=== PATIENT | male | born 1975 | race Caucasian/White ===

== ENCOUNTER → 2017-06-24 | Outpatient (REF) | payer OTHER ==
[2017-06-24 13:49] LABS: ALBUMIN 3.7 GM/DL (3.2-5.2); ALBUMIN/GLOBULIN RATIO 1.09 (1.00-1.93); ALKALINE PHOSPHATASE 103 U/L (45-117); ALT/SGPT 15 U/L (12-78); AST/SGOT 23 U/L (7-37); BILIRUBIN,DIRECT 0.1 MG/DL (0.0-0.2); BILIRUBIN,TOTAL 0.4 MG/DL (0.2-1.0); TOTAL PROTEIN 7.1 GM/DL (6.4-8.2)
[2017-06-26 08:09] LABS: HEPATITIS C QUANTITATION 60 IU/mL (.)
== END ==
LOC: M SFHCPLAZ 09:59
DX: B18.2 Chronic viral hepatitis C (principal)

== ENCOUNTER → 2017-08-13 | Outpatient (CLI) | payer MEDICAID, OTHER | LOC: M EKG 06:27 | DX: F11.20 Opioid dependence, uncomplicated (principal) | CPT/HCPCS: 93005 ==

== ENCOUNTER 2017-11-05 12:16 | Emergency (ER) | payer OTHER, MEDICAID | END 2017-11-05 14:20 | disposition home or self-care (01) | LOC: M ED 12:16 | DX: T78.40XA Allergy, unspecified, initial encounter (principal); X58.XXXA Exposure to other specified factors, initial encounter; Y92.89 Other specified places as the place of occurrence of the external cause; F33.9 Major depressive disorder, recurrent, unspecified; Z79.899 Other long term (current) drug therapy; F17.210 Nicotine dependence, cigarettes, uncomplicated | CPT/HCPCS: 99283 ==

== ENCOUNTER 2017-11-20 13:19 | Emergency (ER) | payer OTHER | END 2017-11-20 15:42 | disposition home or self-care (01) | LOC: M ED 13:19 | DX: J06.9 Acute upper respiratory infection, unspecified (principal); S40.869A Insect bite (nonvenomous) of unspecified upper arm, initial encounter; W57.XXXA Bitten or stung by nonvenomous insect and other nonvenomous arthropods, initial encounter; Y92.199 Unspecified place in other specified residential institution as the place of occurrence of the external cause; Y93.9 Activity, unspecified; Y99.9 Unspecified external cause status; F41.9 Anxiety disorder, unspecified; F32.9 Major depressive disorder, single episode, unspecified; Z72.0 Tobacco use; Z79.899 Other long term (current) drug therapy | CPT/HCPCS: 71046 ==

== ENCOUNTER → 2017-11-21 | Outpatient (CLI) | payer OTHER ==
[2017-11-21 15:50] LABS: ALBUMIN 3.9 GM/DL (3.2-5.2); ALBUMIN/GLOBULIN RATIO 1.18 (1.00-1.93); ALKALINE PHOSPHATASE 108 U/L (45-117); ALT/SGPT 22 U/L (12-78); AST/SGOT 21 U/L (7-37); BILIRUBIN,DIRECT < 0.1 MG/DL (0.0-0.2); BILIRUBIN,TOTAL 0.4 MG/DL (0.2-1.0); TOTAL PROTEIN 7.2 GM/DL (6.4-8.2)
[2017-11-26 14:16] LABS: HEPATITIS C QUANTITATION HCV Not Detected IU/mL (.)
== END ==
LOC: M LAB 14:47
DX: B18.2 Chronic viral hepatitis C (principal)
CPT/HCPCS: 80076

== ENCOUNTER 2018-02-24 12:49 | Emergency (ER) | payer OTHER | END 2018-02-24 14:39 | disposition home or self-care (01) | LOC: M ED 12:49 | DX: L25.0 Unspecified contact dermatitis due to cosmetics (principal); F33.9 Major depressive disorder, recurrent, unspecified; F41.9 Anxiety disorder, unspecified; Z79.899 Other long term (current) drug therapy; F17.210 Nicotine dependence, cigarettes, uncomplicated | CPT/HCPCS: 99282 ==

== ENCOUNTER 2018-04-15 11:36 | Emergency (ER) | payer OTHER ==
[~2018-04-15] VITALS: Ht 182.9 cm; Wt 109.1 kg
[~2018-04-15 11:36] MED LIST changes: -NAPR-50 PO; -VENL75CA47
[2018-04-15] MEDS ORDERED: VENL75CA47 (11:43)
--- NOTE | 2018-04-15 12:57 | REP ---
LEFT FOOT, FOUR VIEWS: HISTORY: Pain. There is no acute fracture or dislocation. The joint spaces are normal in appearance. IMPRESSION:There is no acute fracture or dislocation. Electronically Signed by Ladarius Kelly MD 04/15/2018 01:25 P
[2018-04-15] MEDS ORDERED: NAPR-50 PO (13:56)
[2018-04-15 13:59] VITALS: BP 148/88
== END 2018-04-15 14:04 | disposition home or self-care (01) ==
LOC: M ED 11:36
DX: M79.672 Pain in left foot (principal); F17.210 Nicotine dependence, cigarettes, uncomplicated

== ENCOUNTER → 2018-04-15 | Outpatient (CLI) | payer OTHER ==
[~2018-04-15] MED LIST: ALL10TAB28 PO; BUPR10TASR PO; BUPR15TA PO; HYDR-3363 PO; METH-872 PO; MIRA3350 PO; NAPR-50 PO; PRED10TA2 PO; PROZ10CA7 PO; REME15TA PO; SENN8.6C PO; SENN8.6T7 PO; SILV1CRE60 TOP; TESS100C PO; VENL75CA47
[2018-04-15 11:36] LABS: BASO # 0.1 10^3/uL (0.0-0.2); BASO % 0.6 % (0.0-1.0); EOS # 0.3 10^3/uL (0.0-0.50); EOS % 3.4 % (0.0-3.0); HEMATOCRIT 42.2 % (42.0-52.0); HEMOGLOBIN 13.9 g/dl (13.5-17.5); LYMPH # 3.8 10^3/uL (1.5-4.5); LYMPH % 39.9 % (24.0-44.0); MEAN CORPUSCULAR HEMOGLOBIN 29.3 pg (27.0-33.0); MEAN CORPUSCULAR HGB CONC 32.9 g/dl (32.0-36.5); MEAN CORPUSCULAR VOLUME 88.8 fl (80.0-96.0); MONO # 0.6 10^3/uL (0.0-0.8); NEUTROPHILS # 4.7 10^3/uL (1.8-7.7); NEUTROPHILS % 49.7 % (36.0-66.0); PLATELET COUNT, AUTOMATED 301 10^3/uL (150-450); RED BLOOD COUNT 4.75 10^6/uL (4.30-6.10); WHITE BLOOD COUNT 9.4 10^3/uL (4.0-10.0)
[2018-04-15 12:13] LABS: ALBUMIN 4.2 GM/DL (3.2-5.2); ALT/SGPT 17 U/L (12-78); BILIRUBIN,TOTAL 0.4 MG/DL (0.2-1.0); BLOOD UREA NITROGEN 21 MG/DL (7-18); CALCIUM LEVEL 9.4 MG/DL (8.5-10.1); CARBON DIOXIDE LEVEL 25 MEQ/L (21-32); CHLORIDE LEVEL 105 MEQ/L (98-107); CHOLESTEROL LEVEL 200 MG/DL (<200); CHOLESTEROL RISK RATIO 5.128 (<5); CREATININE FOR GFR 1.04 MG/DL (0.70-1.30); FREE T4 0.99 NG/DL (0.76-1.46); GLOMERULAR FILTRATION RATE > 60.0 (>60); GLUCOSE, FASTING 102 MG/DL (70-100); HDL CHOLESTEROL 39 MG/DL (>40); LDL CHOLESTEROL 135 MG/DL (<100); NON-HDL-C 161 MG/DL; POTASSIUM SERUM 4.9 MEQ/L (3.5-5.1); SODIUM LEVEL 138 MEQ/L (136-145); TESTOSTERONE 157 NG/DL (241-827); TOTAL 25(OH) VITAMIN D 31.1 NG/ML (30.0-100.0); TOTAL PROTEIN 7.7 GM/DL (6.4-8.2); TRIGLYCERIDES LEVEL 130 MG/DL (<150)
--- NOTE | 2018-04-16 01:31 | REP ---
Clinical: Obstructive sleep apnea Comparison: 11/20/2017 . Technique: PA and lateral. Findings: The mediastinum and cardiac silhouette are normal. The lung nieto are clear and without acute consolidation, effusion, or pneumothorax. The skeletal structures are intact and normal. Impression: 1. No acute cardiopulmonary process. Electronically Signed by Matthew Rhoades MD 04/16/2018 01:23 A
== END ==
LOC: M LAB 10:46
PROVIDERS: ATTEND Physician Assistant Medical
DX: E78.2 Mixed hyperlipidemia (principal)

== ENCOUNTER 2018-07-31 09:49 | Emergency (ER) | payer OTHER ==
[~2018-07-31] VITALS: Ht 182.9 cm; Wt 106.4 kg
[~2018-07-31 09:49] MED LIST changes: +NAPR-837 PO; +SENN1TAB41 PO; -SENN8.6T7 PO; +VENL75CA47
[2018-07-31] MEDS ORDERED: CLON-412 (09:59)
--- NOTE | 2018-07-31 11:45 | REP ---
CHEST: Two views. There is no evidence of acute infiltrate. No pleural effusion is seen. The heart is normal in size. The mediastinal silhouette is unremarkable. The visualized osseous structures are intact. IMPRESSION: No acute pulmonary disease. Electronically Signed by Omar English MD 07/31/2018 12:43 P
[2018-07-31 12:31] VITALS: BP 132/87
== END 2018-07-31 12:41 | disposition home or self-care (01) ==
LOC: M ED 09:49
DX: J06.9 Acute upper respiratory infection, unspecified (principal); F41.9 Anxiety disorder, unspecified; Z79.899 Other long term (current) drug therapy

== ENCOUNTER → 2018-09-01 | Outpatient (CLI) | payer OTHER ==
[~2018-09-01] MED LIST changes: +CLON-412
[2018-09-01 13:23] LABS: HEMATOCRIT 41.4 % (42.0-52.0); HEMOGLOBIN 13.2 g/dl (13.5-17.5); MEAN CORPUSCULAR HEMOGLOBIN 28.8 pg (27.0-33.0); MEAN CORPUSCULAR HGB CONC 31.9 g/dl (32.0-36.5); MEAN CORPUSCULAR VOLUME 90.4 fl (80.0-96.0); PLATELET COUNT, AUTOMATED 358 10^3/uL (150-450); RED BLOOD COUNT 4.58 10^6/uL (4.30-6.10)
[2018-09-01 13:43] LABS: ALT/SGPT 26 U/L (12-78); BILIRUBIN,TOTAL 0.2 MG/DL (0.2-1.0); BLOOD UREA NITROGEN 16 MG/DL (7-18); CALCIUM LEVEL 9.7 MG/DL (8.5-10.1); CARBON DIOXIDE LEVEL 30 MEQ/L (21-32); CHLORIDE LEVEL 104 MEQ/L (98-107); CREATININE FOR GFR 0.97 MG/DL (0.70-1.30); GLOMERULAR FILTRATION RATE > 60.0 (>60); GLUCOSE, FASTING 95 MG/DL (70-100); POTASSIUM SERUM 4.8 MEQ/L (3.5-5.1); SODIUM LEVEL 140 MEQ/L (136-145); TOTAL PROTEIN 7.9 GM/DL (6.4-8.2)
[2018-09-01 14:02] LABS: HEPATITIS B SURFACE ANTIGEN NEGATIVE (NEGATIVE)
[2018-09-01 14:30] LABS: HIV 1&2 SCREEN CENTAUR NEGATIVE (NEGATIVE)
[2018-09-01 14:46] LABS: CHLAMYDIA DNA AMPLIFICATION NEGATIVE (NEGATIVE); GC DNA AMPLIFICATION NEGATIVE (NEGATIVE)
[2018-09-01 15:26] LABS: HEPATITIS C VIRUS ABY INDEX > 11.0 INDEX (<0.8)
--- NOTE | 2018-09-04 22:54 | ECGEPIP ---
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
== END ==
LOC: M LAB 11:32
PROVIDERS: ATTEND Family Medicine
DX: F11.20 Opioid dependence, uncomplicated (principal)

== ENCOUNTER → 2019-05-19 | Outpatient (CLI) | payer OTHER ==
[~2019-05-19] MED LIST changes: -ALL10TAB28 PO; +ALL10TAB29 PO
[2019-05-19 10:33] LABS: BASO # 0.1 10^3/uL (0.0-0.2); BASO % 0.8 % (0.0-1.0); EOS # 0.3 10^3/uL (0.0-0.5); EOS % 4.2 % (0.0-3.0); HEMATOCRIT 38.6 % (42.0-52.0); HEMOGLOBIN 12.3 g/dl (13.5-17.5); LYMPH # 3.1 10^3/uL (1.5-5.0); MEAN CORPUSCULAR HEMOGLOBIN 29.8 pg (27.0-33.0); MEAN CORPUSCULAR HGB CONC 31.9 g/dl (32.0-36.5); MEAN CORPUSCULAR VOLUME 93.5 fl (80.0-96.0); MONO # 0.5 10^3/uL (0.0-0.8); MONO % 7.3 % (0.0-5.0); NEUTROPHILS # 3.2 10^3/uL (1.5-8.5); NEUTROPHILS % 44.3 % (36.0-66.0); PLATELET COUNT, AUTOMATED 314 10^3/uL (150-450); RED BLOOD COUNT 4.13 10^6/uL (4.30-6.10); WHITE BLOOD COUNT 7.1 10^3/uL (4.0-10.0)
[2019-05-19 11:09] LABS: ALBUMIN 3.3 GM/DL (3.2-5.2); ALT/SGPT 77 U/L (12-78); BILIRUBIN,TOTAL 0.3 MG/DL (0.2-1.0); BLOOD UREA NITROGEN 14 MG/DL (7-18); CALCIUM LEVEL 8.7 MG/DL (8.5-10.1); CARBON DIOXIDE LEVEL 30 MEQ/L (21-32); CHLORIDE LEVEL 105 MEQ/L (98-107); CHOLESTEROL LEVEL 174 MG/DL (<200); CHOLESTEROL RISK RATIO 4.578 (<5); CREATININE FOR GFR 0.77 MG/DL (0.70-1.30); GLOMERULAR FILTRATION RATE > 60.0 (>60); GLUCOSE, FASTING 107 MG/DL (70-100); HDL CHOLESTEROL 38 MG/DL (>40); LDL CHOLESTEROL 103 MG/DL (<100); NON-HDL-C 136 MG/DL; POTASSIUM SERUM 4.4 MEQ/L (3.5-5.1); SODIUM LEVEL 140 MEQ/L (136-145); TOTAL PROTEIN 6.7 GM/DL (6.4-8.2); TRIGLYCERIDES LEVEL 166 MG/DL (<150)
[2019-05-19 11:11] LABS: TOTAL 25(OH) VITAMIN D 19.3 NG/ML (30.0-100.0)
[2019-05-19 19:27] LABS: HEMOGLOBIN A1c 5.8 %
--- NOTE | 2019-05-20 05:12 | REP ---
Clinical: Bilateral knee pain and swelling. Technique: AP, lateral, bilateral oblique and sunrise views right and left knee. Findings: The osseous structures and joint spaces are intact and normal. There is no evidence for acute fracture or dislocation. No joint effusion is appreciated. No overt arthritic changes are appreciated. Surrounding soft tissues are unremarkable. No subcutaneous emphysema or radiodense foreign body. Impression: Normal age-appropriate bilateral knee examination. Electronically Signed by Matthew Rhoades MD 05/20/2019 05:03 A
--- NOTE | 2019-05-20 05:14 | REP ---
Clinical: Bilateral foot pain. Technique: AP, lateral, bilateral oblique views of the left foot. Findings: Osseous structures, joint spaces, and surrounding soft tissues are essentially age-appropriate. No overt arthritic changes are appreciated. No acute fracture dislocation identified. No subcutaneous emphysema or significant soft tissue calcifications noted. Lateral view demonstrates small calcaneal heal spur. Impression: Small calcaneal heal spur. Otherwise, age-appropriate examination. Electronically Signed by Matthew Rhoades MD 05/20/2019 05:05 A
== END ==
LOC: M LAB 09:19
PROVIDERS: ATTEND Nurse Practitioner Family
DX: Z13.9 Encounter for screening, unspecified (principal); M77.32 Calcaneal spur, left foot; Z72.0 Tobacco use; M54.9 Dorsalgia, unspecified; M79.89 Other specified soft tissue disorders; M25.462 Effusion, left knee; M25.561 Pain in right knee

== ENCOUNTER 2022-07-18 13:34 | Inpatient (IN) | payer OTHER ==
[~2022-07-18] VITALS: Ht 182.9 cm; Wt 81.1 kg
[~2022-07-18 13:34] MED LIST changes: -ALL10TAB29 PO; +CETI-24 PO; +METH-1178 PO; -METH-872 PO; +MIRT-62 PO; -REME15TA PO
[2022-07-18] MEDS ORDERED: ACETAMINOPHEN 325 MG TAB PO ONE (16:15)
[2022-07-18 18:23] LABS: RSV AMPLIFICATION NEGATIVE (NEGATIVE)
[2022-07-18 18:53] LABS: BASO % 0.2 % (0.0-1.0); EOS % 0.2 % (0.0-3.0); HEMATOCRIT 34.7 % (42.0-52.0); LYMPH # 1.6 10^3/uL (1.5-5.0); LYMPH % 11.9 % (24.0-44.0); MEAN CORPUSCULAR HEMOGLOBIN 26.3 pg (27.0-33.0); MEAN CORPUSCULAR HGB CONC 31.7 g/dl (32.0-36.5); MONO % 7.7 % (2.0-8.0); NEUTROPHILS # 10.6 10^3/uL (1.5-8.5); NEUTROPHILS % 79.4 % (36.0-66.0); PLATELET COUNT, AUTOMATED 468 10^3/uL (150-450); RED BLOOD COUNT 4.18 10^6/uL (4.30-6.10); WHITE BLOOD COUNT 13.3 10^3/uL (4.0-10.0)
[2022-07-18 19:03] LABS: INR 1.11; PARTIAL THROMBOPLASTIN TIME 28.5 SECONDS (24.8-34.2); PROTHROMBIN TIME 14.5 SECONDS (12.5-14.5)
[2022-07-18 19:04] LABS: ERYTHROCYTE SEDIMENTATION RATE 91 mm/hr (0-15)
[2022-07-18 19:20] LABS: ALBUMIN 2.2 G/DL (3.2-5.2); ALKALINE PHOSPHATASE 127 U/L (46-116); ALT/SGPT 47 U/L (7.0-40); AST/SGOT 58 U/L (<34); BILIRUBIN,DIRECT 0.5 MG/DL (<0.4); BILIRUBIN,TOTAL 0.9 MG/DL (0.3-1.2); BLOOD UREA NITROGEN 9 MG/DL (9-23); CALCIUM LEVEL 8.4 MG/DL (8.5-10.1); CARBON DIOXIDE LEVEL 29 MMOL/L (20-31); CHLORIDE LEVEL 97 MMOL/L (98-107); CREATININE FOR GFR 0.68 MG/DL (0.70-1.30); GLOMERULAR FILTRATION RATE > 60.0 (>60); GLUCOSE, FASTING 106 MG/DL (60-100); POTASSIUM SERUM 3.9 MMOL/L (3.5-5.1); SODIUM LEVEL 132 MMOL/L (136-145); TOTAL PROTEIN 6.8 G/DL (5.7-8.2)
[2022-07-18] MEDS ORDERED: KETOROLAC 30 MG/ML 1ML VIAL IV ONE (20:25)
[2022-07-18] MEDS ORDERED: VANCOMYCIN HCL 1,750 MG in NS 250 ML IV ONE (20:45)
[2022-07-18] MEDS ORDERED: VANCOMYCIN HCL 1,000 MG, VIAL MATE ADAPTER 1 EACH in D5W 250 ML IV ONE (21:00)
[2022-07-18] MEDS ORDERED: VANCOMYCIN HCL 750 MG, VIAL MATE ADAPTER 1 EACH in D5W 250 ML IV ONE (22:00)
[2022-07-18] MEDS ORDERED: ACETAMINOPHEN TAB 650MG DOSE (2X325MG) PO PRN (22:05)
[2022-07-18] MEDS ORDERED: HEPARIN SOD (PORCINE) 5000UNITS/ML 1ML VIAL/SYRINGE IV PRN (23:45)
[2022-07-19 00:27] LABS: HEMATOCRIT 37.9 % (42.0-52.0); HEMOGLOBIN 11.8 g/dl (13.5-17.5); MEAN CORPUSCULAR HEMOGLOBIN 26.2 pg (27.0-33.0); MEAN CORPUSCULAR HGB CONC 31.1 g/dl (32.0-36.5); PLATELET COUNT, AUTOMATED 469 10^3/uL (150-450); RED BLOOD COUNT 4.51 10^6/uL (4.30-6.10); WHITE BLOOD COUNT 11.7 10^3/uL (4.0-10.0)
[2022-07-19] MEDS: NS 1,000 ML IV SCH ×3 (00:27→17:48)
[2022-07-19] MEDS: HEPARIN DRIP 25,000 UNITS in IV 1 EA IV SCH ×3 (00:34→12:09)
[2022-07-19 01:22] LABS: PHENCYCLIDINE URINE NEGATIVE (NEGATIVE)
[2022-07-19 01:23] LABS: BARBITURATES URINE NEGATIVE (NEGATIVE); BENZODIAZEPINES URINE NEGATIVE (NEGATIVE); CANNABINOIDS URINE NEGATIVE (NEGATIVE); COCAINE METABOLITE URINE NEGATIVE (NEGATIVE); METHADONE URINE NEGATIVE (NEGATIVE); OPIATES URINE NEGATIVE (NEGATIVE)
[2022-07-19 01:25] LABS: AMPHETAMINES LEVEL URINE POSITIVE (NEGATIVE)
[2022-07-19] MEDS ORDERED: HOME MED LIST COMPLETE! XX SCH (05:45)
[2022-07-19 07:05] LABS: HEMATOCRIT 36.9 % (42.0-52.0); HEMOGLOBIN 11.4 g/dl (13.5-17.5); MEAN CORPUSCULAR HGB CONC 30.9 g/dl (32.0-36.5); MEAN CORPUSCULAR VOLUME 84.2 fl (80.0-96.0); PLATELET COUNT, AUTOMATED 440 10^3/uL (150-450); RED BLOOD COUNT 4.38 10^6/uL (4.30-6.10); WHITE BLOOD COUNT 9.7 10^3/uL (4.0-10.0)
[2022-07-19 07:17] LABS: INR 1.05; PROTHROMBIN TIME 13.9 SECONDS (12.5-14.5)
[2022-07-19 07:18] LABS: PARTIAL THROMBOPLASTIN TIME 41.1 SECONDS (24.8-34.2)
[2022-07-19 07:29] LABS: PERCENT SATURATION 6.7 % (19.7-50.0)
[2022-07-19 07:30] LABS: ALBUMIN 2.4 G/DL (3.2-5.2); ALKALINE PHOSPHATASE 112 U/L (46-116); ALT/SGPT 42 U/L (7.0-40); AST/SGOT 54 U/L (<34); BILIRUBIN,TOTAL 0.8 MG/DL (0.3-1.2); BLOOD UREA NITROGEN 7 MG/DL (9-23); CALCIUM LEVEL 8.8 MG/DL (8.5-10.1); CARBON DIOXIDE LEVEL 30 MMOL/L (20-31); CHLORIDE LEVEL 100 MMOL/L (98-107); CREATININE FOR GFR 0.72 MG/DL (0.70-1.30); FERRITIN 290.6 NG/ML (10.5-307.3); GLOMERULAR FILTRATION RATE > 60.0 (>60); GLUCOSE, FASTING 99 MG/DL (60-100); MAGNESIUM LEVEL 1.7 MG/DL (1.8-2.4); POTASSIUM SERUM 3.4 MMOL/L (3.5-5.1); SODIUM LEVEL 136 MMOL/L (136-145); TOTAL PROTEIN 7.2 G/DL (5.7-8.2)
[2022-07-19 07:32] LABS: FOLATE 11.16 NG/ML (>5.4)
[2022-07-19] MEDS: VANCOMYCIN HCL 1,000 MG, VIAL MATE ADAPTER 1 EACH in D5W 250 ML IV SCH ×3 (07:44→23:28)
[2022-07-19] MEDS ORDERED: cefTRIAXone SOD 1 GM in D5W MINI-BAG PLUS 50 ML IV SCH (08:00)
[2022-07-19] MEDS ORDERED: LIDOCAINE 1% MDV 20ML VIAL As Ordered ONE (14:12)
[2022-07-19 14:56] LABS: SOURCE, BODY FLUID RT HIP; SYNOVIAL FLUID COLOR RED (COLORLESS)
[2022-07-19 14:59] VITALS: BP 116/74; TEMP 98; O2SAT 98
[2022-07-19 14:59] LABS: SOURCE, BODY FLUID URIC ACID OTHER
[2022-07-19 15:00] LABS: SOURCE, BODY FLUID GLUCOSE HIP RIGHT
[2022-07-19 15:02] LABS: INR 1.09; PROTHROMBIN TIME 14.3 SECONDS (12.5-14.5)
[2022-07-19 15:03] LABS: PARTIAL THROMBOPLASTIN TIME 44.9 SECONDS (24.8-34.2)
[2022-07-19 15:13] LABS: CRYSTALS, BODY FLUID NONE SEEN (NONE SEEN); SOURCE, BODY FLUID CRYSTALS RIGHT HIP
[2022-07-19] MEDS ORDERED: MAG SULF 1GM/100ML (MAG RUN) 1 GM in IV 1 EA IV SCH (19:05)
[2022-07-19] MEDS ORDERED: MAG SULF 1GM/100ML (MAG RUN) 1 GM in IV 1 EA IV ONE (19:08)
[2022-07-19] MEDS ORDERED: PROHANCE 279.3MG/ML 15ML VIAL As Ordered ONE (20:00)
[2022-07-19] MEDS ORDERED: PROHANCE 279.3MG/ML 5ML VIAL As Ordered ONE (20:00)
[2022-07-19] MEDS: PERCOCET 5MG/325MG TAB PO PRN (21:14)
[2022-07-19] MEDS ORDERED: cefTRIAXone SOD 2GM VIAL IM SCH (22:00)
[2022-07-19] MEDS ORDERED: cefTRIAXone SOD 2 GM in D5W MINI-BAG PLUS 50 ML IV SCH (22:00)
[2022-07-19 23:56] VITALS: BP 109/55; TEMP 96.8; O2SAT 96
[2022-07-20] MEDS: NS 1,000 ML IV SCH ×2 (04:05→14:55)
[2022-07-20] MEDS: VANCOMYCIN HCL 1,000 MG, VIAL MATE ADAPTER 1 EACH in D5W 250 ML IV SCH ×3 (04:50→20:15)
[2022-07-20] MEDS: HEPARIN DRIP 25,000 UNITS in IV 1 EA IV SCH ×2 (05:12→15:04)
[2022-07-20 05:19] VITALS: BP 112/58; TEMP 97.9; O2SAT 95
[2022-07-20] MEDS: PERCOCET 5MG/325MG TAB PO PRN (05:29)
[2022-07-20 08:07] LABS: BASO # 0.1 10^3/uL (0.0-0.2); BASO % 0.5 % (0.0-1.0); EOS # 0.1 10^3/uL (0.0-0.5); EOS % 1.1 % (0.0-3.0); HEMATOCRIT 32.5 % (42.0-52.0); HEMOGLOBIN 10.1 g/dl (13.5-17.5); LYMPH # 2.3 10^3/uL (1.5-5.0); LYMPH % 24.8 % (24.0-44.0); MEAN CORPUSCULAR HEMOGLOBIN 26.2 pg (27.0-33.0); MEAN CORPUSCULAR HGB CONC 31.1 g/dl (32.0-36.5); MEAN CORPUSCULAR VOLUME 84.4 fl (80.0-96.0); MONO # 0.7 10^3/uL (0.0-0.8); MONO % 7.7 % (2.0-8.0); NEUTROPHILS # 6.2 10^3/uL (1.5-8.5); NEUTROPHILS % 65.3 % (36.0-66.0); PLATELET COUNT, AUTOMATED 424 10^3/uL (150-450); RED BLOOD COUNT 3.85 10^6/uL (4.30-6.10); WHITE BLOOD COUNT 9.4 10^3/uL (4.0-10.0)
[2022-07-20 08:40] VITALS: BP 111/65; TEMP 98.2; O2SAT 95
[2022-07-20 08:44] LABS: BLOOD UREA NITROGEN 8 MG/DL (9-23); CALCIUM LEVEL 7.5 MG/DL (8.5-10.1); CARBON DIOXIDE LEVEL 29 MMOL/L (20-31); CHLORIDE LEVEL 103 MMOL/L (98-107); CREATININE FOR GFR 0.66 MG/DL (0.70-1.30); GLOMERULAR FILTRATION RATE > 60.0 (>60); GLUCOSE, FASTING 127 MG/DL (60-100); POTASSIUM SERUM 3.9 MMOL/L (3.5-5.1); SODIUM LEVEL 137 MMOL/L (136-145)
[2022-07-20 12:50] VITALS: BP 102/62; TEMP 97.7; O2SAT 99
[2022-07-20] MEDS: MUPIROCIN 2% OINT 22 GM TUBE TOP SCH ×2 (14:55→20:15)
[2022-07-20 15:52] VITALS: BP 118/72; TEMP 97.7; O2SAT 100
[2022-07-20 20:46] VITALS: BP 133/63; TEMP 97.9; O2SAT 98
[2022-07-21] VITALS (9 sets, daily range): BP systolic 119–136; BP diastolic 67–81; TEMP 96.8–97.8; O2SAT 95–100
[2022-07-21] MEDS: PERCOCET 5MG/325MG TAB PO PRN ×2 (02:18→20:19)
[2022-07-21] MEDS: NS 1,000 ML IV SCH ×2 (02:19→10:05)
[2022-07-21] MEDS: VANCOMYCIN HCL 1,000 MG, VIAL MATE ADAPTER 1 EACH in D5W 250 ML IV SCH ×3 (04:00→20:19)
[2022-07-21] MEDS ORDERED: MIDAZOLAM INJ 2MG/2ML VIAL As Ordered ONE (07:25)
[2022-07-21] MEDS ORDERED: LIDOCAINE 2% 100MG/5ML SDV (FOR ANES.) As Ordered ONE (07:25)
[2022-07-21] MEDS ORDERED: propofoL 200 MG/20 ML VIAL As Ordered ONE (07:25)
[2022-07-21] MEDS ORDERED: fentaNYL 100 MCG/2 ML INJECTION As Ordered ONE ×3 (07:25→10:45)
[2022-07-21] MEDS ORDERED: VANCOMYCIN 1000MG/20ML VIAL As Ordered ONE (08:29)
[2022-07-21] MEDS ORDERED: GENTAMICIN SULF 80MG/2ML VIAL As Ordered ONE (08:29)
[2022-07-21] MEDS ORDERED: ROCURONIUM BROMIDE 50MG/5ML VIAL As Ordered ONE (09:06)
[2022-07-21] MEDS ORDERED: PHENYLephrine 500MCG 5ML (100MCG/ML) SYRINGE As Ordered ONE ×2 (09:35→09:51)
[2022-07-21] MEDS ORDERED: ONDANSETRON 4MG 2ML VIAL As Ordered ONE (09:42)
[2022-07-21] MEDS ORDERED: METOCLOPRAMIDE INJ 10MG/2ML VIAL As Ordered ONE (09:42)
[2022-07-21] MEDS ORDERED: ACETAMINOPHEN 1000MG 100ML IV BAG As Ordered ONE (09:44)
[2022-07-21] MEDS ORDERED: SUGAMMADEX SODIUM 500 MG/5 ML VIAL (BRIDION) As Ordered ONE (09:45)
[2022-07-21] MEDS ORDERED: oxyCODONE 5MG TAB PO PRN (10:45)
[2022-07-21] MEDS ORDERED: ONDANSETRON 4MG 2ML VIAL IV PRN (10:45)
[2022-07-21] MEDS ORDERED: MORPHINE 2 MG/ML 1ML VIAL IV PRN (10:45)
[2022-07-21] MEDS: fentaNYL 100 MCG/2 ML INJECTION IV PRN ×4 (10:47→11:07)
[2022-07-21] MEDS: MUPIROCIN 2% OINT 22 GM TUBE TOP SCH ×2 (11:53→20:19)
[2022-07-21] MEDS ORDERED: HEPARIN SOD (PORCINE) 5000UNITS/ML 1ML VIAL/SYRINGE IV ONE (16:50)
[2022-07-21] MEDS: HEPARIN DRIP 25,000 UNITS in IV 1 EA IV SCH (18:51)
[2022-07-22] MEDS: NS 1,000 ML IV SCH ×3 (01:11→13:05)
[2022-07-22 01:17] LABS: HEMATOCRIT 34.3 % (42.0-52.0); HEMOGLOBIN 10.6 g/dl (13.5-17.5); MEAN CORPUSCULAR HEMOGLOBIN 25.8 pg (27.0-33.0); MEAN CORPUSCULAR HGB CONC 30.9 g/dl (32.0-36.5); MEAN CORPUSCULAR VOLUME 83.5 fl (80.0-96.0); PLATELET COUNT, AUTOMATED 506 10^3/uL (150-450); RED BLOOD COUNT 4.11 10^6/uL (4.30-6.10); WHITE BLOOD COUNT 10.6 10^3/uL (4.0-10.0)
[2022-07-22 01:34] LABS: INR 1.01; PROTHROMBIN TIME 13.5 SECONDS (12.5-14.5)
[2022-07-22 01:35] LABS: PARTIAL THROMBOPLASTIN TIME 37.5 SECONDS (24.8-34.2)
[2022-07-22] MEDS: HEPARIN SOD (PORCINE) 5000UNITS/ML 1ML VIAL/SYRINGE IV PRN ×2 (01:51→15:40)
[2022-07-22] MEDS: VANCOMYCIN HCL 1,000 MG, VIAL MATE ADAPTER 1 EACH in D5W 250 ML IV SCH ×3 (04:33→20:10)
[2022-07-22 04:49] VITALS: BP 116/61; TEMP 97.9; O2SAT 95
[2022-07-22] MEDS: HEPARIN DRIP 25,000 UNITS in IV 1 EA IV SCH ×2 (06:26→20:28)
[2022-07-22 07:49] VITALS: BP 109/61; TEMP 98.4; O2SAT 97
[2022-07-22 08:29] LABS: HEMATOCRIT 34.5 % (42.0-52.0); HEMOGLOBIN 10.8 g/dl (13.5-17.5); MEAN CORPUSCULAR HEMOGLOBIN 26.2 pg (27.0-33.0); MEAN CORPUSCULAR HGB CONC 31.3 g/dl (32.0-36.5); MEAN CORPUSCULAR VOLUME 83.7 fl (80.0-96.0); PLATELET COUNT, AUTOMATED 475 10^3/uL (150-450); RED BLOOD COUNT 4.12 10^6/uL (4.30-6.10); WHITE BLOOD COUNT 11.1 10^3/uL (4.0-10.0)
[2022-07-22] MEDS: MUPIROCIN 2% OINT 22 GM TUBE TOP SCH ×2 (08:40→20:29)
[2022-07-22 08:46] LABS: INR 1.06
[2022-07-22 08:49] LABS: PARTIAL THROMBOPLASTIN TIME 107.5 SECONDS (24.8-34.2)
[2022-07-22 09:00] LABS: BLOOD UREA NITROGEN < 5 MG/DL (9-23); CARBON DIOXIDE LEVEL 29 MMOL/L (20-31); CHLORIDE LEVEL 104 MMOL/L (98-107); CREATININE FOR GFR 0.63 MG/DL (0.70-1.30); GLOMERULAR FILTRATION RATE > 60.0 (>60); GLUCOSE, FASTING 146 MG/DL (60-100); POTASSIUM SERUM 4.2 MMOL/L (3.5-5.1); SODIUM LEVEL 138 MMOL/L (136-145)
[2022-07-22] MEDS: PERCOCET 5MG/325MG TAB PO PRN (15:53)
[2022-07-22 20:13] VITALS: BP 108/66; TEMP 97.9; O2SAT 98
[2022-07-23] MEDS: NS 1,000 ML IV SCH ×2 (02:34→12:57)
[2022-07-23 03:56] LABS: HEMOGLOBIN 10.4 g/dl (13.5-17.5); MEAN CORPUSCULAR HEMOGLOBIN 26.3 pg (27.0-33.0); MEAN CORPUSCULAR HGB CONC 31.5 g/dl (32.0-36.5); MEAN CORPUSCULAR VOLUME 83.3 fl (80.0-96.0); PLATELET COUNT, AUTOMATED 468 10^3/uL (150-450); RED BLOOD COUNT 3.96 10^6/uL (4.30-6.10); WHITE BLOOD COUNT 12.1 10^3/uL (4.0-10.0)
[2022-07-23 04:08] LABS: INR 1.09; PROTHROMBIN TIME 14.3 SECONDS (12.5-14.5)
[2022-07-23 04:21] VITALS: BP 126/68; TEMP 97.7; O2SAT 96
[2022-07-23] MEDS: VANCOMYCIN HCL 1,000 MG, VIAL MATE ADAPTER 1 EACH in D5W 250 ML IV SCH ×3 (04:29→19:58)
[2022-07-23] MEDS: PERCOCET 5MG/325MG TAB PO PRN ×3 (04:33→15:00)
[2022-07-23 04:57] LABS: BLOOD UREA NITROGEN 6 MG/DL (9-23); CALCIUM LEVEL 7.9 MG/DL (8.5-10.1); CARBON DIOXIDE LEVEL 27 MMOL/L (20-31); CHLORIDE LEVEL 102 MMOL/L (98-107); CREATININE FOR GFR 0.63 MG/DL (0.70-1.30); GLOMERULAR FILTRATION RATE > 60.0 (>60); GLUCOSE, FASTING 108 MG/DL (60-100); POTASSIUM SERUM 3.9 MMOL/L (3.5-5.1); SODIUM LEVEL 134 MMOL/L (136-145)
[2022-07-23 05:15] LABS: PARTIAL THROMBOPLASTIN TIME 138.2 SECONDS (24.8-34.2)
[2022-07-23 07:57] VITALS: BP 109/63; TEMP 97.1; O2SAT 94
[2022-07-23] MEDS: MUPIROCIN 2% OINT 22 GM TUBE TOP SCH ×2 (09:29→19:59)
[2022-07-23] MEDS: ENOXAPARIN 80MG/0.8ML SYRINGE (J1650 PER 10MG) SC SCH ×2 (09:29→19:58)
[2022-07-23 09:54] LABS: GLOMERULAR FILTRATION RATE > 60.0 (>60)
[2022-07-23 15:40] VITALS: BP 106/74; TEMP 97.9; O2SAT 95
[2022-07-23 19:54] VITALS: BP 116/62; TEMP 98.1; O2SAT 98
[2022-07-23 21:38] VITALS: BP 111/63; TEMP 97.7; O2SAT 98
[2022-07-24] MEDS: NS 1,000 ML IV SCH ×2 (02:28→08:27)
[2022-07-24] MEDS: VANCOMYCIN HCL 1,000 MG, VIAL MATE ADAPTER 1 EACH in D5W 250 ML IV SCH ×3 (03:51→19:47)
[2022-07-24 04:47] VITALS: BP 110/68
[2022-07-24] MEDS: PERCOCET 5MG/325MG TAB PO PRN ×3 (04:50→23:50)
[2022-07-24 05:54] VITALS: BP 110/66; TEMP 97.9; O2SAT 94
[2022-07-24 06:00] VITALS: BP 110/66; TEMP 97.9; O2SAT 94
[2022-07-24 06:28] LABS: HEMATOCRIT 33.8 % (42.0-52.0); HEMOGLOBIN 10.4 g/dl (13.5-17.5); MEAN CORPUSCULAR HEMOGLOBIN 26.1 pg (27.0-33.0); MEAN CORPUSCULAR HGB CONC 30.8 g/dl (32.0-36.5); MEAN CORPUSCULAR VOLUME 84.7 fl (80.0-96.0); PLATELET COUNT, AUTOMATED 451 10^3/uL (150-450); RED BLOOD COUNT 3.99 10^6/uL (4.30-6.10); WHITE BLOOD COUNT 9.8 10^3/uL (4.0-10.0)
[2022-07-24 06:50] LABS: BLOOD UREA NITROGEN 7 MG/DL (9-23); CARBON DIOXIDE LEVEL 27 MMOL/L (20-31); CHLORIDE LEVEL 104 MMOL/L (98-107); CREATININE FOR GFR 0.62 MG/DL (0.70-1.30); GLOMERULAR FILTRATION RATE > 60.0 (>60); GLUCOSE, FASTING 105 MG/DL (60-100); POTASSIUM SERUM 4.1 MMOL/L (3.5-5.1); SODIUM LEVEL 137 MMOL/L (136-145)
[2022-07-24] MEDS: ENOXAPARIN 80MG/0.8ML SYRINGE (J1650 PER 10MG) SC SCH ×2 (08:26→19:48)
[2022-07-24] MEDS: MUPIROCIN 2% OINT 22 GM TUBE TOP SCH ×2 (08:27→19:47)
[2022-07-24 08:33] LABS: MAGNESIUM LEVEL 1.6 MG/DL (1.8-2.4)
[2022-07-24] MEDS: MAG SULF 1GM/100ML (MAG RUN) 1 GM in IV 1 EA IV SCH ×2 (10:29→11:42)
[2022-07-24 14:00] VITALS: BP 110/67; TEMP 97.7; O2SAT 100
[2022-07-24 23:42] VITALS: BP 111/65
[2022-07-25] MEDS: VANCOMYCIN HCL 1,000 MG, VIAL MATE ADAPTER 1 EACH in D5W 250 ML IV SCH ×3 (03:29→20:04)
[2022-07-25 05:32] VITALS: BP 111/71; TEMP 98.1; O2SAT 95
[2022-07-25 06:25] LABS: BASO # 0.1 10^3/uL (0.0-0.2); BASO % 0.5 % (0.0-1.0); EOS # 0.3 10^3/uL (0.0-0.5); EOS % 3.2 % (0.0-3.0); HEMATOCRIT 36.6 % (42.0-52.0); HEMOGLOBIN 11.3 g/dl (13.5-17.5); LYMPH # 2.3 10^3/uL (1.5-5.0); LYMPH % 22.8 % (24.0-44.0); MEAN CORPUSCULAR HEMOGLOBIN 26.3 pg (27.0-33.0); MEAN CORPUSCULAR HGB CONC 30.9 g/dl (32.0-36.5); MEAN CORPUSCULAR VOLUME 85.3 fl (80.0-96.0); MONO # 0.7 10^3/uL (0.0-0.8); MONO % 6.6 % (2.0-8.0); NEUTROPHILS # 6.8 10^3/uL (1.5-8.5); NEUTROPHILS % 65.9 % (36.0-66.0); PLATELET COUNT, AUTOMATED 506 10^3/uL (150-450); RED BLOOD COUNT 4.29 10^6/uL (4.30-6.10); WHITE BLOOD COUNT 10.2 10^3/uL (4.0-10.0)
[2022-07-25 06:52] LABS: BLOOD UREA NITROGEN 8 MG/DL (9-23); CALCIUM LEVEL 8.2 MG/DL (8.5-10.1); CARBON DIOXIDE LEVEL 28 MMOL/L (20-31); CHLORIDE LEVEL 103 MMOL/L (98-107); CREATININE FOR GFR 0.59 MG/DL (0.70-1.30); GLOMERULAR FILTRATION RATE > 60.0 (>60); GLUCOSE, FASTING 97 MG/DL (60-100); MAGNESIUM LEVEL 1.7 MG/DL (1.8-2.4); POTASSIUM SERUM 4.5 MMOL/L (3.5-5.1); SODIUM LEVEL 137 MMOL/L (136-145)
[2022-07-25] MEDS: ENOXAPARIN 80MG/0.8ML SYRINGE (J1650 PER 10MG) SC SCH ×2 (09:13→20:05)
[2022-07-25] MEDS: MUPIROCIN 2% OINT 22 GM TUBE TOP SCH ×2 (09:14→20:05)
[2022-07-25] MEDS: PERCOCET 5MG/325MG TAB PO PRN ×3 (09:18→21:05)
[2022-07-25] MEDS ORDERED: LIDOCAINE 1% MDV 20ML VIAL As Ordered ONE (13:53)
[2022-07-25] MEDS ORDERED: SODIUM CHLORIDE 0.9% INJ 10 ML SYR IV PRN (15:35)
[2022-07-25] MEDS: SODIUM CHLORIDE 0.9% INJ 10 ML SYR IV SCH (18:17)
[2022-07-26] MEDS: VANCOMYCIN HCL 1,000 MG, VIAL MATE ADAPTER 1 EACH in D5W 250 ML IV SCH ×3 (03:57→19:55)
[2022-07-26] MEDS: SODIUM CHLORIDE 0.9% INJ 10 ML SYR IV SCH ×2 (05:14→17:35)
[2022-07-26 06:00] VITALS: BP 124/75; TEMP 98.1; O2SAT 97
[2022-07-26 06:20] LABS: BASO % 0.4 % (0.0-1.0); EOS # 0.3 10^3/uL (0.0-0.5); EOS % 2.6 % (0.0-3.0); HEMATOCRIT 36.3 % (42.0-52.0); HEMOGLOBIN 11.2 g/dl (13.5-17.5); LYMPH # 2.3 10^3/uL (1.5-5.0); LYMPH % 21.6 % (24.0-44.0); MEAN CORPUSCULAR HEMOGLOBIN 26.2 pg (27.0-33.0); MEAN CORPUSCULAR HGB CONC 30.9 g/dl (32.0-36.5); MONO # 0.8 10^3/uL (0.0-0.8); MONO % 7.2 % (2.0-8.0); NEUTROPHILS # 7.1 10^3/uL (1.5-8.5); NEUTROPHILS % 67.2 % (36.0-66.0); PLATELET COUNT, AUTOMATED 480 10^3/uL (150-450); RED BLOOD COUNT 4.27 10^6/uL (4.30-6.10); WHITE BLOOD COUNT 10.5 10^3/uL (4.0-10.0)
[2022-07-26 06:49] LABS: BLOOD UREA NITROGEN 10 MG/DL (9-23); CALCIUM LEVEL 8.2 MG/DL (8.5-10.1); CARBON DIOXIDE LEVEL 29 MMOL/L (20-31); CHLORIDE LEVEL 102 MMOL/L (98-107); CREATININE FOR GFR 0.61 MG/DL (0.70-1.30); GLOMERULAR FILTRATION RATE > 60.0 (>60); GLUCOSE, FASTING 101 MG/DL (60-100); MAGNESIUM LEVEL 1.6 MG/DL (1.8-2.4); POTASSIUM SERUM 4.4 MMOL/L (3.5-5.1); SODIUM LEVEL 135 MMOL/L (136-145)
[2022-07-26] MEDS: MUPIROCIN 2% OINT 22 GM TUBE TOP SCH ×2 (09:52→19:57)
[2022-07-26] MEDS: ENOXAPARIN 80MG/0.8ML SYRINGE (J1650 PER 10MG) SC SCH ×2 (09:52→19:56)
[2022-07-26] MEDS: PERCOCET 5MG/325MG TAB PO PRN (09:53)
[2022-07-26] MEDS ORDERED: MIRALAX *UNIT DOSE* 17GM PACKET PO PRN (13:40)
[2022-07-26] MEDS ORDERED: MOM 30ML SUSPENSION UDC PO PRN (13:40)
[2022-07-26] MEDS: SENOKOT S TAB PO PRN (14:32)
[2022-07-26] MEDS: MAGNESIUM OXIDE 400MG TAB (MAG-OX) PO SCH (14:32)
[2022-07-26] MEDS: oxyCODONE 5MG TAB PO PRN (15:58)
[2022-07-27] MEDS: oxyCODONE 5MG TAB PO PRN ×2 (03:11→09:52)
[2022-07-27] MEDS: VANCOMYCIN HCL 1,000 MG, VIAL MATE ADAPTER 1 EACH in D5W 250 ML IV SCH ×3 (04:22→19:49)
[2022-07-27] MEDS: SODIUM CHLORIDE 0.9% INJ 10 ML SYR IV SCH ×2 (05:59→14:22)
[2022-07-27 06:00] VITALS: BP 105/70; TEMP 97.5; O2SAT 94
[2022-07-27 06:48] LABS: BASO # 0.1 10^3/uL (0.0-0.2); BASO % 0.5 % (0.0-1.0); EOS # 0.2 10^3/uL (0.0-0.5); HEMATOCRIT 34.7 % (42.0-52.0); HEMOGLOBIN 10.8 g/dl (13.5-17.5); LYMPH # 2.4 10^3/uL (1.5-5.0); LYMPH % 24.1 % (24.0-44.0); MEAN CORPUSCULAR HEMOGLOBIN 26.2 pg (27.0-33.0); MEAN CORPUSCULAR HGB CONC 31.1 g/dl (32.0-36.5); MEAN CORPUSCULAR VOLUME 84.2 fl (80.0-96.0); MONO # 0.8 10^3/uL (0.0-0.8); MONO % 7.4 % (2.0-8.0); NEUTROPHILS # 6.6 10^3/uL (1.5-8.5); NEUTROPHILS % 65.2 % (36.0-66.0); PLATELET COUNT, AUTOMATED 491 10^3/uL (150-450); RED BLOOD COUNT 4.12 10^6/uL (4.30-6.10); WHITE BLOOD COUNT 10.1 10^3/uL (4.0-10.0)
[2022-07-27 07:18] LABS: BLOOD UREA NITROGEN 11 MG/DL (9-23); CALCIUM LEVEL 8.6 MG/DL (8.5-10.1); CARBON DIOXIDE LEVEL 29 MMOL/L (20-31); CHLORIDE LEVEL 100 MMOL/L (98-107); CREATININE FOR GFR 0.63 MG/DL (0.70-1.30); GLOMERULAR FILTRATION RATE > 60.0 (>60); GLUCOSE, FASTING 123 MG/DL (60-100); MAGNESIUM LEVEL 1.8 MG/DL (1.8-2.4); POTASSIUM SERUM 4.4 MMOL/L (3.5-5.1); SODIUM LEVEL 134 MMOL/L (136-145)
[2022-07-27] MEDS: ENOXAPARIN 80MG/0.8ML SYRINGE (J1650 PER 10MG) SC SCH ×2 (09:50→19:49)
[2022-07-27] MEDS: SENOKOT S TAB PO PRN (09:51)
[2022-07-27] MEDS: MUPIROCIN 2% OINT 22 GM TUBE TOP SCH ×2 (09:51→19:57)
[2022-07-27] MEDS: MAGNESIUM OXIDE 400MG TAB (MAG-OX) PO SCH (09:51)
[2022-07-27] MEDS ORDERED: ISOVUE-370 76% 100ML VIAL As Ordered ONE (11:43)
[2022-07-27] MEDS: MORPHINE 15 MG SA TAB PO SCH ×2 (11:44→19:53)
[2022-07-27 19:53] VITALS: BP 107/70
[2022-07-28 00:34] VITALS: BP 106/61
[2022-07-28] MEDS: oxyCODONE 5MG TAB PO PRN (00:35)
[2022-07-28] MEDS: VANCOMYCIN HCL 1,000 MG, VIAL MATE ADAPTER 1 EACH in D5W 250 ML IV SCH ×3 (03:30→20:09)
[2022-07-28 05:49] LABS: BASO # 0.1 10^3/uL (0.0-0.2); BASO % 0.5 % (0.0-1.0); EOS # 0.3 10^3/uL (0.0-0.5); EOS % 2.8 % (0.0-3.0); HEMATOCRIT 34.3 % (42.0-52.0); HEMOGLOBIN 10.5 g/dl (13.5-17.5); LYMPH # 2.8 10^3/uL (1.5-5.0); LYMPH % 30.2 % (24.0-44.0); MEAN CORPUSCULAR HEMOGLOBIN 26.1 pg (27.0-33.0); MEAN CORPUSCULAR HGB CONC 30.6 g/dl (32.0-36.5); MEAN CORPUSCULAR VOLUME 85.1 fl (80.0-96.0); MONO # 0.8 10^3/uL (0.0-0.8); MONO % 8.4 % (2.0-8.0); NEUTROPHILS # 5.3 10^3/uL (1.5-8.5); NEUTROPHILS % 57.2 % (36.0-66.0); PLATELET COUNT, AUTOMATED 443 10^3/uL (150-450); RED BLOOD COUNT 4.03 10^6/uL (4.30-6.10); WHITE BLOOD COUNT 9.3 10^3/uL (4.0-10.0)
[2022-07-28 05:51] VITALS: BP 103/59; TEMP 98.1; O2SAT 95
[2022-07-28] MEDS: SODIUM CHLORIDE 0.9% INJ 10 ML SYR IV SCH ×2 (05:57→18:04)
[2022-07-28 06:14] LABS: BLOOD UREA NITROGEN 11 MG/DL (9-23); CALCIUM LEVEL 8.4 MG/DL (8.5-10.1); CARBON DIOXIDE LEVEL 28 MMOL/L (20-31); CHLORIDE LEVEL 100 MMOL/L (98-107); CREATININE FOR GFR 0.61 MG/DL (0.70-1.30); GLOMERULAR FILTRATION RATE > 60.0 (>60); GLUCOSE, FASTING 103 MG/DL (60-100); MAGNESIUM LEVEL 1.8 MG/DL (1.8-2.4); POTASSIUM SERUM 4.5 MMOL/L (3.5-5.1); SODIUM LEVEL 135 MMOL/L (136-145)
[2022-07-28] MEDS: ENOXAPARIN 80MG/0.8ML SYRINGE (J1650 PER 10MG) SC SCH ×2 (10:01→20:09)
[2022-07-28] MEDS: MUPIROCIN 2% OINT 22 GM TUBE TOP SCH ×2 (10:02→20:13)
[2022-07-28] MEDS: MAGNESIUM OXIDE 400MG TAB (MAG-OX) PO SCH (10:02)
[2022-07-28] MEDS: MORPHINE 15 MG SA TAB PO SCH ×2 (10:02→20:12)
[2022-07-29] MEDS: oxyCODONE 5MG TAB PO PRN ×3 (01:21→17:38)
[2022-07-29] MEDS: VANCOMYCIN HCL 1,000 MG, VIAL MATE ADAPTER 1 EACH in D5W 250 ML IV SCH ×3 (04:06→20:18)
[2022-07-29 04:26] LABS: BASO # 0.1 10^3/uL (0.0-0.2); BASO % 0.5 % (0.0-1.0); EOS # 0.3 10^3/uL (0.0-0.5); EOS % 2.2 % (0.0-3.0); HEMATOCRIT 38.7 % (42.0-52.0); HEMOGLOBIN 11.8 g/dl (13.5-17.5); LYMPH % 20.8 % (24.0-44.0); MEAN CORPUSCULAR HEMOGLOBIN 26.1 pg (27.0-33.0); MEAN CORPUSCULAR HGB CONC 30.5 g/dl (32.0-36.5); MEAN CORPUSCULAR VOLUME 85.6 fl (80.0-96.0); MONO # 0.8 10^3/uL (0.0-0.8); MONO % 5.6 % (2.0-8.0); NEUTROPHILS % 70.1 % (36.0-66.0); PLATELET COUNT, AUTOMATED 492 10^3/uL (150-450); RED BLOOD COUNT 4.52 10^6/uL (4.30-6.10); WHITE BLOOD COUNT 14.2 10^3/uL (4.0-10.0)
[2022-07-29 04:46] LABS: BLOOD UREA NITROGEN 12 MG/DL (9-23); CALCIUM LEVEL 8.2 MG/DL (8.5-10.1); CARBON DIOXIDE LEVEL 26 MMOL/L (20-31); CHLORIDE LEVEL 98 MMOL/L (98-107); CREATININE FOR GFR 0.76 MG/DL (0.70-1.30); GLOMERULAR FILTRATION RATE > 60.0 (>60); GLUCOSE, FASTING 110 MG/DL (60-100); MAGNESIUM LEVEL 1.8 MG/DL (1.8-2.4); POTASSIUM SERUM 4.3 MMOL/L (3.5-5.1); SODIUM LEVEL 133 MMOL/L (136-145)
[2022-07-29 04:51] VITALS: BP 122/70; TEMP 102.8; O2SAT 96
[2022-07-29] MEDS ORDERED: MORPHINE 2 MG/ML 1ML VIAL IV ONE (05:00)
[2022-07-29] MEDS: SODIUM CHLORIDE 0.9% INJ 10 ML SYR IV SCH ×2 (05:45→17:39)
[2022-07-29] MEDS ORDERED: ACETAMINOPHEN 1000MG 100ML IV BAG IV ONE (06:00)
[2022-07-29 06:31] VITALS: TEMP 101.1
[2022-07-29] MEDS: NS 1,000 ML IV SCH ×2 (07:39→17:36)
[2022-07-29 08:01] LABS: AMORPHOUS SEDIMENT SMALL (NEGATIVE); APPEARANCE, URINE HAZY (CLEAR); BACTERIA, URINE AUTO NEGATIVE (NEGATIVE); BILIRUBIN, URINE AUTO NEGATIVE (NEGATIVE); BLOOD, URINE BLOOD NEGATIVE (NEGATIVE); COLOR, URINE YELLOW (YELLOW); GLUCOSE, URINE (UA) AUTO NEGATIVE (NEGATIVE); KETONE, URINE AUTO NEGATIVE (NEGATIVE); LEUKOCYTE ESTERASE, URINE AUTO NEGATIVE (NEGATIVE); MUCUS, URINE SMALL (NEGATIVE); NITRITE, URINE AUTO NEGATIVE (NEGATIVE); PROTEIN, URINE AUTO NEGATIVE (NEGATIVE); RBC, URINE AUTO 1 /HPF (0-3); SPECIFIC GRAVITY URINE AUTO 1.019 (1.002-1.035); SQUAMOUS EPITHELIAL CELL UR AU 0 /HPF (0-6); WBC, URINE AUTO 1 /HPF (0-3)
[2022-07-29] MEDS: MAGNESIUM OXIDE 400MG TAB (MAG-OX) PO SCH (08:47)
[2022-07-29] MEDS: MORPHINE 15 MG SA TAB PO SCH ×2 (08:48→20:22)
[2022-07-29] MEDS: MUPIROCIN 2% OINT 22 GM TUBE TOP SCH ×2 (09:00→20:22)
[2022-07-29] MEDS: ENOXAPARIN 80MG/0.8ML SYRINGE (J1650 PER 10MG) SC SCH ×2 (09:00→20:19)
[2022-07-29 16:15] LABS: ERYTHROCYTE SEDIMENTATION RATE > 130 mm/hr (0-15)
[2022-07-29] MEDS ORDERED: PROHANCE 279.3MG/ML 15ML VIAL As Ordered ONE (19:11)
[2022-07-29] MEDS ORDERED: PROHANCE 279.3MG/ML 5ML VIAL As Ordered ONE (19:11)
[2022-07-29 20:29] VITALS: BP 122/71
[2022-07-30] MEDS: oxyCODONE 5MG TAB PO PRN ×2 (00:12→02:33)
[2022-07-30 01:07] VITALS: TEMP 102.7; O2SAT 21
[2022-07-30] MEDS ORDERED: ACETAMINOPHEN 1000MG 100ML IV BAG IV ONE (02:00)
[2022-07-30 02:47] VITALS: BP 108/61; TEMP 99.8; O2SAT 95
[2022-07-30] MEDS: NS 1,000 ML IV SCH (03:11)
== END 2022-07-30 04:23 | disposition short-term general hospital (02) | DRG 317 ==
LOC: M ED 13:34 → EEVIPCON 22:02 → M ED INP 22:02 → M PCU 07-19 14:59 → M MSPAV 07-23 21:36
PROVIDERS: ADMIT Internal Medicine; ATTEND Internal Medicine
PROC: 0S993ZX Drainage of Right Hip Joint, Percutaneous Approach, Diagnostic (ICD-10-PCS; principal; 2022-07-19 14:00)
PROC: B246ZZZ Ultrasonography of Right and Left Heart (ICD-10-PCS; 2022-07-20)
PROC: 0MDL0ZZ Extraction of Right Hip Bursa and Ligament, Open Approach (ICD-10-PCS; 2022-07-21)
PROC: 02HV33Z Insertion of Infusion Device into Superior Vena Cava, Percutaneous Approach (ICD-10-PCS; 2022-07-25)
DX: M00.851 Arthritis due to other bacteria, right hip (principal); I74.3 Embolism and thrombosis of arteries of the lower extremities; I82.401 Acute embolism and thrombosis of unspecified deep veins of right lower extremity; M86.151 Other acute osteomyelitis, right femur; A49.02 Methicillin resistant Staphylococcus aureus infection, unspecified site; E83.42 Hypomagnesemia; D64.9 Anemia, unspecified; B19.20 Unspecified viral hepatitis C without hepatic coma; M19.90 Unspecified osteoarthritis, unspecified site; L02.511 Cutaneous abscess of right hand; M16.11 Unilateral primary osteoarthritis, right hip; F15.90 Other stimulant use, unspecified, uncomplicated; Z20.822 Contact with and (suspected) exposure to COVID-19; Z79.899 Other long term (current) drug therapy

== ENCOUNTER 2022-08-03 12:08 | Inpatient (IN) | payer OTHER ==
[~2022-08-03] VITALS: Ht 182.9 cm; Wt 82.0 kg
[2022-08-03 16:00] VITALS: BP 123/69; TEMP 98.1; O2SAT 99
[2022-08-03] MEDS ORDERED: PERCOCET 5MG/325MG TAB PO PRN ×2 (16:15)
[2022-08-03] MEDS ORDERED: NS 1,000 ML IV ONE (16:15)
[2022-08-03] MEDS: MORPHINE 10 MG/ML 1ML VIAL IV PRN ×3 (16:30→23:40)
[2022-08-03] MEDS ORDERED: HYDR-3363 PO (17:30)
[2022-08-03] MEDS ORDERED: ACET1TAB55 PO (17:30)
[2022-08-03] MEDS ORDERED: NARC1SPR NARES (17:30)
[2022-08-03] MEDS ORDERED: DOCU100C16 PO (17:30)
[2022-08-03] MEDS ORDERED: VANC1PLA6 IV (17:30)
[2022-08-03] MEDS ORDERED: SENN-186 PO (17:30)
[2022-08-03] MEDS ORDERED: ENOX80IN3 SC (17:30)
[2022-08-03] MEDS ORDERED: MELA3TAB30 PO (17:30)
[2022-08-03] MEDS ORDERED: MILKSUS3 PO (17:30)
[2022-08-03] MEDS ORDERED: METH-1164 PO (17:30)
[2022-08-03] MEDS ORDERED: VITMTA PO (17:30)
[2022-08-03] MEDS ORDERED: OXYC-517 PO (17:30)
[2022-08-03] MEDS ORDERED: HOME MED LIST COMPLETE! XX SCH (17:30)
[2022-08-03] MEDS ORDERED: MIRA3350 PO (17:30)
[2022-08-03 17:50] LABS: BASO % 0.1 % (0.0-1.0); EOS # 0.4 10^3/uL (0.0-0.5); EOS % 6.2 % (0.0-3.0); HEMATOCRIT 23.5 % (42.0-52.0); HEMOGLOBIN 7.2 g/dl (13.5-17.5); LYMPH % 44.5 % (24.0-44.0); MEAN CORPUSCULAR HEMOGLOBIN 26.4 pg (27.0-33.0); MEAN CORPUSCULAR HGB CONC 30.6 g/dl (32.0-36.5); MEAN CORPUSCULAR VOLUME 86.1 fl (80.0-96.0); MONO # 0.7 10^3/uL (0.0-0.8); MONO % 10.8 % (2.0-8.0); NEUTROPHILS # 2.6 10^3/uL (1.5-8.5); NEUTROPHILS % 37.5 % (36.0-66.0); PLATELET COUNT, AUTOMATED 416 10^3/uL (150-450); RED BLOOD COUNT 2.73 10^6/uL (4.30-6.10); WHITE BLOOD COUNT 6.8 10^3/uL (4.0-10.0)
[2022-08-03 17:58] LABS: ERYTHROCYTE SEDIMENTATION RATE 80 mm/hr (0-15)
[2022-08-03] MEDS ORDERED: oxyCODONE 5MG TAB PO PRN (18:10)
[2022-08-03 18:22] LABS: ALBUMIN 1.9 G/DL (3.2-5.2); ALKALINE PHOSPHATASE 144 U/L (46-116); ALT/SGPT 75 U/L (7.0-40); AST/SGOT 64 U/L (<34); BILIRUBIN,TOTAL 0.4 MG/DL (0.3-1.2); BLOOD UREA NITROGEN 10 MG/DL (9-23); CALCIUM LEVEL 7.5 MG/DL (8.5-10.1); CARBON DIOXIDE LEVEL 29 MMOL/L (20-31); CHLORIDE LEVEL 101 MMOL/L (98-107); CREATININE FOR GFR 0.66 MG/DL (0.70-1.30); GLOMERULAR FILTRATION RATE > 60.0 (>60); GLUCOSE, FASTING 92 MG/DL (60-100); POTASSIUM SERUM 4.4 MMOL/L (3.5-5.1); SODIUM LEVEL 135 MMOL/L (136-145); TOTAL PROTEIN 5.8 G/DL (5.7-8.2)
[2022-08-03] MEDS: SCOPOLAMINE 1MG TRANSDERMAL PATCH TOP SCH ×2 (20:00→20:08)
[2022-08-03] MEDS: VANCOMYCIN HCL 1,000 MG, VIAL MATE ADAPTER 1 EACH in D5W 250 ML IV SCH (20:08)
[2022-08-03] MEDS: ENOXAPARIN 80MG/0.8ML SYRINGE (J1650 PER 10MG) SC SCH (20:08)
[2022-08-03 21:04] VITALS: BP 119/63; TEMP 97.3; O2SAT 96
[2022-08-04] MEDS: VANCOMYCIN HCL 1,000 MG, VIAL MATE ADAPTER 1 EACH in D5W 250 ML IV SCH ×3 (05:05→19:58)
[2022-08-04] MEDS: SODIUM CHLORIDE 0.9% INJ 10 ML SYR IV SCH ×2 (05:06→17:47)
[2022-08-04] MEDS: MORPHINE 10 MG/ML 1ML VIAL IV PRN ×4 (05:11→19:57)
[2022-08-04 07:06] LABS: BASO % 0.1 % (0.0-1.0); EOS # 0.3 10^3/uL (0.0-0.5); EOS % 4.8 % (0.0-3.0); HEMATOCRIT 21.9 % (42.0-52.0); HEMOGLOBIN 6.8 g/dl (13.5-17.5); LYMPH % 29.2 % (24.0-44.0); MEAN CORPUSCULAR HEMOGLOBIN 26.2 pg (27.0-33.0); MEAN CORPUSCULAR HGB CONC 31.1 g/dl (32.0-36.5); MEAN CORPUSCULAR VOLUME 84.2 fl (80.0-96.0); MONO # 0.6 10^3/uL (0.0-0.8); MONO % 9.2 % (2.0-8.0); NEUTROPHILS # 3.9 10^3/uL (1.5-8.5); PLATELET COUNT, AUTOMATED 398 10^3/uL (150-450); WHITE BLOOD COUNT 6.9 10^3/uL (4.0-10.0)
[2022-08-04 07:09] LABS: BLOOD UREA NITROGEN 10 MG/DL (9-23); CALCIUM LEVEL 7.5 MG/DL (8.5-10.1); CARBON DIOXIDE LEVEL 27 MMOL/L (20-31); CHLORIDE LEVEL 99 MMOL/L (98-107); CREATININE FOR GFR 0.62 MG/DL (0.70-1.30); GLOMERULAR FILTRATION RATE > 60.0 (>60); GLUCOSE, FASTING 109 MG/DL (60-100); POTASSIUM SERUM 4.6 MMOL/L (3.5-5.1); SODIUM LEVEL 131 MMOL/L (136-145)
[2022-08-04] MEDS ORDERED: KETOROLAC 30 MG/ML 1ML VIAL IV ONE ×2 (07:45→21:00)
[2022-08-04] MEDS ORDERED: MORPHINE 10 MG/ML 1ML VIAL IV ONE (07:45)
[2022-08-04] MEDS ORDERED: NS 1,000 ML IV SCH (08:00)
[2022-08-04] MEDS ORDERED: oxyCODONE 5MG TAB PO ONE (08:15)
[2022-08-04 08:24] LABS: HEMATOCRIT 21.7 % (42.0-52.0)
[2022-08-04 08:32] LABS: HEMOGLOBIN 6.8 g/dl (13.5-17.5)
[2022-08-04 08:54] LABS: PERCENT SATURATION 4.9 % (19.7-50.0)
[2022-08-04 08:57] LABS: FERRITIN 216.9 NG/ML (10.5-307.3)
[2022-08-04] MEDS: ASCORBIC ACID 500 MG TAB PO SCH ×2 (09:14→17:46)
[2022-08-04] MEDS: FERROUS SULFATE 325MG TAB PO SCH ×2 (09:14→19:57)
[2022-08-04] MEDS: ENOXAPARIN 80MG/0.8ML SYRINGE (J1650 PER 10MG) SC SCH ×4 (10:35→21:00)
[2022-08-04 13:11] LABS: HEMATOCRIT 22.5 % (42.0-52.0)
[2022-08-04 14:00] VITALS: BP 108/61; TEMP 97.7; O2SAT 99
[2022-08-04] MEDS: oxyCODONE 5MG TAB PO PRN ×2 (16:25→21:56)
[2022-08-04 19:39] LABS: HEMATOCRIT 21.6 % (42.0-52.0)
[2022-08-04 19:45] LABS: HEMOGLOBIN 6.7 g/dl (13.5-17.5)
[2022-08-04] MEDS: ACETAMINOPHEN TAB 650MG DOSE (2X325MG) PO PRN (19:56)
[2022-08-04] MEDS ORDERED: NS 500 ML IV ONE (20:35)
[2022-08-04 21:01] VITALS: BP 115/66; TEMP 102.2; O2SAT 99
[2022-08-05] VITALS (20 sets, daily range): BP systolic 90–114; BP diastolic 50–67; TEMP 97–102.8; O2SAT 95–100
[2022-08-05] MEDS: MORPHINE 10 MG/ML 1ML VIAL IV PRN ×5 (00:01→21:14)
[2022-08-05] MEDS: SODIUM CHLORIDE 0.9% INJ 10 ML SYR IV PRN (01:54)
[2022-08-05 02:11] LABS: HEMATOCRIT 20.5 % (42.0-52.0); HEMOGLOBIN 6.3 g/dl (13.5-17.5)
[2022-08-05] MEDS: VANCOMYCIN HCL 1,000 MG, VIAL MATE ADAPTER 1 EACH in D5W 250 ML IV SCH ×3 (05:59→19:37)
[2022-08-05] MEDS: SODIUM CHLORIDE 0.9% INJ 10 ML SYR IV SCH ×2 (05:59→17:02)
[2022-08-05] MEDS: oxyCODONE 5MG TAB PO PRN ×4 (06:02→23:28)
[2022-08-05 06:33] LABS: BASO % 0.4 % (0.0-1.0); EOS # 0.5 10^3/uL (0.0-0.5); EOS % 10.2 % (0.0-3.0); HEMATOCRIT 24.5 % (42.0-52.0); HEMOGLOBIN 7.6 g/dl (13.5-17.5); LYMPH # 1.8 10^3/uL (1.5-5.0); LYMPH % 34.4 % (24.0-44.0); MEAN CORPUSCULAR HEMOGLOBIN 26.5 pg (27.0-33.0); MEAN CORPUSCULAR VOLUME 85.4 fl (80.0-96.0); MONO # 0.7 10^3/uL (0.0-0.8); MONO % 13.1 % (2.0-8.0); NEUTROPHILS # 2.1 10^3/uL (1.5-8.5); NEUTROPHILS % 40.1 % (36.0-66.0); PLATELET COUNT, AUTOMATED 379 10^3/uL (150-450); RED BLOOD COUNT 2.87 10^6/uL (4.30-6.10); WHITE BLOOD COUNT 5.1 10^3/uL (4.0-10.0)
[2022-08-05 06:46] LABS: BLOOD UREA NITROGEN 10 MG/DL (9-23); CALCIUM LEVEL 7.8 MG/DL (8.5-10.1); CARBON DIOXIDE LEVEL 27 MMOL/L (20-31); CHLORIDE LEVEL 105 MMOL/L (98-107); CREATININE FOR GFR 0.54 MG/DL (0.70-1.30); GLOMERULAR FILTRATION RATE > 60.0 (>60); GLUCOSE, FASTING 132 MG/DL (60-100); POTASSIUM SERUM 4.1 MMOL/L (3.5-5.1); SODIUM LEVEL 136 MMOL/L (136-145)
[2022-08-05] MEDS ORDERED: NS 1,000 ML IV SCH (08:00)
[2022-08-05] MEDS: MIDODRINE 5 MG TAB PO SCH ×3 (08:10→17:01)
[2022-08-05] MEDS: ASCORBIC ACID 500 MG TAB PO SCH ×2 (08:10→17:01)
[2022-08-05] MEDS: FERROUS SULFATE 325MG TAB PO SCH ×2 (08:10→19:37)
[2022-08-05 08:29] LABS: HEMATOCRIT 25.3 % (42.0-52.0); HEMOGLOBIN 7.9 g/dl (13.5-17.5)
[2022-08-05] MEDS ORDERED: HYDROMORPHONE HCL 0.5 MG/ 0.5 ML SYRINGE IV ONE ×2 (09:50→12:35)
[2022-08-05] MEDS: NS 1,000 ML IV SCH ×4 (10:00→21:08)
[2022-08-05] MEDS: ACETAMINOPHEN TAB 650MG DOSE (2X325MG) PO PRN (11:40)
[2022-08-05] MEDS ORDERED: KETOROLAC 30 MG/ML 1ML VIAL IV ONE (13:25)
[2022-08-05 14:40] LABS: HEMATOCRIT 26.2 % (42.0-52.0); HEMOGLOBIN 8.4 g/dl (13.5-17.5)
[2022-08-05] MEDS: PIPERACILLIN/TAZOBACTAM SOD 4.5 GM in D5W MINI-BAG PLUS 50 ML IV SCH ×2 (15:07→21:08)
[2022-08-06] MEDS: ACETAMINOPHEN TAB 650MG DOSE (2X325MG) PO PRN ×2 (01:17→20:14)
[2022-08-06] MEDS: SODIUM CHLORIDE 0.9% INJ 10 ML SYR IV PRN (01:18)
[2022-08-06] MEDS: MORPHINE 10 MG/ML 1ML VIAL IV PRN ×4 (01:18→22:18)
[2022-08-06] MEDS ORDERED: HYDROMORPHONE HCL 0.5 MG/ 0.5 ML SYRINGE IV ONE ×2 (03:25→10:15)
[2022-08-06] MEDS: VANCOMYCIN HCL 1,000 MG, VIAL MATE ADAPTER 1 EACH in D5W 250 ML IV SCH ×3 (03:41→20:13)
[2022-08-06] MEDS ORDERED: KETOROLAC 30 MG/ML 1ML VIAL IV ONE (03:50)
[2022-08-06] MEDS: SODIUM CHLORIDE 0.9% INJ 10 ML SYR IV SCH ×2 (03:53→18:13)
[2022-08-06 04:08] VITALS: TEMP 101.9
[2022-08-06] MEDS: PIPERACILLIN/TAZOBACTAM SOD 4.5 GM in D5W MINI-BAG PLUS 50 ML IV SCH ×3 (05:36→22:18)
[2022-08-06 06:24] VITALS: BP 90/54; TEMP 97.7; O2SAT 94
[2022-08-06 06:28] LABS: BASO % 0.6 % (0.0-1.0); EOS # 0.5 10^3/uL (0.0-0.5); EOS % 10.7 % (0.0-3.0); HEMATOCRIT 29.7 % (42.0-52.0); HEMOGLOBIN 9.2 g/dl (13.5-17.5); LYMPH # 1.5 10^3/uL (1.5-5.0); LYMPH % 31.7 % (24.0-44.0); MEAN CORPUSCULAR HEMOGLOBIN 25.9 pg (27.0-33.0); MEAN CORPUSCULAR VOLUME 83.7 fl (80.0-96.0); MONO # 0.5 10^3/uL (0.0-0.8); MONO % 9.9 % (2.0-8.0); NEUTROPHILS # 2.3 10^3/uL (1.5-8.5); NEUTROPHILS % 46.3 % (36.0-66.0); PLATELET COUNT, AUTOMATED 403 10^3/uL (150-450); RED BLOOD COUNT 3.55 10^6/uL (4.30-6.10); WHITE BLOOD COUNT 4.9 10^3/uL (4.0-10.0)
[2022-08-06 06:49] LABS: BLOOD UREA NITROGEN 7 MG/DL (9-23); CALCIUM LEVEL 7.6 MG/DL (8.5-10.1); CARBON DIOXIDE LEVEL 26 MMOL/L (20-31); CHLORIDE LEVEL 102 MMOL/L (98-107); CREATININE FOR GFR 0.66 MG/DL (0.70-1.30); GLOMERULAR FILTRATION RATE > 60.0 (>60); GLUCOSE, FASTING 108 MG/DL (60-100); POTASSIUM SERUM 4.3 MMOL/L (3.5-5.1); SODIUM LEVEL 133 MMOL/L (136-145)
[2022-08-06] MEDS: FERROUS SULFATE 325MG TAB PO SCH ×2 (09:14→20:15)
[2022-08-06] MEDS: MIDODRINE 5 MG TAB PO SCH ×3 (09:14→16:00)
[2022-08-06] MEDS: ASCORBIC ACID 500 MG TAB PO SCH ×2 (09:14→18:00)
[2022-08-06] MEDS: NS 1,000 ML IV SCH ×2 (10:15→11:19)
[2022-08-06] MEDS: oxyCODONE 5MG TAB PO PRN ×2 (12:59→20:14)
[2022-08-06 14:00] VITALS: BP 139/74; TEMP 98.8; O2SAT 94
[2022-08-06] MEDS: ONDANSETRON 4MG 2ML VIAL IV PRN (18:04)
[2022-08-06] MEDS: SCOPOLAMINE 1MG TRANSDERMAL PATCH TOP SCH (20:00)
[2022-08-06 20:08] VITALS: BP 104/62; TEMP 102.6; O2SAT 96
[2022-08-06 21:57] VITALS: TEMP 101.8
[2022-08-06] MEDS ORDERED: IBUPROFEN 600MG TAB PO ONE (23:00)
[2022-08-07 01:30] VITALS: TEMP 97.5
[2022-08-07] MEDS: oxyCODONE 5MG TAB PO PRN ×4 (03:07→20:24)
[2022-08-07] MEDS: VANCOMYCIN HCL 1,000 MG, VIAL MATE ADAPTER 1 EACH in D5W 250 ML IV SCH ×3 (04:39→20:02)
[2022-08-07 05:16] VITALS: BP 100/66; TEMP 97.2; O2SAT 97
[2022-08-07] MEDS: SODIUM CHLORIDE 0.9% INJ 10 ML SYR IV SCH ×2 (06:20→16:06)
[2022-08-07] MEDS: PIPERACILLIN/TAZOBACTAM SOD 4.5 GM in D5W MINI-BAG PLUS 50 ML IV SCH ×2 (06:20→14:33)
[2022-08-07] MEDS: MORPHINE 10 MG/ML 1ML VIAL IV PRN ×4 (06:21→22:08)
[2022-08-07 06:39] LABS: BASO % 0.9 % (0.0-1.0); EOS # 0.5 10^3/uL (0.0-0.5); EOS % 10.2 % (0.0-3.0); HEMOGLOBIN 9.4 g/dl (13.5-17.5); LYMPH # 2.3 10^3/uL (1.5-5.0); LYMPH % 49.5 % (24.0-44.0); MEAN CORPUSCULAR HEMOGLOBIN 26.3 pg (27.0-33.0); MEAN CORPUSCULAR HGB CONC 31.3 g/dl (32.0-36.5); MEAN CORPUSCULAR VOLUME 83.8 fl (80.0-96.0); MONO # 0.6 10^3/uL (0.0-0.8); MONO % 12.1 % (2.0-8.0); NEUTROPHILS # 1.2 10^3/uL (1.5-8.5); PLATELET COUNT, AUTOMATED 406 10^3/uL (150-450); RED BLOOD COUNT 3.58 10^6/uL (4.30-6.10); WHITE BLOOD COUNT 4.6 10^3/uL (4.0-10.0)
[2022-08-07 07:05] LABS: BLOOD UREA NITROGEN 6 MG/DL (9-23); CARBON DIOXIDE LEVEL 26 MMOL/L (20-31); CHLORIDE LEVEL 106 MMOL/L (98-107); CREATININE FOR GFR 0.68 MG/DL (0.70-1.30); GLOMERULAR FILTRATION RATE > 60.0 (>60); GLUCOSE, FASTING 104 MG/DL (60-100); POTASSIUM SERUM 4.1 MMOL/L (3.5-5.1); SODIUM LEVEL 138 MMOL/L (136-145)
[2022-08-07] MEDS ORDERED: MIRALAX *UNIT DOSE* 17GM PACKET PO PRN (07:45)
[2022-08-07] MEDS: ASCORBIC ACID 500 MG TAB PO SCH ×2 (08:26→17:33)
[2022-08-07] MEDS: FERROUS SULFATE 325MG TAB PO SCH ×2 (08:26→20:23)
[2022-08-07] MEDS: DOCUSATE SODIUM 100MG CAPSULE PO SCH ×2 (08:27→20:23)
[2022-08-07] MEDS: MIDODRINE 5 MG TAB PO SCH ×3 (08:27→16:06)
[2022-08-07 14:00] VITALS: BP 117/78; TEMP 99; O2SAT 98
[2022-08-07] MEDS: SENNA 8.6 MG TAB (SENOKOT) PO SCH (20:22)
[2022-08-07] MEDS: ACETAMINOPHEN TAB 650MG DOSE (2X325MG) PO PRN (20:23)
[2022-08-07 21:36] VITALS: BP 92/54; TEMP 97.5; O2SAT 94
[2022-08-07] MEDS ORDERED: KETOROLAC 30 MG/ML 1ML VIAL IV ONE (22:10)
[2022-08-07] MEDS ORDERED: NS 1,000 ML IV ONE (22:10)
[2022-08-08 01:04] VITALS: BP 98/52
[2022-08-08] MEDS: VANCOMYCIN HCL 1,000 MG, VIAL MATE ADAPTER 1 EACH in D5W 250 ML IV SCH ×3 (04:42→20:29)
[2022-08-08 05:28] VITALS: BP 100/56; TEMP 97.3; O2SAT 95
[2022-08-08] MEDS: SODIUM CHLORIDE 0.9% INJ 10 ML SYR IV SCH ×2 (05:54→17:19)
[2022-08-08 06:11] LABS: BASO % 0.6 % (0.0-1.0); EOS # 0.5 10^3/uL (0.0-0.5); EOS % 9.8 % (0.0-3.0); HEMOGLOBIN 9.5 g/dl (13.5-17.5); LYMPH # 2.3 10^3/uL (1.5-5.0); MEAN CORPUSCULAR HGB CONC 30.6 g/dl (32.0-36.5); MEAN CORPUSCULAR VOLUME 84.9 fl (80.0-96.0); MONO # 0.6 10^3/uL (0.0-0.8); NEUTROPHILS # 1.7 10^3/uL (1.5-8.5); NEUTROPHILS % 32.7 % (36.0-66.0); PLATELET COUNT, AUTOMATED 395 10^3/uL (150-450); RED BLOOD COUNT 3.65 10^6/uL (4.30-6.10); WHITE BLOOD COUNT 5.3 10^3/uL (4.0-10.0)
[2022-08-08] MEDS: MORPHINE 10 MG/ML 1ML VIAL IV PRN (06:30)
[2022-08-08 06:51] LABS: BLOOD UREA NITROGEN 6 MG/DL (9-23); CALCIUM LEVEL 7.6 MG/DL (8.5-10.1); CARBON DIOXIDE LEVEL 28 MMOL/L (20-31); CHLORIDE LEVEL 104 MMOL/L (98-107); CREATININE FOR GFR 0.63 MG/DL (0.70-1.30); GLOMERULAR FILTRATION RATE > 60.0 (>60); GLUCOSE, FASTING 115 MG/DL (60-100); POTASSIUM SERUM 4.2 MMOL/L (3.5-5.1); SODIUM LEVEL 138 MMOL/L (136-145)
[2022-08-08] MEDS: MIDODRINE 5 MG TAB PO SCH ×3 (09:03→17:18)
[2022-08-08] MEDS: LACTOBACILLUS ACIDOPHILUS CAP (BACID) PO SCH ×2 (09:03→17:18)
[2022-08-08] MEDS: DOCUSATE SODIUM 100MG CAPSULE PO SCH ×2 (09:03→20:29)
[2022-08-08] MEDS: ASCORBIC ACID 500 MG TAB PO SCH ×2 (09:03→17:18)
[2022-08-08] MEDS: NS 1,000 ML IV SCH ×2 (09:04→20:33)
[2022-08-08] MEDS: FERROUS SULFATE 325MG TAB PO SCH ×2 (09:04→20:29)
[2022-08-08] MEDS: MORPHINE 4 MG/ML 1ML VIAL IV PRN (10:57)
[2022-08-08] MEDS ORDERED: PROHANCE 279.3MG/ML 15ML VIAL As Ordered ONE (11:26)
[2022-08-08] MEDS ORDERED: PROHANCE 279.3MG/ML 5ML VIAL As Ordered ONE (11:26)
[2022-08-08] MEDS: oxyCODONE 5MG TAB PO PRN ×2 (13:16→20:32)
[2022-08-08 14:00] VITALS: BP 139/84; TEMP 99; O2SAT 100
[2022-08-08] MEDS ORDERED: LIDOCAINE VISCOUS 2% SOLN 15ML UDC As Ordered ONE (17:32)
[2022-08-08] MEDS ORDERED: CETACAINE SPRAY 5GM As Ordered ONE (17:32)
[2022-08-08] MEDS ORDERED: propofoL 200 MG/20 ML VIAL As Ordered ONE (17:53)
[2022-08-08] MEDS ORDERED: MIDAZOLAM INJ 2MG/2ML VIAL As Ordered ONE (17:53)
[2022-08-08] MEDS ORDERED: LIDOCAINE 2% 100MG/5ML SDV (FOR ANES.) As Ordered ONE (17:53)
[2022-08-08] MEDS ORDERED: fentaNYL 100 MCG/2 ML INJECTION As Ordered ONE (17:53)
[2022-08-08 19:00] VITALS: BP 123/71; TEMP 98.8; O2SAT 96
[2022-08-08 19:26] VITALS: BP 133/77; TEMP 98.8; O2SAT 98
[2022-08-08] MEDS: SENNA 8.6 MG TAB (SENOKOT) PO SCH (20:29)
[2022-08-08] MEDS: ENOXAPARIN 40MG/0.4ML SYRINGE (J1650 PER 10MG) SC SCH (20:30)
[2022-08-09] MEDS: VANCOMYCIN HCL 1,000 MG, VIAL MATE ADAPTER 1 EACH in D5W 250 ML IV SCH ×3 (04:17→20:53)
[2022-08-09] MEDS: oxyCODONE 5MG TAB PO PRN ×2 (05:08→19:02)
[2022-08-09 05:12] VITALS: BP 123/73; TEMP 99.1; O2SAT 97
[2022-08-09 05:37] LABS: BASO % 0.4 % (0.0-1.0); EOS # 0.4 10^3/uL (0.0-0.5); EOS % 5.6 % (0.0-3.0); HEMATOCRIT 30.1 % (42.0-52.0); HEMOGLOBIN 9.4 g/dl (13.5-17.5); LYMPH # 2.3 10^3/uL (1.5-5.0); LYMPH % 33.7 % (24.0-44.0); MEAN CORPUSCULAR HEMOGLOBIN 26.4 pg (27.0-33.0); MEAN CORPUSCULAR HGB CONC 31.2 g/dl (32.0-36.5); MEAN CORPUSCULAR VOLUME 84.6 fl (80.0-96.0); MONO # 0.7 10^3/uL (0.0-0.8); MONO % 10.2 % (2.0-8.0); NEUTROPHILS # 3.4 10^3/uL (1.5-8.5); NEUTROPHILS % 49.5 % (36.0-66.0); PLATELET COUNT, AUTOMATED 430 10^3/uL (150-450); RED BLOOD COUNT 3.56 10^6/uL (4.30-6.10); WHITE BLOOD COUNT 6.8 10^3/uL (4.0-10.0)
[2022-08-09 06:03] LABS: BLOOD UREA NITROGEN 6 MG/DL (9-23); CALCIUM LEVEL 7.9 MG/DL (8.5-10.1); CARBON DIOXIDE LEVEL 28 MMOL/L (20-31); CHLORIDE LEVEL 103 MMOL/L (98-107); CREATININE FOR GFR 0.57 MG/DL (0.70-1.30); GLOMERULAR FILTRATION RATE > 60.0 (>60); GLUCOSE, FASTING 119 MG/DL (60-100); POTASSIUM SERUM 4.1 MMOL/L (3.5-5.1); SODIUM LEVEL 137 MMOL/L (136-145)
[2022-08-09] MEDS: SODIUM CHLORIDE 0.9% INJ 10 ML SYR IV SCH ×2 (06:19→16:08)
[2022-08-09] MEDS: NS 1,000 ML IV SCH (06:59)
[2022-08-09] MEDS: LACTOBACILLUS ACIDOPHILUS CAP (BACID) PO SCH ×2 (08:28→18:38)
[2022-08-09] MEDS: ASCORBIC ACID 500 MG TAB PO SCH ×2 (08:28→18:38)
[2022-08-09] MEDS: FERROUS SULFATE 325MG TAB PO SCH ×2 (08:28→20:54)
[2022-08-09] MEDS: DOCUSATE SODIUM 100MG CAPSULE PO SCH ×2 (08:29→20:55)
[2022-08-09] MEDS: MIDODRINE 5 MG TAB PO SCH ×3 (08:29→16:00)
[2022-08-09] MEDS: ENOXAPARIN 40MG/0.4ML SYRINGE (J1650 PER 10MG) SC SCH ×2 (08:30→20:54)
[2022-08-09] MEDS: MORPHINE 4 MG/ML 1ML VIAL IV PRN (12:54)
[2022-08-09 14:00] VITALS: BP 102/62; TEMP 98.4; O2SAT 96
[2022-08-09] MEDS ORDERED: MORPHINE 4 MG/ML 1ML VIAL IV PRN (16:30)
[2022-08-09] MEDS: SCOPOLAMINE 1MG TRANSDERMAL PATCH TOP SCH (20:00)
[2022-08-09] MEDS: SENNA 8.6 MG TAB (SENOKOT) PO SCH (20:55)
[2022-08-09 22:08] VITALS: BP 116/68; TEMP 98.2; O2SAT 95
[2022-08-09] MEDS: SODIUM CHLORIDE 0.9% INJ 10 ML SYR IV PRN (22:10)
[2022-08-10] MEDS: VANCOMYCIN HCL 1,000 MG, VIAL MATE ADAPTER 1 EACH in D5W 250 ML IV SCH ×3 (04:05→19:28)
[2022-08-10] MEDS: SODIUM CHLORIDE 0.9% INJ 10 ML SYR IV SCH ×2 (05:24→17:05)
[2022-08-10 05:32] VITALS: BP 118/72; TEMP 98.1; O2SAT 94
[2022-08-10 06:36] LABS: BASO % 0.5 % (0.0-1.0); EOS # 0.3 10^3/uL (0.0-0.5); EOS % 3.8 % (0.0-3.0); HEMATOCRIT 31.9 % (42.0-52.0); HEMOGLOBIN 9.9 g/dl (13.5-17.5); LYMPH # 1.9 10^3/uL (1.5-5.0); LYMPH % 24.8 % (24.0-44.0); MEAN CORPUSCULAR HEMOGLOBIN 26.4 pg (27.0-33.0); MEAN CORPUSCULAR VOLUME 85.1 fl (80.0-96.0); MONO # 0.6 10^3/uL (0.0-0.8); MONO % 8.2 % (2.0-8.0); NEUTROPHILS # 4.9 10^3/uL (1.5-8.5); NEUTROPHILS % 62.1 % (36.0-66.0); PLATELET COUNT, AUTOMATED 459 10^3/uL (150-450); RED BLOOD COUNT 3.75 10^6/uL (4.30-6.10); WHITE BLOOD COUNT 7.8 10^3/uL (4.0-10.0)
[2022-08-10 06:58] LABS: BLOOD UREA NITROGEN 6 MG/DL (9-23); CALCIUM LEVEL 7.9 MG/DL (8.5-10.1); CARBON DIOXIDE LEVEL 26 MMOL/L (20-31); CHLORIDE LEVEL 107 MMOL/L (98-107); CREATININE FOR GFR 0.55 MG/DL (0.70-1.30); GLOMERULAR FILTRATION RATE > 60.0 (>60); GLUCOSE, FASTING 103 MG/DL (60-100); POTASSIUM SERUM 4.3 MMOL/L (3.5-5.1); SODIUM LEVEL 140 MMOL/L (136-145)
[2022-08-10] MEDS: DOCUSATE SODIUM 100MG CAPSULE PO SCH ×2 (09:00→20:51)
[2022-08-10] MEDS: MIDODRINE 5 MG TAB PO SCH ×3 (09:08→17:05)
[2022-08-10] MEDS: LACTOBACILLUS ACIDOPHILUS CAP (BACID) PO SCH ×2 (09:08→17:05)
[2022-08-10] MEDS: ASCORBIC ACID 500 MG TAB PO SCH ×2 (09:08→17:04)
[2022-08-10] MEDS: FERROUS SULFATE 325MG TAB PO SCH ×2 (09:08→20:54)
[2022-08-10] MEDS: ENOXAPARIN 40MG/0.4ML SYRINGE (J1650 PER 10MG) SC SCH (09:09)
[2022-08-10] MEDS: oxyCODONE 5MG TAB PO PRN ×3 (09:09→21:07)
[2022-08-10 14:00] VITALS: BP 114/69; TEMP 98.2; O2SAT 97
[2022-08-10] MEDS: SENNA 8.6 MG TAB (SENOKOT) PO SCH (20:51)
[2022-08-10] MEDS ORDERED: ENOXAPARIN 40MG/0.4ML SYRINGE (J1650 PER 10MG) SC SCH (21:00)
[2022-08-10 21:07] VITALS: BP 116/69; TEMP 98.2; O2SAT 95
[2022-08-11] MEDS: VANCOMYCIN HCL 1,000 MG, VIAL MATE ADAPTER 1 EACH in D5W 250 ML IV SCH ×3 (04:36→20:44)
[2022-08-11] MEDS: oxyCODONE 5MG TAB PO PRN ×4 (04:44→23:56)
[2022-08-11] MEDS: SODIUM CHLORIDE 0.9% INJ 10 ML SYR IV SCH ×2 (05:42→17:51)
[2022-08-11 06:00] VITALS: BP 114/65; TEMP 98.1; O2SAT 95
[2022-08-11 06:10] LABS: HEMOGLOBIN 9.1 g/dl (13.5-17.5); MEAN CORPUSCULAR HEMOGLOBIN 26.5 pg (27.0-33.0); MEAN CORPUSCULAR HGB CONC 30.3 g/dl (32.0-36.5); MEAN CORPUSCULAR VOLUME 87.2 fl (80.0-96.0); PLATELET COUNT, AUTOMATED 438 10^3/uL (150-450); RED BLOOD COUNT 3.44 10^6/uL (4.30-6.10); WHITE BLOOD COUNT 6.8 10^3/uL (4.0-10.0)
[2022-08-11 08:28] LABS: ALBUMIN 2.2 G/DL (3.2-5.2); ALKALINE PHOSPHATASE 135 U/L (46-116); ALT/SGPT 43 U/L (7.0-40); AST/SGOT 31 U/L (<34); BILIRUBIN,TOTAL 0.3 MG/DL (0.3-1.2); BLOOD UREA NITROGEN 6 MG/DL (9-23); CALCIUM LEVEL 8.4 MG/DL (8.5-10.1); CARBON DIOXIDE LEVEL 25 MMOL/L (20-31); CHLORIDE LEVEL 107 MMOL/L (98-107); CREATININE FOR GFR 0.55 MG/DL (0.70-1.30); GLOMERULAR FILTRATION RATE > 60.0 (>60); GLUCOSE, FASTING 92 MG/DL (60-100); POTASSIUM SERUM 4.4 MMOL/L (3.5-5.1); SODIUM LEVEL 139 MMOL/L (136-145); TOTAL PROTEIN 6.1 G/DL (5.7-8.2)
[2022-08-11] MEDS: DOCUSATE SODIUM 100MG CAPSULE PO SCH ×2 (09:59→20:44)
[2022-08-11] MEDS: MIDODRINE 5 MG TAB PO SCH ×3 (09:59→16:03)
[2022-08-11] MEDS: ASCORBIC ACID 500 MG TAB PO SCH ×2 (09:59→17:49)
[2022-08-11] MEDS: LACTOBACILLUS ACIDOPHILUS CAP (BACID) PO SCH ×2 (09:59→17:49)
[2022-08-11] MEDS: FERROUS SULFATE 325MG TAB PO SCH ×2 (10:00→20:43)
[2022-08-11] MEDS ORDERED: ENOXAPARIN 100MG/1ML SYRINGE (J1650 PER 10MG) SC SCH (10:10)
[2022-08-11] MEDS: ENOXAPARIN 80MG/0.8ML SYRINGE (J1650 PER 10MG) SC SCH ×2 (11:17→23:53)
[2022-08-11 14:13] VITALS: BP_SYST 111; BP_SYST 95; BP_SYST 96; BP_DIAS 65; BP_DIAS 66; BP_DIAS 68
[2022-08-11] MEDS: MORPHINE 4 MG/ML 1ML VIAL IV PRN (20:43)
[2022-08-11] MEDS: SENNA 8.6 MG TAB (SENOKOT) PO SCH (20:44)
[2022-08-11 22:00] VITALS: BP 122/74; TEMP 98.4; O2SAT 94
[2022-08-12] MEDS: VANCOMYCIN HCL 1,000 MG, VIAL MATE ADAPTER 1 EACH in D5W 250 ML IV SCH ×3 (03:55→21:26)
[2022-08-12] MEDS: SODIUM CHLORIDE 0.9% INJ 10 ML SYR IV SCH ×2 (05:25→16:17)
[2022-08-12 06:00] VITALS: BP 109/67; TEMP 98.1; O2SAT 95
[2022-08-12] MEDS: DOCUSATE SODIUM 100MG CAPSULE PO SCH ×2 (09:00→21:00)
[2022-08-12] MEDS: MIDODRINE 5 MG TAB PO SCH ×3 (09:10→16:15)
[2022-08-12] MEDS: LACTOBACILLUS ACIDOPHILUS CAP (BACID) PO SCH ×2 (09:10→16:52)
[2022-08-12] MEDS: FERROUS SULFATE 325MG TAB PO SCH ×2 (09:10→21:24)
[2022-08-12] MEDS: ASCORBIC ACID 500 MG TAB PO SCH ×2 (09:10→16:52)
[2022-08-12] MEDS: oxyCODONE 5MG TAB PO PRN ×3 (09:13→21:25)
[2022-08-12 11:13] LABS: HEMATOCRIT 35.2 % (42.0-52.0); HEMOGLOBIN 10.7 g/dl (13.5-17.5); MEAN CORPUSCULAR HEMOGLOBIN 26.2 pg (27.0-33.0); MEAN CORPUSCULAR HGB CONC 30.4 g/dl (32.0-36.5); MEAN CORPUSCULAR VOLUME 86.3 fl (80.0-96.0); PLATELET COUNT, AUTOMATED 472 10^3/uL (150-450); RED BLOOD COUNT 4.08 10^6/uL (4.30-6.10); WHITE BLOOD COUNT 7.3 10^3/uL (4.0-10.0)
[2022-08-12 11:54] LABS: ALBUMIN 2.5 G/DL (3.2-5.2); ALKALINE PHOSPHATASE 142 U/L (46-116); ALT/SGPT 41 U/L (7.0-40); AST/SGOT 30 U/L (<34); BILIRUBIN,TOTAL 0.4 MG/DL (0.3-1.2); BLOOD UREA NITROGEN 7 MG/DL (9-23); CALCIUM LEVEL 8.5 MG/DL (8.5-10.1); CARBON DIOXIDE LEVEL 26 MMOL/L (20-31); CHLORIDE LEVEL 106 MMOL/L (98-107); CREATININE FOR GFR 0.55 MG/DL (0.70-1.30); GLOMERULAR FILTRATION RATE > 60.0 (>60); GLUCOSE, FASTING 93 MG/DL (60-100); POTASSIUM SERUM 4.5 MMOL/L (3.5-5.1); SODIUM LEVEL 140 MMOL/L (136-145); TOTAL PROTEIN 6.6 G/DL (5.7-8.2)
[2022-08-12] MEDS: ENOXAPARIN 80MG/0.8ML SYRINGE (J1650 PER 10MG) SC SCH (11:56)
[2022-08-12 14:30] VITALS: BP 115/74; TEMP 98.2; O2SAT 94
[2022-08-12] MEDS: SODIUM CHLORIDE 0.9% INJ 10 ML SYR IV PRN (15:14)
[2022-08-12] MEDS: SENNA 8.6 MG TAB (SENOKOT) PO SCH (21:00)
[2022-08-12] MEDS: SCOPOLAMINE 1MG TRANSDERMAL PATCH TOP SCH (21:23)
[2022-08-12 21:32] VITALS: BP 113/74; TEMP 97.9; O2SAT 94
[2022-08-13] MEDS: VANCOMYCIN HCL 1,000 MG, VIAL MATE ADAPTER 1 EACH in D5W 250 ML IV SCH ×3 (04:27→20:34)
[2022-08-13] MEDS: SODIUM CHLORIDE 0.9% INJ 10 ML SYR IV SCH ×2 (05:42→17:58)
[2022-08-13 06:00] VITALS: BP 119/76; TEMP 97.9; O2SAT 95
[2022-08-13 06:41] LABS: HEMATOCRIT 35.6 % (42.0-52.0); HEMOGLOBIN 10.7 g/dl (13.5-17.5); MEAN CORPUSCULAR HEMOGLOBIN 25.9 pg (27.0-33.0); MEAN CORPUSCULAR HGB CONC 30.1 g/dl (32.0-36.5); MEAN CORPUSCULAR VOLUME 86.2 fl (80.0-96.0); PLATELET COUNT, AUTOMATED 496 10^3/uL (150-450); RED BLOOD COUNT 4.13 10^6/uL (4.30-6.10); WHITE BLOOD COUNT 7.3 10^3/uL (4.0-10.0)
[2022-08-13 06:49] LABS: ERYTHROCYTE SEDIMENTATION RATE 98 mm/hr (0-15)
[2022-08-13 07:16] LABS: ALBUMIN 2.4 G/DL (3.2-5.2); ALKALINE PHOSPHATASE 135 U/L (46-116); ALT/SGPT 37 U/L (7.0-40); AST/SGOT 26 U/L (<34); BILIRUBIN,TOTAL 0.4 MG/DL (0.3-1.2); BLOOD UREA NITROGEN 7 MG/DL (9-23); CALCIUM LEVEL 8.3 MG/DL (8.5-10.1); CARBON DIOXIDE LEVEL 28 MMOL/L (20-31); CHLORIDE LEVEL 104 MMOL/L (98-107); CREATININE FOR GFR 0.57 MG/DL (0.70-1.30); GLOMERULAR FILTRATION RATE > 60.0 (>60); GLUCOSE, FASTING 95 MG/DL (60-100); POTASSIUM SERUM 4.2 MMOL/L (3.5-5.1); SODIUM LEVEL 138 MMOL/L (136-145); TOTAL PROTEIN 6.5 G/DL (5.7-8.2)
[2022-08-13] MEDS: ASCORBIC ACID 500 MG TAB PO SCH ×2 (07:51→17:59)
[2022-08-13] MEDS: FERROUS SULFATE 325MG TAB PO SCH ×2 (07:51→20:34)
[2022-08-13] MEDS: MIDODRINE 5 MG TAB PO SCH ×3 (07:51→15:44)
[2022-08-13] MEDS: LACTOBACILLUS ACIDOPHILUS CAP (BACID) PO SCH ×2 (07:51→17:59)
[2022-08-13] MEDS: oxyCODONE 5MG TAB PO PRN ×2 (07:52→22:09)
[2022-08-13] MEDS: DOCUSATE SODIUM 100MG CAPSULE PO SCH ×2 (07:53→20:35)
[2022-08-13] MEDS: SODIUM CHLORIDE 0.9% INJ 10 ML SYR IV PRN (07:55)
[2022-08-13] MEDS: MORPHINE 4 MG/ML 1ML VIAL IV PRN (11:27)
[2022-08-13 14:00] VITALS: BP 121/75; TEMP 98.4; O2SAT 96
[2022-08-13] MEDS ORDERED: LIDOCAINE 1% MDV 20ML VIAL As Ordered ONE (15:55)
[2022-08-13] MEDS: MORPHINE 2 MG/ML 1ML VIAL IV PRN (16:46)
[2022-08-13] MEDS: SENNA 8.6 MG TAB (SENOKOT) PO SCH (20:35)
[2022-08-13 22:01] VITALS: BP 118/74; TEMP 98.1; O2SAT 92
[2022-08-13] MEDS ORDERED: carisoprodoL 350 MG TAB PO ONE (23:55)
[2022-08-14] MEDS: RAMELTEON 8 MG TAB (ROZEREM) PO PRN ×2 (00:07→22:32)
[2022-08-14] MEDS: VANCOMYCIN HCL 1,000 MG, VIAL MATE ADAPTER 1 EACH in D5W 250 ML IV SCH ×3 (04:15→20:21)
[2022-08-14] MEDS: SODIUM CHLORIDE 0.9% INJ 10 ML SYR IV SCH ×2 (05:32→18:13)
[2022-08-14 05:55] LABS: HEMATOCRIT 33.4 % (42.0-52.0); HEMOGLOBIN 10.2 g/dl (13.5-17.5); MEAN CORPUSCULAR HEMOGLOBIN 26.4 pg (27.0-33.0); MEAN CORPUSCULAR HGB CONC 30.5 g/dl (32.0-36.5); MEAN CORPUSCULAR VOLUME 86.5 fl (80.0-96.0); PLATELET COUNT, AUTOMATED 435 10^3/uL (150-450); RED BLOOD COUNT 3.86 10^6/uL (4.30-6.10); WHITE BLOOD COUNT 7.2 10^3/uL (4.0-10.0)
[2022-08-14 06:24] VITALS: BP 111/69; TEMP 97.9; O2SAT 90
[2022-08-14 06:24] LABS: ALBUMIN 2.4 G/DL (3.2-5.2); ALKALINE PHOSPHATASE 137 U/L (46-116); ALT/SGPT 34 U/L (7.0-40); AST/SGOT 28 U/L (<34); BILIRUBIN,TOTAL 0.3 MG/DL (0.3-1.2); BLOOD UREA NITROGEN 10 MG/DL (9-23); CALCIUM LEVEL 8.7 MG/DL (8.5-10.1); CARBON DIOXIDE LEVEL 27 MMOL/L (20-31); CHLORIDE LEVEL 104 MMOL/L (98-107); CREATININE FOR GFR 0.57 MG/DL (0.70-1.30); GLOMERULAR FILTRATION RATE > 60.0 (>60); GLUCOSE, FASTING 118 MG/DL (60-100); POTASSIUM SERUM 3.9 MMOL/L (3.5-5.1); SODIUM LEVEL 137 MMOL/L (136-145); TOTAL PROTEIN 6.2 G/DL (5.7-8.2)
[2022-08-14] MEDS: MORPHINE 2 MG/ML 1ML VIAL IV PRN ×2 (08:08→22:39)
[2022-08-14] MEDS: LACTOBACILLUS ACIDOPHILUS CAP (BACID) PO SCH ×2 (09:21→18:11)
[2022-08-14] MEDS: FERROUS SULFATE 325MG TAB PO SCH ×2 (09:22→20:22)
[2022-08-14] MEDS: DOCUSATE SODIUM 100MG CAPSULE PO SCH ×2 (09:22→20:22)
[2022-08-14] MEDS: ASCORBIC ACID 500 MG TAB PO SCH ×2 (09:22→18:11)
[2022-08-14] MEDS: oxyCODONE 5MG TAB PO PRN ×3 (09:51→20:22)
[2022-08-14] MEDS ORDERED: LIDOCAINE 1% MDV 20ML VIAL As Ordered ONE (10:37)
[2022-08-14 14:00] VITALS: BP 106/65; TEMP 98.1; O2SAT 94
[2022-08-14] MEDS: SODIUM CHLORIDE 0.9% INJ 10 ML SYR IV PRN (15:36)
[2022-08-14] MEDS: SENNA 8.6 MG TAB (SENOKOT) PO SCH (20:22)
[2022-08-14 21:01] VITALS: BP 120/71; TEMP 98.6; O2SAT 91
[2022-08-15] MEDS: VANCOMYCIN HCL 1,000 MG, VIAL MATE ADAPTER 1 EACH in D5W 250 ML IV SCH ×3 (03:54→19:40)
[2022-08-15] MEDS: oxyCODONE 5MG TAB PO PRN ×4 (04:19→21:48)
[2022-08-15] MEDS: SODIUM CHLORIDE 0.9% INJ 10 ML SYR IV SCH ×2 (05:38→17:39)
[2022-08-15 06:13] LABS: HEMATOCRIT 34.9 % (42.0-52.0); HEMOGLOBIN 10.5 g/dl (13.5-17.5); MEAN CORPUSCULAR HEMOGLOBIN 26.2 pg (27.0-33.0); MEAN CORPUSCULAR HGB CONC 30.1 g/dl (32.0-36.5); PLATELET COUNT, AUTOMATED 436 10^3/uL (150-450); RED BLOOD COUNT 4.01 10^6/uL (4.30-6.10); WHITE BLOOD COUNT 7.1 10^3/uL (4.0-10.0)
[2022-08-15 06:36] VITALS: BP 102/62; TEMP 97.6; O2SAT 92
[2022-08-15 06:50] LABS: ALBUMIN 2.6 G/DL (3.2-5.2); ALKALINE PHOSPHATASE 142 U/L (46-116); ALT/SGPT 34 U/L (7.0-40); AST/SGOT 26 U/L (<34); BILIRUBIN,TOTAL 0.3 MG/DL (0.3-1.2); BLOOD UREA NITROGEN 9 MG/DL (9-23); CALCIUM LEVEL 8.9 MG/DL (8.5-10.1); CARBON DIOXIDE LEVEL 28 MMOL/L (20-31); CHLORIDE LEVEL 104 MMOL/L (98-107); CREATININE FOR GFR 0.61 MG/DL (0.70-1.30); GLOMERULAR FILTRATION RATE > 60.0 (>60); GLUCOSE, FASTING 95 MG/DL (60-100); POTASSIUM SERUM 4.4 MMOL/L (3.5-5.1); SODIUM LEVEL 138 MMOL/L (136-145); TOTAL PROTEIN 6.4 G/DL (5.7-8.2)
[2022-08-15] MEDS: FERROUS SULFATE 325MG TAB PO SCH ×2 (08:56→19:40)
[2022-08-15] MEDS: ASCORBIC ACID 500 MG TAB PO SCH ×2 (08:56→17:39)
[2022-08-15] MEDS: DOCUSATE SODIUM 100MG CAPSULE PO SCH ×3 (08:56→21:00)
[2022-08-15] MEDS: LACTOBACILLUS ACIDOPHILUS CAP (BACID) PO SCH ×2 (08:56→17:39)
[2022-08-15] MEDS: SODIUM CHLORIDE 0.9% INJ 10 ML SYR IV PRN (12:37)
[2022-08-15 14:00] VITALS: BP 118/69; TEMP 97.9; O2SAT 97
[2022-08-15] MEDS: MORPHINE 2 MG/ML 1ML VIAL IV PRN (19:40)
[2022-08-15] MEDS: SENNA 8.6 MG TAB (SENOKOT) PO SCH ×2 (19:40→21:00)
[2022-08-15] MEDS: SCOPOLAMINE 1MG TRANSDERMAL PATCH TOP SCH (19:41)
[2022-08-15 21:44] VITALS: BP 111/67; TEMP 98.6; O2SAT 96
[2022-08-15] MEDS: RAMELTEON 8 MG TAB (ROZEREM) PO PRN (21:47)
[2022-08-16] MEDS: oxyCODONE 5MG TAB PO PRN ×5 (01:37→23:05)
[2022-08-16] MEDS: VANCOMYCIN HCL 1,000 MG, VIAL MATE ADAPTER 1 EACH in D5W 250 ML IV SCH ×3 (04:20→21:03)
[2022-08-16] MEDS: SODIUM CHLORIDE 0.9% INJ 10 ML SYR IV SCH ×2 (06:01→18:17)
[2022-08-16 06:09] LABS: HEMATOCRIT 34.7 % (42.0-52.0); HEMOGLOBIN 10.6 g/dl (13.5-17.5); MEAN CORPUSCULAR HEMOGLOBIN 26.4 pg (27.0-33.0); MEAN CORPUSCULAR HGB CONC 30.5 g/dl (32.0-36.5); MEAN CORPUSCULAR VOLUME 86.5 fl (80.0-96.0); PLATELET COUNT, AUTOMATED 414 10^3/uL (150-450); RED BLOOD COUNT 4.01 10^6/uL (4.30-6.10); WHITE BLOOD COUNT 6.5 10^3/uL (4.0-10.0)
[2022-08-16 06:19] VITALS: BP 106/64; TEMP 97.9; O2SAT 97
[2022-08-16 06:35] LABS: ALBUMIN 2.7 G/DL (3.2-5.2); ALKALINE PHOSPHATASE 147 U/L (46-116); ALT/SGPT 31 U/L (7.0-40); AST/SGOT 29 U/L (<34); BILIRUBIN,TOTAL 0.4 MG/DL (0.3-1.2); BLOOD UREA NITROGEN 6 MG/DL (9-23); CALCIUM LEVEL 8.7 MG/DL (8.5-10.1); CARBON DIOXIDE LEVEL 30 MMOL/L (20-31); CHLORIDE LEVEL 103 MMOL/L (98-107); CREATININE FOR GFR 0.61 MG/DL (0.70-1.30); GLOMERULAR FILTRATION RATE > 60.0 (>60); GLUCOSE, FASTING 94 MG/DL (60-100); POTASSIUM SERUM 4.2 MMOL/L (3.5-5.1); SODIUM LEVEL 139 MMOL/L (136-145); TOTAL PROTEIN 6.5 G/DL (5.7-8.2)
[2022-08-16] MEDS: ASCORBIC ACID 500 MG TAB PO SCH ×2 (08:22→18:17)
[2022-08-16] MEDS: FERROUS SULFATE 325MG TAB PO SCH ×2 (08:22→21:03)
[2022-08-16] MEDS: LACTOBACILLUS ACIDOPHILUS CAP (BACID) PO SCH ×2 (08:22→18:17)
[2022-08-16 08:23] VITALS: BP 101/57
[2022-08-16] MEDS: DOCUSATE SODIUM 100MG CAPSULE PO SCH ×2 (08:25→21:00)
[2022-08-16] MEDS: SODIUM CHLORIDE 0.9% INJ 10 ML SYR IV PRN (13:42)
[2022-08-16] MEDS ORDERED: KETOROLAC 30 MG/ML 1ML VIAL IV ONE (20:30)
[2022-08-16] MEDS: SENNA 8.6 MG TAB (SENOKOT) PO SCH (21:00)
[2022-08-16 22:00] VITALS: BP 109/68; TEMP 98.8; O2SAT 95
[2022-08-16] MEDS: RAMELTEON 8 MG TAB (ROZEREM) PO PRN (23:02)
[2022-08-17] MEDS: VANCOMYCIN HCL 1,000 MG, VIAL MATE ADAPTER 1 EACH in D5W 250 ML IV SCH (03:53)
[2022-08-17] MEDS: oxyCODONE 5MG TAB PO PRN ×4 (03:53→19:48)
[2022-08-17 05:24] VITALS: BP 111/71; TEMP 97.9; O2SAT 97
[2022-08-17] MEDS: SODIUM CHLORIDE 0.9% INJ 10 ML SYR IV PRN ×2 (05:39→15:15)
[2022-08-17] MEDS: SODIUM CHLORIDE 0.9% INJ 10 ML SYR IV SCH ×2 (05:39→18:00)
[2022-08-17 08:38] LABS: HEMOGLOBIN 11.3 g/dl (13.5-17.5); MEAN CORPUSCULAR HEMOGLOBIN 26.8 pg (27.0-33.0); MEAN CORPUSCULAR HGB CONC 30.5 g/dl (32.0-36.5); MEAN CORPUSCULAR VOLUME 87.7 fl (80.0-96.0); PLATELET COUNT, AUTOMATED 375 10^3/uL (150-450); RED BLOOD COUNT 4.22 10^6/uL (4.30-6.10); WHITE BLOOD COUNT 6.2 10^3/uL (4.0-10.0)
[2022-08-17] MEDS: LACTOBACILLUS ACIDOPHILUS CAP (BACID) PO SCH ×2 (08:47→19:49)
[2022-08-17] MEDS: ASCORBIC ACID 500 MG TAB PO SCH ×2 (08:47→19:49)
[2022-08-17] MEDS: FERROUS SULFATE 325MG TAB PO SCH ×2 (08:47→19:50)
[2022-08-17] MEDS: DOCUSATE SODIUM 100MG CAPSULE PO SCH ×2 (08:48→19:50)
[2022-08-17 09:13] LABS: ALBUMIN 2.8 G/DL (3.2-5.2); ALKALINE PHOSPHATASE 140 U/L (46-116); ALT/SGPT 30 U/L (7.0-40); AST/SGOT 29 U/L (<34); BILIRUBIN,TOTAL 0.5 MG/DL (0.3-1.2); BLOOD UREA NITROGEN 12 MG/DL (9-23); CALCIUM LEVEL 8.9 MG/DL (8.5-10.1); CARBON DIOXIDE LEVEL 31 MMOL/L (20-31); CHLORIDE LEVEL 102 MMOL/L (98-107); CREATININE FOR GFR 0.64 MG/DL (0.70-1.30); GLOMERULAR FILTRATION RATE > 60.0 (>60); GLUCOSE, FASTING 91 MG/DL (60-100); POTASSIUM SERUM 4.4 MMOL/L (3.5-5.1); SODIUM LEVEL 138 MMOL/L (136-145); TOTAL PROTEIN 6.4 G/DL (5.7-8.2)
[2022-08-17] MEDS: VANCOMYCIN HCL 750 MG, VIAL MATE ADAPTER 1 EACH in D5W 250 ML IV SCH ×2 (13:54→21:37)
[2022-08-17] MEDS: GABAPENTIN 300 MG CAP PO SCH (19:49)
[2022-08-17] MEDS: IBUPROFEN 600MG TAB PO SCH (19:49)
[2022-08-17] MEDS: SENNA 8.6 MG TAB (SENOKOT) PO SCH (19:50)
[2022-08-17 21:01] VITALS: BP 112/70; TEMP 97.4; O2SAT 95
[2022-08-18] MEDS: oxyCODONE 5MG TAB PO PRN ×4 (02:10→17:50)
[2022-08-18] MEDS: RAMELTEON 8 MG TAB (ROZEREM) PO PRN (02:10)
[2022-08-18] MEDS: VANCOMYCIN HCL 750 MG, VIAL MATE ADAPTER 1 EACH in D5W 250 ML IV SCH ×3 (05:16→22:50)
[2022-08-18 06:27] VITALS: BP 101/63; TEMP 97.1; O2SAT 96
[2022-08-18] MEDS: SODIUM CHLORIDE 0.9% INJ 10 ML SYR IV PRN (06:31)
[2022-08-18] MEDS: SODIUM CHLORIDE 0.9% INJ 10 ML SYR IV SCH ×2 (06:31→17:51)
[2022-08-18] MEDS: DOCUSATE SODIUM 100MG CAPSULE PO SCH ×2 (09:00→20:07)
[2022-08-18] MEDS: LACTOBACILLUS ACIDOPHILUS CAP (BACID) PO SCH ×2 (11:02→17:50)
[2022-08-18] MEDS: GABAPENTIN 300 MG CAP PO SCH ×2 (11:03→20:08)
[2022-08-18] MEDS: ASCORBIC ACID 500 MG TAB PO SCH ×2 (11:03→17:50)
[2022-08-18] MEDS: IBUPROFEN 600MG TAB PO SCH ×2 (11:03→20:08)
[2022-08-18] MEDS: FERROUS SULFATE 325MG TAB PO SCH ×2 (11:03→20:08)
[2022-08-18 13:25] LABS: VANCOMYCIN LEVEL TROUGH 17.3 UG/ML (10.0-20.0)
[2022-08-18 13:31] LABS: BLOOD UREA NITROGEN 12 MG/DL (9-23); CARBON DIOXIDE LEVEL 29 MMOL/L (20-31); CHLORIDE LEVEL 104 MMOL/L (98-107); CREATININE FOR GFR 0.64 MG/DL (0.70-1.30); GLOMERULAR FILTRATION RATE > 60.0 (>60); GLUCOSE, FASTING 90 MG/DL (60-100); POTASSIUM SERUM 4.4 MMOL/L (3.5-5.1); SODIUM LEVEL 138 MMOL/L (136-145)
[2022-08-18] MEDS: MORPHINE 2 MG/ML 1ML VIAL IV PRN (14:22)
[2022-08-18] MEDS ORDERED: MORPHINE 2 MG/ML 1ML VIAL IV PRN ×2 (15:51→22:00)
[2022-08-18] MEDS: SCOPOLAMINE 1MG TRANSDERMAL PATCH TOP SCH (20:00)
[2022-08-18] MEDS: SENNA 8.6 MG TAB (SENOKOT) PO SCH (20:07)
[2022-08-19] MEDS: VANCOMYCIN HCL 750 MG, VIAL MATE ADAPTER 1 EACH in D5W 250 ML IV SCH ×3 (05:19→21:16)
[2022-08-19] MEDS: oxyCODONE 5MG TAB PO PRN ×3 (05:19→21:16)
[2022-08-19 06:00] VITALS: BP 100/62; TEMP 98.2; O2SAT 94
[2022-08-19] MEDS: SODIUM CHLORIDE 0.9% INJ 10 ML SYR IV SCH ×2 (06:36→18:38)
[2022-08-19] MEDS: SODIUM CHLORIDE 0.9% INJ 10 ML SYR IV PRN (06:37)
[2022-08-19] MEDS: FERROUS SULFATE 325MG TAB PO SCH ×2 (08:59→21:17)
[2022-08-19] MEDS: GABAPENTIN 300 MG CAP PO SCH ×2 (08:59→21:17)
[2022-08-19] MEDS: IBUPROFEN 600MG TAB PO SCH ×2 (08:59→21:16)
[2022-08-19] MEDS: DOCUSATE SODIUM 100MG CAPSULE PO SCH ×2 (08:59→21:17)
[2022-08-19] MEDS: ASCORBIC ACID 500 MG TAB PO SCH ×2 (08:59→18:37)
[2022-08-19] MEDS: LACTOBACILLUS ACIDOPHILUS CAP (BACID) PO SCH ×2 (08:59→18:37)
[2022-08-19 14:01] LABS: VANCOMYCIN LEVEL TROUGH 16.6 UG/ML (10.0-20.0)
[2022-08-19 15:19] LABS: BLOOD UREA NITROGEN 13 MG/DL (9-23); CALCIUM LEVEL 9.5 MG/DL (8.5-10.1); CARBON DIOXIDE LEVEL 28 MMOL/L (20-31); CHLORIDE LEVEL 104 MMOL/L (98-107); CREATININE FOR GFR 0.64 MG/DL (0.70-1.30); GLOMERULAR FILTRATION RATE > 60.0 (>60); GLUCOSE, FASTING 89 MG/DL (60-100); POTASSIUM SERUM 4.3 MMOL/L (3.5-5.1); SODIUM LEVEL 138 MMOL/L (136-145)
[2022-08-19] MEDS: SENNA 8.6 MG TAB (SENOKOT) PO SCH (21:17)
[2022-08-20] MEDS: RAMELTEON 8 MG TAB (ROZEREM) PO PRN (00:05)
[2022-08-20] MEDS: oxyCODONE 5MG TAB PO PRN ×3 (05:08→18:31)
[2022-08-20] MEDS: SODIUM CHLORIDE 0.9% INJ 10 ML SYR IV SCH ×2 (05:09→18:20)
[2022-08-20] MEDS: VANCOMYCIN HCL 750 MG, VIAL MATE ADAPTER 1 EACH in D5W 250 ML IV SCH ×3 (05:09→21:53)
[2022-08-20 06:00] VITALS: BP 106/67; TEMP 98.1; O2SAT 94
[2022-08-20 09:00] VITALS: BP 108/68; TEMP 97.9; O2SAT 96
[2022-08-20] MEDS: ASCORBIC ACID 500 MG TAB PO SCH ×2 (09:02→18:19)
[2022-08-20] MEDS: GABAPENTIN 300 MG CAP PO SCH ×2 (09:02→21:53)
[2022-08-20] MEDS: DOCUSATE SODIUM 100MG CAPSULE PO SCH ×2 (09:02→21:00)
[2022-08-20] MEDS: FERROUS SULFATE 325MG TAB PO SCH ×2 (09:02→21:52)
[2022-08-20] MEDS: IBUPROFEN 600MG TAB PO SCH ×2 (09:02→21:52)
[2022-08-20] MEDS: LACTOBACILLUS ACIDOPHILUS CAP (BACID) PO SCH ×2 (09:02→18:19)
[2022-08-20 14:00] VITALS: BP 110/80; TEMP 98.2; O2SAT 98
[2022-08-20] MEDS: SENNA 8.6 MG TAB (SENOKOT) PO SCH (21:00)
[2022-08-21 05:00] VITALS: BP 123/84; TEMP 97.9; O2SAT 94
[2022-08-21] MEDS: SODIUM CHLORIDE 0.9% INJ 10 ML SYR IV SCH ×2 (05:42→18:16)
[2022-08-21] MEDS: VANCOMYCIN HCL 750 MG, VIAL MATE ADAPTER 1 EACH in D5W 250 ML IV SCH ×3 (05:42→21:50)
[2022-08-21] MEDS: LACTOBACILLUS ACIDOPHILUS CAP (BACID) PO SCH ×2 (08:36→18:16)
[2022-08-21] MEDS: oxyCODONE 5MG TAB PO PRN ×3 (08:36→23:08)
[2022-08-21] MEDS: ASCORBIC ACID 500 MG TAB PO SCH ×2 (08:36→18:16)
[2022-08-21] MEDS: GABAPENTIN 300 MG CAP PO SCH ×2 (08:37→21:51)
[2022-08-21] MEDS: IBUPROFEN 600MG TAB PO SCH ×2 (08:37→21:50)
[2022-08-21] MEDS: FERROUS SULFATE 325MG TAB PO SCH ×2 (08:37→21:50)
[2022-08-21] MEDS: DOCUSATE SODIUM 100MG CAPSULE PO SCH ×2 (08:37→21:50)
[2022-08-21] MEDS: SCOPOLAMINE 1MG TRANSDERMAL PATCH TOP SCH (20:00)
[2022-08-21] MEDS: SENNA 8.6 MG TAB (SENOKOT) PO SCH (21:50)
[2022-08-21] MEDS: RAMELTEON 8 MG TAB (ROZEREM) PO PRN (23:07)
[2022-08-22] MEDS: SODIUM CHLORIDE 0.9% INJ 10 ML SYR IV SCH ×2 (06:04→17:25)
[2022-08-22] MEDS: VANCOMYCIN HCL 750 MG, VIAL MATE ADAPTER 1 EACH in D5W 250 ML IV SCH ×3 (06:04→21:51)
[2022-08-22 06:26] VITALS: BP 108/63; TEMP 98.1; O2SAT 95
[2022-08-22] MEDS: ASCORBIC ACID 500 MG TAB PO SCH ×2 (09:19→17:25)
[2022-08-22] MEDS: oxyCODONE 5MG TAB PO PRN ×2 (09:19→16:03)
[2022-08-22] MEDS: IBUPROFEN 600MG TAB PO SCH ×2 (09:19→21:03)
[2022-08-22] MEDS: GABAPENTIN 300 MG CAP PO SCH ×2 (09:19→21:04)
[2022-08-22] MEDS: LACTOBACILLUS ACIDOPHILUS CAP (BACID) PO SCH ×2 (09:19→17:25)
[2022-08-22] MEDS: FERROUS SULFATE 325MG TAB PO SCH ×2 (09:20→21:03)
[2022-08-22] MEDS: DOCUSATE SODIUM 100MG CAPSULE PO SCH ×2 (09:20→21:03)
[2022-08-22 14:07] LABS: BLOOD UREA NITROGEN 15 MG/DL (9-23); CARBON DIOXIDE LEVEL 26 MMOL/L (20-31); CHLORIDE LEVEL 105 MMOL/L (98-107); CREATININE FOR GFR 0.62 MG/DL (0.70-1.30); GLOMERULAR FILTRATION RATE > 60.0 (>60); GLUCOSE, FASTING 92 MG/DL (60-100); POTASSIUM SERUM 4.4 MMOL/L (3.5-5.1); SODIUM LEVEL 137 MMOL/L (136-145)
[2022-08-22] MEDS: TORSEMIDE 20 MG TAB PO SCH (14:37)
[2022-08-22] MEDS: SENNA 8.6 MG TAB (SENOKOT) PO SCH (21:03)
[2022-08-23 05:26] VITALS: BP 122/77; TEMP 97.7; O2SAT 91
[2022-08-23] MEDS: SODIUM CHLORIDE 0.9% INJ 10 ML SYR IV SCH ×2 (05:58→17:53)
[2022-08-23] MEDS: VANCOMYCIN HCL 750 MG, VIAL MATE ADAPTER 1 EACH in D5W 250 ML IV SCH ×3 (05:58→21:44)
[2022-08-23] MEDS: FERROUS SULFATE 325MG TAB PO SCH ×2 (08:51→21:44)
[2022-08-23] MEDS: ASCORBIC ACID 500 MG TAB PO SCH ×2 (08:51→17:50)
[2022-08-23] MEDS: DOCUSATE SODIUM 100MG CAPSULE PO SCH ×2 (08:51→21:00)
[2022-08-23] MEDS: LACTOBACILLUS ACIDOPHILUS CAP (BACID) PO SCH ×2 (08:51→17:50)
[2022-08-23] MEDS: oxyCODONE 5MG TAB PO PRN ×2 (08:51→17:53)
[2022-08-23] MEDS: TORSEMIDE 20 MG TAB PO SCH (08:51)
[2022-08-23] MEDS: GABAPENTIN 300 MG CAP PO SCH ×2 (08:51→21:44)
[2022-08-23] MEDS: IBUPROFEN 600MG TAB PO SCH ×2 (08:52→21:45)
[2022-08-23] MEDS: SENNA 8.6 MG TAB (SENOKOT) PO SCH (21:00)
[2022-08-24 02:49] VITALS: BP 115/71; TEMP 98.2; O2SAT 93
[2022-08-24] MEDS: oxyCODONE 5MG TAB PO PRN ×4 (02:53→21:10)
[2022-08-24] MEDS: SODIUM CHLORIDE 0.9% INJ 10 ML SYR IV SCH ×2 (05:39→18:32)
[2022-08-24] MEDS: VANCOMYCIN HCL 750 MG, VIAL MATE ADAPTER 1 EACH in D5W 250 ML IV SCH ×3 (05:39→22:20)
[2022-08-24] MEDS: LACTOBACILLUS ACIDOPHILUS CAP (BACID) PO SCH ×2 (08:40→18:32)
[2022-08-24] MEDS: FERROUS SULFATE 325MG TAB PO SCH ×2 (08:40→21:12)
[2022-08-24] MEDS: ASCORBIC ACID 500 MG TAB PO SCH ×2 (08:42→18:31)
[2022-08-24] MEDS: IBUPROFEN 600MG TAB PO SCH ×2 (08:42→21:11)
[2022-08-24] MEDS: GABAPENTIN 300 MG CAP PO SCH ×2 (08:42→21:11)
[2022-08-24] MEDS: TORSEMIDE 20 MG TAB PO SCH (08:42)
[2022-08-24] MEDS: DOCUSATE SODIUM 100MG CAPSULE PO SCH (08:43)
[2022-08-24 12:06] LABS: BASO % 0.4 % (0.0-1.0); EOS # 0.1 10^3/uL (0.0-0.5); EOS % 1.7 % (0.0-3.0); HEMATOCRIT 41.9 % (42.0-52.0); LYMPH # 2.1 10^3/uL (1.5-5.0); LYMPH % 24.6 % (24.0-44.0); MEAN CORPUSCULAR HEMOGLOBIN 27.2 pg (27.0-33.0); MEAN CORPUSCULAR VOLUME 87.7 fl (80.0-96.0); MONO # 0.6 10^3/uL (0.0-0.8); MONO % 6.7 % (2.0-8.0); NEUTROPHILS # 5.6 10^3/uL (1.5-8.5); NEUTROPHILS % 66.1 % (36.0-66.0); PLATELET COUNT, AUTOMATED 274 10^3/uL (150-450); RED BLOOD COUNT 4.78 10^6/uL (4.30-6.10); WHITE BLOOD COUNT 8.4 10^3/uL (4.0-10.0)
[2022-08-24 12:20] LABS: BLOOD UREA NITROGEN 18 MG/DL (9-23); CALCIUM LEVEL 9.8 MG/DL (8.5-10.1); CARBON DIOXIDE LEVEL 27 MMOL/L (20-31); CHLORIDE LEVEL 101 MMOL/L (98-107); CREATININE FOR GFR 0.75 MG/DL (0.70-1.30); GLOMERULAR FILTRATION RATE > 60.0 (>60); GLUCOSE, FASTING 149 MG/DL (60-100); POTASSIUM SERUM 3.7 MMOL/L (3.5-5.1); SODIUM LEVEL 138 MMOL/L (136-145)
[2022-08-24 12:31] LABS: ERYTHROCYTE SEDIMENTATION RATE 58 mm/hr (0-15)
[2022-08-24] MEDS: KETOCONAZOLE 2% CREAM TOP SCH (12:47)
[2022-08-24] MEDS: SCOPOLAMINE 1MG TRANSDERMAL PATCH TOP SCH (20:00)
[2022-08-24] MEDS: SENNA 8.6 MG TAB (SENOKOT) PO SCH (21:00)
[2022-08-24 21:10] VITALS: BP 109/74; TEMP 98.2; O2SAT 92
[2022-08-24] MEDS: RAMELTEON 8 MG TAB (ROZEREM) PO PRN (21:11)
[2022-08-24] MEDS: ANUSOL HC CREAM 30GM TOP SCH (22:22)
[2022-08-24] MEDS: SODIUM CHLORIDE 0.9% INJ 10 ML SYR IV PRN (23:50)
[2022-08-25 05:43] VITALS: BP 116/67; TEMP 97.9; O2SAT 95
[2022-08-25] MEDS: VANCOMYCIN HCL 750 MG, VIAL MATE ADAPTER 1 EACH in D5W 250 ML IV SCH ×3 (06:27→21:38)
[2022-08-25] MEDS: oxyCODONE 5MG TAB PO PRN ×3 (06:28→22:57)
[2022-08-25] MEDS: SODIUM CHLORIDE 0.9% INJ 10 ML SYR IV SCH ×2 (06:29→17:49)
[2022-08-25] MEDS: ASCORBIC ACID 500 MG TAB PO SCH ×2 (09:13→16:54)
[2022-08-25] MEDS: IBUPROFEN 600MG TAB PO SCH ×2 (09:13→21:13)
[2022-08-25] MEDS: GABAPENTIN 300 MG CAP PO SCH ×2 (09:13→21:13)
[2022-08-25] MEDS: LACTOBACILLUS ACIDOPHILUS CAP (BACID) PO SCH ×2 (09:13→16:53)
[2022-08-25] MEDS: KETOCONAZOLE 2% CREAM TOP SCH (09:14)
[2022-08-25] MEDS: TORSEMIDE 20 MG TAB PO SCH (09:14)
[2022-08-25] MEDS: FERROUS SULFATE 325MG TAB PO SCH ×2 (09:14→21:13)
[2022-08-25] MEDS: SENNA 8.6 MG TAB (SENOKOT) PO SCH (21:00)
[2022-08-25] MEDS: APIXABAN 5 MG TAB (ELIQUIS) PO SCH (21:13)
[2022-08-25] MEDS: ANUSOL HC CREAM 30GM TOP SCH (21:14)
[2022-08-25 21:20] LABS: INR 0.85; PARTIAL THROMBOPLASTIN TIME 27.1 SECONDS (24.8-34.2); PROTHROMBIN TIME 11.8 SECONDS (12.5-14.5)
[2022-08-25] MEDS: RAMELTEON 8 MG TAB (ROZEREM) PO PRN (22:55)
[2022-08-25] MEDS: SODIUM CHLORIDE 0.9% INJ 10 ML SYR IV PRN (22:57)
[2022-08-25 22:59] VITALS: BP 105/69; TEMP 97.7; O2SAT 94
[2022-08-26 05:59] VITALS: BP 104/59; TEMP 98.1; O2SAT 95
[2022-08-26] MEDS: VANCOMYCIN HCL 750 MG, VIAL MATE ADAPTER 1 EACH in D5W 250 ML IV SCH (06:29)
[2022-08-26] MEDS: SODIUM CHLORIDE 0.9% INJ 10 ML SYR IV SCH ×2 (06:30→18:02)
[2022-08-26] MEDS: IBUPROFEN 600MG TAB PO SCH ×2 (09:55→20:51)
[2022-08-26] MEDS: oxyCODONE 5MG TAB PO PRN ×3 (09:56→23:16)
[2022-08-26] MEDS: TORSEMIDE 20 MG TAB PO SCH (09:56)
[2022-08-26] MEDS: LACTOBACILLUS ACIDOPHILUS CAP (BACID) PO SCH ×2 (09:56→18:02)
[2022-08-26] MEDS: GABAPENTIN 300 MG CAP PO SCH ×2 (09:56→20:51)
[2022-08-26] MEDS: PANTOPRAZOLE 40MG TAB (PROTONIX) PO SCH (09:56)
[2022-08-26] MEDS: ASCORBIC ACID 500 MG TAB PO SCH ×2 (09:56→18:02)
[2022-08-26] MEDS: APIXABAN 5 MG TAB (ELIQUIS) PO SCH ×2 (09:56→20:51)
[2022-08-26] MEDS: KETOCONAZOLE 2% CREAM TOP SCH (09:57)
[2022-08-26] MEDS: FERROUS SULFATE 325MG TAB PO SCH ×2 (10:05→20:50)
[2022-08-26] MEDS: VANCOMYCIN HCL 1,000 MG, VIAL MATE ADAPTER 1 EACH in D5W 250 ML IV SCH (16:44)
[2022-08-26] MEDS: SENNA 8.6 MG TAB (SENOKOT) PO SCH (20:51)
[2022-08-26 21:49] VITALS: BP 113/66; TEMP 97.4; O2SAT 93
[2022-08-26] MEDS: RAMELTEON 8 MG TAB (ROZEREM) PO PRN (23:11)
[2022-08-26] MEDS: ANUSOL HC CREAM 30GM TOP SCH (23:13)
[2022-08-27] MEDS: VANCOMYCIN HCL 1,000 MG, VIAL MATE ADAPTER 1 EACH in D5W 250 ML IV SCH ×2 (05:31→17:55)
[2022-08-27] MEDS: SODIUM CHLORIDE 0.9% INJ 10 ML SYR IV SCH ×2 (05:31→17:57)
[2022-08-27 06:29] VITALS: BP 8/64; TEMP 97.1; O2SAT 96
[2022-08-27] MEDS: FERROUS SULFATE 325MG TAB PO SCH ×2 (08:05→22:06)
[2022-08-27] MEDS: LACTOBACILLUS ACIDOPHILUS CAP (BACID) PO SCH ×2 (08:05→17:55)
[2022-08-27] MEDS: IBUPROFEN 600MG TAB PO SCH ×2 (08:06→22:06)
[2022-08-27] MEDS: APIXABAN 5 MG TAB (ELIQUIS) PO SCH ×2 (08:06→22:06)
[2022-08-27] MEDS: PANTOPRAZOLE 40MG TAB (PROTONIX) PO SCH (08:06)
[2022-08-27] MEDS: GABAPENTIN 300 MG CAP PO SCH ×2 (08:07→22:05)
[2022-08-27] MEDS: ASCORBIC ACID 500 MG TAB PO SCH ×2 (08:07→17:56)
[2022-08-27] MEDS: TORSEMIDE 20 MG TAB PO SCH (08:07)
[2022-08-27] MEDS: oxyCODONE 5MG TAB PO PRN ×3 (08:08→22:05)
[2022-08-27] MEDS: SODIUM CHLORIDE 0.9% INJ 10 ML SYR IV PRN (08:10)
[2022-08-27] MEDS: KETOCONAZOLE 2% CREAM TOP SCH (08:11)
[2022-08-27 13:13] VITALS: BP 106/63
[2022-08-27 17:19] LABS: VANCOMYCIN LEVEL TROUGH 15.7 UG/ML (10.0-20.0)
[2022-08-27 17:21] LABS: BLOOD UREA NITROGEN 23 MG/DL (9-23); CALCIUM LEVEL 8.6 MG/DL (8.5-10.1); CARBON DIOXIDE LEVEL 28 MMOL/L (20-31); CHLORIDE LEVEL 102 MMOL/L (98-107); CREATININE FOR GFR 0.77 MG/DL (0.70-1.30); GLOMERULAR FILTRATION RATE > 60.0 (>60); GLUCOSE, FASTING 111 MG/DL (60-100); POTASSIUM SERUM 3.9 MMOL/L (3.5-5.1); SODIUM LEVEL 139 MMOL/L (136-145)
[2022-08-27] MEDS: SCOPOLAMINE 1MG TRANSDERMAL PATCH TOP SCH (20:00)
[2022-08-27] MEDS: SENNA 8.6 MG TAB (SENOKOT) PO SCH (22:05)
[2022-08-27] MEDS: ANUSOL HC CREAM 30GM TOP SCH (22:07)
[2022-08-28] MEDS: RAMELTEON 8 MG TAB (ROZEREM) PO PRN ×2 (00:45→22:20)
[2022-08-28 01:27] VITALS: BP 100/60; TEMP 97.6; O2SAT 96
[2022-08-28] MEDS: VANCOMYCIN HCL 1,000 MG, VIAL MATE ADAPTER 1 EACH in D5W 250 ML IV SCH ×2 (05:28→18:12)
[2022-08-28] MEDS: SODIUM CHLORIDE 0.9% INJ 10 ML SYR IV SCH ×2 (05:28→18:13)
[2022-08-28] MEDS: oxyCODONE 5MG TAB PO PRN ×3 (05:36→21:20)
[2022-08-28] MEDS: APIXABAN 5 MG TAB (ELIQUIS) PO SCH ×2 (09:26→21:19)
[2022-08-28] MEDS: FERROUS SULFATE 325MG TAB PO SCH ×2 (09:26→21:20)
[2022-08-28] MEDS: TORSEMIDE 20 MG TAB PO SCH (09:26)
[2022-08-28] MEDS: ASCORBIC ACID 500 MG TAB PO SCH ×2 (09:27→18:12)
[2022-08-28] MEDS: PANTOPRAZOLE 40MG TAB (PROTONIX) PO SCH (09:27)
[2022-08-28] MEDS: GABAPENTIN 300 MG CAP PO SCH ×2 (09:27→21:19)
[2022-08-28] MEDS: LACTOBACILLUS ACIDOPHILUS CAP (BACID) PO SCH ×2 (09:27→18:12)
[2022-08-28] MEDS: IBUPROFEN 600MG TAB PO SCH ×2 (09:28→21:18)
[2022-08-28] MEDS: KETOCONAZOLE 2% CREAM TOP SCH (09:29)
[2022-08-28] MEDS: SENNA 8.6 MG TAB (SENOKOT) PO SCH (21:19)
[2022-08-28] MEDS: ANUSOL HC CREAM 30GM TOP SCH (21:20)
[2022-08-29] MEDS: VANCOMYCIN HCL 1,000 MG, VIAL MATE ADAPTER 1 EACH in D5W 250 ML IV SCH ×2 (05:19→18:32)
[2022-08-29] MEDS: SODIUM CHLORIDE 0.9% INJ 10 ML SYR IV SCH ×2 (05:19→18:34)
[2022-08-29 06:11] LABS: BASO % 0.5 % (0.0-1.0); EOS # 0.3 10^3/uL (0.0-0.5); EOS % 4.4 % (0.0-3.0); HEMATOCRIT 36.9 % (42.0-52.0); HEMOGLOBIN 11.6 g/dl (13.5-17.5); LYMPH # 2.5 10^3/uL (1.5-5.0); LYMPH % 41.7 % (24.0-44.0); MEAN CORPUSCULAR HEMOGLOBIN 27.2 pg (27.0-33.0); MEAN CORPUSCULAR HGB CONC 31.4 g/dl (32.0-36.5); MEAN CORPUSCULAR VOLUME 86.4 fl (80.0-96.0); MONO # 0.6 10^3/uL (0.0-0.8); MONO % 9.4 % (2.0-8.0); NEUTROPHILS # 2.6 10^3/uL (1.5-8.5); NEUTROPHILS % 43.5 % (36.0-66.0); PLATELET COUNT, AUTOMATED 237 10^3/uL (150-450); RED BLOOD COUNT 4.27 10^6/uL (4.30-6.10)
[2022-08-29 06:19] VITALS: BP 114/60; TEMP 97.7; O2SAT 98
[2022-08-29 06:20] LABS: ERYTHROCYTE SEDIMENTATION RATE 36 mm/hr (0-15)
[2022-08-29 06:30] LABS: ALKALINE PHOSPHATASE 126 U/L (46-116); ALT/SGPT 34 U/L (7.0-40); AST/SGOT 30 U/L (<34); BILIRUBIN,TOTAL 0.3 MG/DL (0.3-1.2); BLOOD UREA NITROGEN 21 MG/DL (9-23); CALCIUM LEVEL 8.8 MG/DL (8.5-10.1); CARBON DIOXIDE LEVEL 29 MMOL/L (20-31); CHLORIDE LEVEL 103 MMOL/L (98-107); CREATININE FOR GFR 0.76 MG/DL (0.70-1.30); GLOMERULAR FILTRATION RATE > 60.0 (>60); GLUCOSE, FASTING 97 MG/DL (60-100); POTASSIUM SERUM 4.1 MMOL/L (3.5-5.1); SODIUM LEVEL 138 MMOL/L (136-145); TOTAL PROTEIN 6.3 G/DL (5.7-8.2)
[2022-08-29] MEDS: APIXABAN 5 MG TAB (ELIQUIS) PO SCH ×2 (08:07→21:24)
[2022-08-29] MEDS: LACTOBACILLUS ACIDOPHILUS CAP (BACID) PO SCH ×2 (08:07→18:33)
[2022-08-29] MEDS: FERROUS SULFATE 325MG TAB PO SCH ×2 (08:07→21:24)
[2022-08-29] MEDS: GABAPENTIN 300 MG CAP PO SCH ×2 (08:08→21:24)
[2022-08-29] MEDS: ASCORBIC ACID 500 MG TAB PO SCH ×3 (08:08→18:50)
[2022-08-29] MEDS: IBUPROFEN 600MG TAB PO SCH ×2 (08:08→21:24)
[2022-08-29] MEDS: PANTOPRAZOLE 40MG TAB (PROTONIX) PO SCH (08:08)
[2022-08-29] MEDS: oxyCODONE 5MG TAB PO PRN ×3 (08:09→21:27)
[2022-08-29] MEDS: KETOCONAZOLE 2% CREAM TOP SCH (08:11)
[2022-08-29] MEDS: SODIUM CHLORIDE 0.9% INJ 10 ML SYR IV PRN (08:23)
[2022-08-29] MEDS: SENNA 8.6 MG TAB (SENOKOT) PO SCH (21:24)
[2022-08-29] MEDS: RAMELTEON 8 MG TAB (ROZEREM) PO PRN (21:26)
[2022-08-29] MEDS: ANUSOL HC CREAM 30GM TOP SCH (21:29)
[2022-08-30] MEDS: oxyCODONE 5MG TAB PO PRN ×3 (04:15→20:37)
[2022-08-30] MEDS: VANCOMYCIN HCL 1,000 MG, VIAL MATE ADAPTER 1 EACH in D5W 250 ML IV SCH ×2 (04:20→17:47)
[2022-08-30 06:00] VITALS: BP 111/61; TEMP 97.7; O2SAT 98
[2022-08-30] MEDS: SODIUM CHLORIDE 0.9% INJ 10 ML SYR IV SCH ×2 (06:43→17:49)
[2022-08-30] MEDS: FERROUS SULFATE 325MG TAB PO SCH ×2 (08:06→20:37)
[2022-08-30] MEDS: LACTOBACILLUS ACIDOPHILUS CAP (BACID) PO SCH ×2 (08:06→17:48)
[2022-08-30] MEDS: APIXABAN 5 MG TAB (ELIQUIS) PO SCH ×2 (08:06→20:37)
[2022-08-30] MEDS: GABAPENTIN 300 MG CAP PO SCH ×2 (08:07→20:36)
[2022-08-30] MEDS: ASCORBIC ACID 500 MG TAB PO SCH ×2 (08:07→17:48)
[2022-08-30] MEDS: PANTOPRAZOLE 40MG TAB (PROTONIX) PO SCH (08:07)
[2022-08-30] MEDS: IBUPROFEN 600MG TAB PO SCH ×2 (08:07→20:37)
[2022-08-30] MEDS: KETOCONAZOLE 2% CREAM TOP SCH (08:08)
[2022-08-30] MEDS: SCOPOLAMINE 1MG TRANSDERMAL PATCH TOP SCH (20:00)
[2022-08-30] MEDS: SENNA 8.6 MG TAB (SENOKOT) PO SCH (20:37)
[2022-08-30] MEDS: ANUSOL HC CREAM 30GM TOP SCH (20:38)
[2022-08-30 20:59] LABS: HEMATOCRIT 36.1 % (42.0-52.0); HEMOGLOBIN 11.4 g/dl (13.5-17.5); MEAN CORPUSCULAR HEMOGLOBIN 27.1 pg (27.0-33.0); MEAN CORPUSCULAR HGB CONC 31.6 g/dl (32.0-36.5); PLATELET COUNT, AUTOMATED 231 10^3/uL (150-450); WHITE BLOOD COUNT 6.4 10^3/uL (4.0-10.0)
[2022-08-30 21:32] LABS: BLOOD UREA NITROGEN 16 MG/DL (9-23); CALCIUM LEVEL 8.4 MG/DL (8.5-10.1); CARBON DIOXIDE LEVEL 26 MMOL/L (20-31); CHLORIDE LEVEL 106 MMOL/L (98-107); CREATININE FOR GFR 0.67 MG/DL (0.70-1.30); GLOMERULAR FILTRATION RATE > 60.0 (>60); GLUCOSE, FASTING 107 MG/DL (60-100); POTASSIUM SERUM 4.2 MMOL/L (3.5-5.1); SODIUM LEVEL 138 MMOL/L (136-145)
[2022-08-31] MEDS: ACETAMINOPHEN TAB 650MG DOSE (2X325MG) PO PRN (00:14)
[2022-08-31] MEDS: RAMELTEON 8 MG TAB (ROZEREM) PO PRN (00:14)
[2022-08-31] MEDS: oxyCODONE 5MG TAB PO PRN ×3 (03:28→16:57)
[2022-08-31] MEDS: VANCOMYCIN HCL 1,000 MG, VIAL MATE ADAPTER 1 EACH in D5W 250 ML IV SCH ×2 (05:03→17:48)
[2022-08-31] MEDS: SODIUM CHLORIDE 0.9% INJ 10 ML SYR IV SCH ×2 (05:04→17:49)
[2022-08-31 06:19] VITALS: BP 104/58; TEMP 98.1; O2SAT 99
[2022-08-31] MEDS: APIXABAN 5 MG TAB (ELIQUIS) PO SCH ×2 (09:31→20:56)
[2022-08-31] MEDS: LACTOBACILLUS ACIDOPHILUS CAP (BACID) PO SCH ×2 (09:31→17:49)
[2022-08-31] MEDS: ASCORBIC ACID 500 MG TAB PO SCH ×2 (09:32→17:49)
[2022-08-31] MEDS: PANTOPRAZOLE 40MG TAB (PROTONIX) PO SCH (09:32)
[2022-08-31] MEDS: IBUPROFEN 600MG TAB PO SCH ×2 (09:32→20:57)
[2022-08-31] MEDS: FERROUS SULFATE 325MG TAB PO SCH ×2 (09:32→20:56)
[2022-08-31] MEDS: KETOCONAZOLE 2% CREAM TOP SCH (09:33)
[2022-08-31] MEDS: GABAPENTIN 300 MG CAP PO SCH ×2 (09:33→20:56)
[2022-08-31] MEDS: ANUSOL HC CREAM 30GM TOP SCH (20:57)
[2022-08-31] MEDS: SENNA 8.6 MG TAB (SENOKOT) PO SCH (20:57)
[2022-09-01] MEDS: RAMELTEON 8 MG TAB (ROZEREM) PO PRN ×2 (00:19→23:42)
[2022-09-01] MEDS: SODIUM CHLORIDE 0.9% INJ 10 ML SYR IV SCH ×2 (05:06→18:58)
[2022-09-01] MEDS: VANCOMYCIN HCL 1,000 MG, VIAL MATE ADAPTER 1 EACH in D5W 250 ML IV SCH ×2 (05:06→16:50)
[2022-09-01 06:00] VITALS: BP 130/73; TEMP 96.3; O2SAT 97
[2022-09-01] MEDS: IBUPROFEN 600MG TAB PO SCH ×2 (10:07→20:48)
[2022-09-01] MEDS: oxyCODONE 5MG TAB PO PRN ×2 (10:08→16:50)
[2022-09-01] MEDS: GABAPENTIN 300 MG CAP PO SCH ×2 (10:08→20:48)
[2022-09-01] MEDS: APIXABAN 5 MG TAB (ELIQUIS) PO SCH ×2 (10:08→20:48)
[2022-09-01] MEDS: ASCORBIC ACID 500 MG TAB PO SCH ×2 (10:08→18:58)
[2022-09-01] MEDS: LACTOBACILLUS ACIDOPHILUS CAP (BACID) PO SCH ×2 (10:08→18:58)
[2022-09-01] MEDS: FERROUS SULFATE 325MG TAB PO SCH ×2 (10:09→20:48)
[2022-09-01] MEDS: PANTOPRAZOLE 40MG TAB (PROTONIX) PO SCH (10:09)
[2022-09-01] MEDS: KETOCONAZOLE 2% CREAM TOP SCH (10:09)
[2022-09-01] MEDS: ANUSOL HC CREAM 30GM TOP SCH (20:48)
[2022-09-01] MEDS: SENNA 8.6 MG TAB (SENOKOT) PO SCH (20:48)
[2022-09-02] MEDS: VANCOMYCIN HCL 1,000 MG, VIAL MATE ADAPTER 1 EACH in D5W 250 ML IV SCH ×2 (05:09→18:09)
[2022-09-02 06:00] VITALS: BP 127/79; TEMP 97.9; O2SAT 95
[2022-09-02] MEDS: SODIUM CHLORIDE 0.9% INJ 10 ML SYR IV SCH ×2 (06:18→18:09)
[2022-09-02] MEDS: ASCORBIC ACID 500 MG TAB PO SCH ×2 (08:08→18:09)
[2022-09-02] MEDS: LACTOBACILLUS ACIDOPHILUS CAP (BACID) PO SCH ×2 (08:08→18:09)
[2022-09-02] MEDS: IBUPROFEN 600MG TAB PO SCH ×2 (08:09→20:27)
[2022-09-02] MEDS: PANTOPRAZOLE 40MG TAB (PROTONIX) PO SCH (08:10)
[2022-09-02] MEDS: GABAPENTIN 300 MG CAP PO SCH ×2 (08:10→20:28)
[2022-09-02] MEDS: APIXABAN 5 MG TAB (ELIQUIS) PO SCH ×2 (08:10→21:37)
[2022-09-02] MEDS: FERROUS SULFATE 325MG TAB PO SCH ×2 (08:10→20:28)
[2022-09-02] MEDS: oxyCODONE 5MG TAB PO PRN ×3 (08:10→22:07)
[2022-09-02] MEDS: KETOCONAZOLE 2% CREAM TOP SCH (08:10)
[2022-09-02] MEDS: SCOPOLAMINE 1MG TRANSDERMAL PATCH TOP SCH (20:00)
[2022-09-02] MEDS: SENNA 8.6 MG TAB (SENOKOT) PO SCH (20:28)
[2022-09-02] MEDS: ACETAMINOPHEN TAB 650MG DOSE (2X325MG) PO PRN (20:28)
[2022-09-02] MEDS: RAMELTEON 8 MG TAB (ROZEREM) PO PRN (21:37)
[2022-09-02] MEDS: ANUSOL HC CREAM 30GM TOP SCH (21:37)
[2022-09-03 00:10] VITALS: BP 108/62; TEMP 97.9; O2SAT 97
[2022-09-03] MEDS: oxyCODONE 5MG TAB PO PRN ×2 (05:16→12:31)
[2022-09-03] MEDS: VANCOMYCIN HCL 1,000 MG, VIAL MATE ADAPTER 1 EACH in D5W 250 ML IV SCH ×2 (05:16→18:20)
[2022-09-03 06:00] VITALS: BP 104/60; TEMP 98.1; O2SAT 94
[2022-09-03] MEDS: SODIUM CHLORIDE 0.9% INJ 10 ML SYR IV SCH ×2 (06:18→18:21)
[2022-09-03] MEDS: APIXABAN 5 MG TAB (ELIQUIS) PO SCH ×2 (09:37→19:51)
[2022-09-03] MEDS: GABAPENTIN 300 MG CAP PO SCH ×2 (09:37→19:51)
[2022-09-03] MEDS: ASCORBIC ACID 500 MG TAB PO SCH ×2 (09:37→18:20)
[2022-09-03] MEDS: LACTOBACILLUS ACIDOPHILUS CAP (BACID) PO SCH ×2 (09:37→18:19)
[2022-09-03] MEDS: PANTOPRAZOLE 40MG TAB (PROTONIX) PO SCH (09:37)
[2022-09-03] MEDS: FERROUS SULFATE 325MG TAB PO SCH ×2 (09:37→19:50)
[2022-09-03] MEDS: IBUPROFEN 600MG TAB PO SCH ×2 (09:37→19:50)
[2022-09-03] MEDS: KETOCONAZOLE 2% CREAM TOP SCH (09:38)
[2022-09-03 14:18] VITALS: BP 112/66
[2022-09-03] MEDS ORDERED: oxyCODONE 5MG TAB PO ONE (19:20)
[2022-09-03] MEDS ORDERED: KETOROLAC 30 MG/ML 1ML VIAL IV ONE (19:20)
[2022-09-03] MEDS: SENNA 8.6 MG TAB (SENOKOT) PO SCH (19:51)
[2022-09-03] MEDS: ANUSOL HC CREAM 30GM TOP SCH (19:51)
[2022-09-03 20:44] LABS: HEMATOCRIT 35.5 % (42.0-52.0); HEMOGLOBIN 11.4 g/dl (13.5-17.5); MEAN CORPUSCULAR HEMOGLOBIN 27.5 pg (27.0-33.0); MEAN CORPUSCULAR HGB CONC 32.1 g/dl (32.0-36.5); MEAN CORPUSCULAR VOLUME 85.7 fl (80.0-96.0); PLATELET COUNT, AUTOMATED 224 10^3/uL (150-450); RED BLOOD COUNT 4.14 10^6/uL (4.30-6.10); WHITE BLOOD COUNT 7.3 10^3/uL (4.0-10.0)
[2022-09-03] MEDS: SODIUM CHLORIDE 0.9% INJ 10 ML SYR IV PRN (20:57)
[2022-09-03 21:07] LABS: BLOOD UREA NITROGEN 14 MG/DL (9-23); CALCIUM LEVEL 8.7 MG/DL (8.5-10.1); CARBON DIOXIDE LEVEL 26 MMOL/L (20-31); CHLORIDE LEVEL 106 MMOL/L (98-107); CREATININE FOR GFR 0.64 MG/DL (0.70-1.30); GLOMERULAR FILTRATION RATE > 60.0 (>60); GLUCOSE, FASTING 112 MG/DL (60-100); POTASSIUM SERUM 4.1 MMOL/L (3.5-5.1); SODIUM LEVEL 138 MMOL/L (136-145)
[2022-09-04] MEDS: RAMELTEON 8 MG TAB (ROZEREM) PO PRN ×2 (00:20→22:26)
[2022-09-04] MEDS: oxyCODONE 5MG TAB PO PRN ×4 (02:48→22:25)
[2022-09-04 02:49] VITALS: BP 103/61; TEMP 97.9; O2SAT 96
[2022-09-04] MEDS: VANCOMYCIN HCL 1,000 MG, VIAL MATE ADAPTER 1 EACH in D5W 250 ML IV SCH ×2 (05:03→17:02)
[2022-09-04] MEDS: SODIUM CHLORIDE 0.9% INJ 10 ML SYR IV SCH ×2 (06:19→18:25)
[2022-09-04] MEDS: FERROUS SULFATE 325MG TAB PO SCH ×2 (08:02→21:29)
[2022-09-04] MEDS: LACTOBACILLUS ACIDOPHILUS CAP (BACID) PO SCH ×2 (08:02→18:25)
[2022-09-04] MEDS: PANTOPRAZOLE 40MG TAB (PROTONIX) PO SCH (08:03)
[2022-09-04] MEDS: APIXABAN 5 MG TAB (ELIQUIS) PO SCH ×2 (08:03→21:29)
[2022-09-04] MEDS: GABAPENTIN 300 MG CAP PO SCH ×2 (08:03→21:29)
[2022-09-04] MEDS: KETOCONAZOLE 2% CREAM TOP SCH (08:03)
[2022-09-04] MEDS: IBUPROFEN 600MG TAB PO SCH ×2 (08:03→21:29)
[2022-09-04] MEDS: ASCORBIC ACID 500 MG TAB PO SCH ×2 (08:03→18:25)
[2022-09-04] MEDS: SODIUM CHLORIDE 0.9% INJ 10 ML SYR IV PRN (18:25)
[2022-09-04] MEDS: SENNA 8.6 MG TAB (SENOKOT) PO SCH (21:29)
[2022-09-04] MEDS: ANUSOL HC CREAM 30GM TOP SCH (21:30)
[2022-09-05 00:55] VITALS: BP 107/61; TEMP 98.1; O2SAT 96
[2022-09-05] MEDS: VANCOMYCIN HCL 1,000 MG, VIAL MATE ADAPTER 1 EACH in D5W 250 ML IV SCH ×2 (05:20→16:48)
[2022-09-05] MEDS: SODIUM CHLORIDE 0.9% INJ 10 ML SYR IV SCH ×2 (05:21→18:17)
[2022-09-05] MEDS: oxyCODONE 5MG TAB PO PRN ×3 (06:31→19:54)
[2022-09-05] MEDS: FERROUS SULFATE 325MG TAB PO SCH ×2 (08:48→21:04)
[2022-09-05] MEDS: ASCORBIC ACID 500 MG TAB PO SCH ×2 (08:48→18:16)
[2022-09-05] MEDS: GABAPENTIN 300 MG CAP PO SCH ×2 (08:48→21:04)
[2022-09-05] MEDS: LACTOBACILLUS ACIDOPHILUS CAP (BACID) PO SCH ×2 (08:48→18:16)
[2022-09-05] MEDS: APIXABAN 5 MG TAB (ELIQUIS) PO SCH ×2 (08:48→21:04)
[2022-09-05] MEDS: PANTOPRAZOLE 40MG TAB (PROTONIX) PO SCH (08:48)
[2022-09-05] MEDS: IBUPROFEN 600MG TAB PO SCH ×2 (08:48→21:04)
[2022-09-05] MEDS: KETOCONAZOLE 2% CREAM TOP SCH (08:49)
[2022-09-05] MEDS: SODIUM CHLORIDE 0.9% INJ 10 ML SYR IV PRN (18:17)
[2022-09-05] MEDS: SENNA 8.6 MG TAB (SENOKOT) PO SCH (21:04)
[2022-09-05] MEDS: ANUSOL HC CREAM 30GM TOP SCH (21:05)
[2022-09-05] MEDS: RAMELTEON 8 MG TAB (ROZEREM) PO PRN (21:15)
[2022-09-06] MEDS: SODIUM CHLORIDE 0.9% INJ 10 ML SYR IV SCH ×2 (05:24→18:39)
[2022-09-06] MEDS: VANCOMYCIN HCL 1,000 MG, VIAL MATE ADAPTER 1 EACH in D5W 250 ML IV SCH ×2 (05:24→17:32)
[2022-09-06] MEDS: oxyCODONE 5MG TAB PO PRN ×3 (05:31→18:37)
[2022-09-06 05:58] VITALS: BP 113/65; TEMP 98.1; O2SAT 96
[2022-09-06] MEDS: GABAPENTIN 300 MG CAP PO SCH ×2 (08:44→22:31)
[2022-09-06] MEDS: LACTOBACILLUS ACIDOPHILUS CAP (BACID) PO SCH ×2 (08:44→18:37)
[2022-09-06] MEDS: IBUPROFEN 600MG TAB PO SCH ×2 (08:45→22:31)
[2022-09-06] MEDS: ASCORBIC ACID 500 MG TAB PO SCH ×2 (08:45→18:37)
[2022-09-06] MEDS: PANTOPRAZOLE 40MG TAB (PROTONIX) PO SCH (08:46)
[2022-09-06] MEDS: APIXABAN 5 MG TAB (ELIQUIS) PO SCH ×2 (08:46→22:32)
[2022-09-06] MEDS: FERROUS SULFATE 325MG TAB PO SCH ×2 (08:46→22:31)
[2022-09-06] MEDS: KETOCONAZOLE 2% CREAM TOP SCH (08:47)
[2022-09-06] MEDS: SENNA 8.6 MG TAB (SENOKOT) PO SCH (22:30)
[2022-09-06] MEDS: RAMELTEON 8 MG TAB (ROZEREM) PO PRN (22:30)
[2022-09-06] MEDS: ANUSOL HC CREAM 30GM TOP SCH (22:30)
[2022-09-07 01:39] LABS: HEMATOCRIT 35.2 % (42.0-52.0); HEMOGLOBIN 11.2 g/dl (13.5-17.5); MEAN CORPUSCULAR HEMOGLOBIN 27.4 pg (27.0-33.0); MEAN CORPUSCULAR HGB CONC 31.8 g/dl (32.0-36.5); MEAN CORPUSCULAR VOLUME 86.1 fl (80.0-96.0); PLATELET COUNT, AUTOMATED 217 10^3/uL (150-450); RED BLOOD COUNT 4.09 10^6/uL (4.30-6.10); WHITE BLOOD COUNT 6.2 10^3/uL (4.0-10.0)
[2022-09-07 02:12] LABS: BLOOD UREA NITROGEN 15 MG/DL (9-23); CALCIUM LEVEL 9.6 MG/DL (8.5-10.1); CARBON DIOXIDE LEVEL 29 MMOL/L (20-31); CHLORIDE LEVEL 105 MMOL/L (98-107); CREATININE FOR GFR 0.68 MG/DL (0.70-1.30); GLOMERULAR FILTRATION RATE > 60.0 (>60); GLUCOSE, FASTING 95 MG/DL (60-100); POTASSIUM SERUM 4.1 MMOL/L (3.5-5.1); SODIUM LEVEL 141 MMOL/L (136-145)
[2022-09-07 02:55] VITALS: BP 114/64; TEMP 97.9; O2SAT 97
[2022-09-07] MEDS: oxyCODONE 5MG TAB PO PRN ×3 (05:08→18:08)
[2022-09-07] MEDS: VANCOMYCIN HCL 1,000 MG, VIAL MATE ADAPTER 1 EACH in D5W 250 ML IV SCH ×2 (05:08→16:41)
[2022-09-07] MEDS: SODIUM CHLORIDE 0.9% INJ 10 ML SYR IV SCH ×2 (06:30→16:42)
[2022-09-07] MEDS: LACTOBACILLUS ACIDOPHILUS CAP (BACID) PO SCH ×2 (09:06→16:43)
[2022-09-07] MEDS: APIXABAN 5 MG TAB (ELIQUIS) PO SCH ×2 (09:07→21:14)
[2022-09-07] MEDS: GABAPENTIN 300 MG CAP PO SCH ×2 (09:07→21:14)
[2022-09-07] MEDS: FERROUS SULFATE 325MG TAB PO SCH ×2 (09:07→21:14)
[2022-09-07] MEDS: IBUPROFEN 600MG TAB PO SCH ×2 (09:07→21:14)
[2022-09-07] MEDS: ASCORBIC ACID 500 MG TAB PO SCH ×2 (09:07→16:43)
[2022-09-07] MEDS: PANTOPRAZOLE 40MG TAB (PROTONIX) PO SCH (09:07)
[2022-09-07] MEDS: KETOCONAZOLE 2% CREAM TOP SCH (09:08)
[2022-09-07] MEDS: SENNA 8.6 MG TAB (SENOKOT) PO SCH (21:14)
[2022-09-07] MEDS: ANUSOL HC CREAM 30GM TOP SCH (21:15)
[2022-09-08] MEDS: oxyCODONE 5MG TAB PO PRN ×4 (00:19→19:41)
[2022-09-08] MEDS: VANCOMYCIN HCL 1,000 MG, VIAL MATE ADAPTER 1 EACH in D5W 250 ML IV SCH ×2 (05:06→18:06)
[2022-09-08] MEDS: SODIUM CHLORIDE 0.9% INJ 10 ML SYR IV SCH ×2 (05:06→18:07)
[2022-09-08 06:00] VITALS: BP 113/60; TEMP 97.7; O2SAT 97
[2022-09-08] MEDS: ASCORBIC ACID 500 MG TAB PO SCH ×2 (07:45→18:06)
[2022-09-08] MEDS: GABAPENTIN 300 MG CAP PO SCH ×2 (07:46→21:09)
[2022-09-08] MEDS: LACTOBACILLUS ACIDOPHILUS CAP (BACID) PO SCH ×2 (07:46→18:06)
[2022-09-08] MEDS: PANTOPRAZOLE 40MG TAB (PROTONIX) PO SCH (07:46)
[2022-09-08] MEDS: APIXABAN 5 MG TAB (ELIQUIS) PO SCH ×2 (07:46→21:09)
[2022-09-08] MEDS: FERROUS SULFATE 325MG TAB PO SCH ×2 (07:46→21:09)
[2022-09-08] MEDS: IBUPROFEN 600MG TAB PO SCH ×2 (07:48→21:00)
[2022-09-08] MEDS: KETOCONAZOLE 2% CREAM TOP SCH (07:49)
[2022-09-08] MEDS: SENNA 8.6 MG TAB (SENOKOT) PO SCH (21:09)
[2022-09-08] MEDS: RAMELTEON 8 MG TAB (ROZEREM) PO PRN (21:09)
[2022-09-08] MEDS: ANUSOL HC CREAM 30GM TOP SCH (21:10)
[2022-09-09] MEDS: SODIUM CHLORIDE 0.9% INJ 10 ML SYR IV SCH ×2 (04:57→17:44)
[2022-09-09] MEDS: VANCOMYCIN HCL 1,000 MG, VIAL MATE ADAPTER 1 EACH in D5W 250 ML IV SCH ×2 (04:58→17:42)
[2022-09-09] MEDS: oxyCODONE 5MG TAB PO PRN ×3 (04:59→21:16)
[2022-09-09 06:00] VITALS: BP 110/60; TEMP 97.7; O2SAT 97
[2022-09-09] MEDS: IBUPROFEN 600MG TAB PO SCH ×2 (09:00→21:00)
[2022-09-09] MEDS: FERROUS SULFATE 325MG TAB PO SCH ×2 (10:03→21:16)
[2022-09-09] MEDS: LACTOBACILLUS ACIDOPHILUS CAP (BACID) PO SCH ×2 (10:03→17:42)
[2022-09-09] MEDS: PANTOPRAZOLE 40MG TAB (PROTONIX) PO SCH (10:03)
[2022-09-09] MEDS: ASCORBIC ACID 500 MG TAB PO SCH ×2 (10:03→17:42)
[2022-09-09] MEDS: GABAPENTIN 300 MG CAP PO SCH ×2 (10:03→21:16)
[2022-09-09] MEDS: APIXABAN 5 MG TAB (ELIQUIS) PO SCH ×2 (10:03→21:16)
[2022-09-09] MEDS: KETOCONAZOLE 2% CREAM TOP SCH (10:04)
[2022-09-09] MEDS: ONDANSETRON 4MG 2ML VIAL IV PRN (17:49)
[2022-09-09] MEDS: ANUSOL HC CREAM 30GM TOP SCH (21:15)
[2022-09-09] MEDS: SENNA 8.6 MG TAB (SENOKOT) PO SCH (21:16)
[2022-09-10 02:05] VITALS: BP 125/73; TEMP 97.7; O2SAT 96
[2022-09-10] MEDS: VANCOMYCIN HCL 1,000 MG, VIAL MATE ADAPTER 1 EACH in D5W 250 ML IV SCH ×2 (05:06→18:13)
[2022-09-10] MEDS: SODIUM CHLORIDE 0.9% INJ 10 ML SYR IV SCH ×2 (06:28→18:12)
[2022-09-10] MEDS: oxyCODONE 5MG TAB PO PRN ×2 (06:29→18:12)
[2022-09-10] MEDS: PANTOPRAZOLE 40MG TAB (PROTONIX) PO SCH (08:00)
[2022-09-10] MEDS: LACTOBACILLUS ACIDOPHILUS CAP (BACID) PO SCH ×2 (08:00→18:12)
[2022-09-10] MEDS: APIXABAN 5 MG TAB (ELIQUIS) PO SCH ×2 (08:00→20:27)
[2022-09-10] MEDS: FERROUS SULFATE 325MG TAB PO SCH ×2 (08:00→20:27)
[2022-09-10] MEDS: GABAPENTIN 300 MG CAP PO SCH ×2 (08:00→20:27)
[2022-09-10] MEDS: ASCORBIC ACID 500 MG TAB PO SCH ×2 (08:00→18:12)
[2022-09-10] MEDS: IBUPROFEN 600MG TAB PO SCH ×3 (08:02→18:00)
[2022-09-10] MEDS: KETOCONAZOLE 2% CREAM TOP SCH (08:02)
[2022-09-10 10:45] LABS: BASO # 0.1 10^3/uL (0.0-0.2); BASO % 0.7 % (0.0-1.0); EOS # 0.5 10^3/uL (0.0-0.5); EOS % 6.2 % (0.0-3.0); HEMOGLOBIN 13.2 g/dl (13.5-17.5); LYMPH % 27.2 % (24.0-44.0); MEAN CORPUSCULAR HEMOGLOBIN 27.3 pg (27.0-33.0); MEAN CORPUSCULAR HGB CONC 31.4 g/dl (32.0-36.5); MONO # 0.6 10^3/uL (0.0-0.8); MONO % 8.7 % (2.0-8.0); NEUTROPHILS # 4.2 10^3/uL (1.5-8.5); NEUTROPHILS % 56.7 % (36.0-66.0); PLATELET COUNT, AUTOMATED 245 10^3/uL (150-450); RED BLOOD COUNT 4.83 10^6/uL (4.30-6.10); WHITE BLOOD COUNT 7.4 10^3/uL (4.0-10.0)
[2022-09-10 11:08] LABS: ALBUMIN 3.7 G/DL (3.2-5.2); ALKALINE PHOSPHATASE 112 U/L (46-116); ALT/SGPT 52 U/L (7.0-40); AST/SGOT 13 U/L (<34); BILIRUBIN,TOTAL 0.5 MG/DL (0.3-1.2); BLOOD UREA NITROGEN 13 MG/DL (9-23); CALCIUM LEVEL 9.2 MG/DL (8.5-10.1); CARBON DIOXIDE LEVEL 29 MMOL/L (20-31); CHLORIDE LEVEL 104 MMOL/L (98-107); CREATININE FOR GFR 0.68 MG/DL (0.70-1.30); GLOMERULAR FILTRATION RATE > 60.0 (>60); GLUCOSE, FASTING 84 MG/DL (60-100); POTASSIUM SERUM 4.2 MMOL/L (3.5-5.1); SODIUM LEVEL 139 MMOL/L (136-145)
[2022-09-10 11:14] LABS: PROCALCITONIN <0.04 ng/ml
[2022-09-10] MEDS ORDERED: PROHANCE 279.3MG/ML 5ML VIAL As Ordered ONE (11:40)
[2022-09-10] MEDS ORDERED: PROHANCE 279.3MG/ML 15ML VIAL As Ordered ONE (11:40)
[2022-09-10 11:48] LABS: ERYTHROCYTE SEDIMENTATION RATE 45 mm/hr (0-15)
[2022-09-10] MEDS: SUCRALFATE 1 GM TAB PO SCH ×2 (12:29→18:12)
[2022-09-10] MEDS: SENNA 8.6 MG TAB (SENOKOT) PO SCH (20:27)
[2022-09-10] MEDS: ANUSOL HC CREAM 30GM TOP SCH (20:27)
[2022-09-10 23:29] LABS: HEMOGLOBIN 11.4 g/dl (13.5-17.5); MEAN CORPUSCULAR HEMOGLOBIN 27.1 pg (27.0-33.0); MEAN CORPUSCULAR HGB CONC 31.7 g/dl (32.0-36.5); MEAN CORPUSCULAR VOLUME 85.7 fl (80.0-96.0); PLATELET COUNT, AUTOMATED 226 10^3/uL (150-450); WHITE BLOOD COUNT 7.4 10^3/uL (4.0-10.0)
[2022-09-10 23:52] LABS: BLOOD UREA NITROGEN 13 MG/DL (9-23); CALCIUM LEVEL 9.6 MG/DL (8.5-10.1); CARBON DIOXIDE LEVEL 28 MMOL/L (20-31); CHLORIDE LEVEL 105 MMOL/L (98-107); CREATININE FOR GFR 0.77 MG/DL (0.70-1.30); GLOMERULAR FILTRATION RATE > 60.0 (>60); GLUCOSE, FASTING 99 MG/DL (60-100); POTASSIUM SERUM 4.1 MMOL/L (3.5-5.1); SODIUM LEVEL 137 MMOL/L (136-145)
[2022-09-11 01:33] VITALS: BP 122/73; TEMP 98.1; O2SAT 97
[2022-09-11] MEDS: oxyCODONE 5MG TAB PO PRN ×4 (01:41→21:35)
[2022-09-11] MEDS: VANCOMYCIN HCL 1,000 MG, VIAL MATE ADAPTER 1 EACH in D5W 250 ML IV SCH ×2 (05:00→17:20)
[2022-09-11] MEDS: SODIUM CHLORIDE 0.9% INJ 10 ML SYR IV PRN (06:18)
[2022-09-11] MEDS: SODIUM CHLORIDE 0.9% INJ 10 ML SYR IV SCH ×2 (06:18→18:40)
[2022-09-11] MEDS: IBUPROFEN 600MG TAB PO SCH ×2 (08:00→17:21)
[2022-09-11] MEDS: LACTOBACILLUS ACIDOPHILUS CAP (BACID) PO SCH ×2 (09:23→17:20)
[2022-09-11] MEDS: PANTOPRAZOLE 40MG TAB (PROTONIX) PO SCH (09:24)
[2022-09-11] MEDS: FERROUS SULFATE 325MG TAB PO SCH ×2 (09:24→21:02)
[2022-09-11] MEDS: GABAPENTIN 300 MG CAP PO SCH ×2 (09:24→21:02)
[2022-09-11] MEDS: ASCORBIC ACID 500 MG TAB PO SCH ×2 (09:24→17:20)
[2022-09-11] MEDS: SUCRALFATE 1 GM TAB PO SCH ×2 (09:24→17:20)
[2022-09-11] MEDS: APIXABAN 5 MG TAB (ELIQUIS) PO SCH ×2 (09:24→21:03)
[2022-09-11] MEDS: KETOCONAZOLE 2% CREAM TOP SCH (09:25)
[2022-09-11] MEDS: ONDANSETRON 4MG 2ML VIAL IV PRN (17:19)
[2022-09-11] MEDS: SENNA 8.6 MG TAB (SENOKOT) PO SCH (21:02)
[2022-09-11] MEDS: ANUSOL HC CREAM 30GM TOP SCH (21:04)
[2022-09-12] MEDS: oxyCODONE 5MG TAB PO PRN ×3 (05:12→21:56)
[2022-09-12] MEDS: SODIUM CHLORIDE 0.9% INJ 10 ML SYR IV SCH ×2 (05:13→17:38)
[2022-09-12 06:00] VITALS: BP 117/70; TEMP 98.1; O2SAT 98
[2022-09-12] MEDS: IBUPROFEN 600MG TAB PO SCH ×2 (08:00→17:32)
[2022-09-12] MEDS: FERROUS SULFATE 325MG TAB PO SCH ×2 (08:28→21:55)
[2022-09-12] MEDS: PANTOPRAZOLE 40MG TAB (PROTONIX) PO SCH (08:28)
[2022-09-12] MEDS: SUCRALFATE 1 GM TAB PO SCH ×2 (08:28→17:35)
[2022-09-12] MEDS: GABAPENTIN 300 MG CAP PO SCH ×2 (08:29→21:55)
[2022-09-12] MEDS: APIXABAN 5 MG TAB (ELIQUIS) PO SCH ×2 (08:29→21:55)
[2022-09-12] MEDS: ASCORBIC ACID 500 MG TAB PO SCH ×2 (08:29→17:35)
[2022-09-12] MEDS: KETOCONAZOLE 2% CREAM TOP SCH (08:29)
[2022-09-12] MEDS: LACTOBACILLUS ACIDOPHILUS CAP (BACID) PO SCH ×2 (08:29→17:35)
[2022-09-12] MEDS: SENNA 8.6 MG TAB (SENOKOT) PO SCH (21:55)
[2022-09-12] MEDS: ANUSOL HC CREAM 30GM TOP SCH (21:57)
[2022-09-13] MEDS: SODIUM CHLORIDE 0.9% INJ 10 ML SYR IV SCH ×2 (05:17→18:02)
[2022-09-13] MEDS: oxyCODONE 5MG TAB PO PRN ×3 (05:27→18:00)
[2022-09-13 05:36] VITALS: BP 102/58; TEMP 97.9; O2SAT 98
[2022-09-13] MEDS: IBUPROFEN 600MG TAB PO SCH ×2 (08:00→18:00)
[2022-09-13] MEDS: APIXABAN 5 MG TAB (ELIQUIS) PO SCH ×2 (09:18→21:23)
[2022-09-13] MEDS: LACTOBACILLUS ACIDOPHILUS CAP (BACID) PO SCH ×2 (09:18→18:01)
[2022-09-13] MEDS: FERROUS SULFATE 325MG TAB PO SCH ×2 (09:18→21:23)
[2022-09-13] MEDS: ASCORBIC ACID 500 MG TAB PO SCH ×2 (09:18→18:00)
[2022-09-13] MEDS: GABAPENTIN 300 MG CAP PO SCH ×2 (09:18→21:23)
[2022-09-13] MEDS: PANTOPRAZOLE 40MG TAB (PROTONIX) PO SCH (09:18)
[2022-09-13] MEDS: SUCRALFATE 1 GM TAB PO SCH ×2 (09:18→18:01)
[2022-09-13] MEDS: KETOCONAZOLE 2% CREAM TOP SCH (09:20)
[2022-09-13 14:00] VITALS: BP 108/60; TEMP 97.5; O2SAT 97
[2022-09-13 20:27] VITALS: BP 122/78; TEMP 97.3; O2SAT 97
[2022-09-13] MEDS: ANUSOL HC CREAM 30GM TOP SCH (21:23)
[2022-09-13] MEDS: SENNA 8.6 MG TAB (SENOKOT) PO SCH (21:23)
[2022-09-14] MEDS: oxyCODONE 5MG TAB PO PRN ×4 (00:53→18:57)
[2022-09-14 05:51] VITALS: BP 109/70; TEMP 97.7; O2SAT 97
[2022-09-14] MEDS: SODIUM CHLORIDE 0.9% INJ 10 ML SYR IV SCH ×2 (06:14→17:10)
[2022-09-14 06:29] LABS: HEMATOCRIT 36.9 % (42.0-52.0); HEMOGLOBIN 11.7 g/dl (13.5-17.5); MEAN CORPUSCULAR HEMOGLOBIN 27.5 pg (27.0-33.0); MEAN CORPUSCULAR HGB CONC 31.7 g/dl (32.0-36.5); MEAN CORPUSCULAR VOLUME 86.8 fl (80.0-96.0); PLATELET COUNT, AUTOMATED 220 10^3/uL (150-450); RED BLOOD COUNT 4.25 10^6/uL (4.30-6.10); WHITE BLOOD COUNT 6.7 10^3/uL (4.0-10.0)
[2022-09-14 06:46] LABS: BLOOD UREA NITROGEN 16 MG/DL (9-23); CALCIUM LEVEL 9.8 MG/DL (8.5-10.1); CARBON DIOXIDE LEVEL 28 MMOL/L (20-31); CHLORIDE LEVEL 103 MMOL/L (98-107); CREATININE FOR GFR 0.68 MG/DL (0.70-1.30); GLOMERULAR FILTRATION RATE > 60.0 (>60); GLUCOSE, FASTING 98 MG/DL (60-100); POTASSIUM SERUM 3.9 MMOL/L (3.5-5.1); SODIUM LEVEL 136 MMOL/L (136-145)
[2022-09-14] MEDS: IBUPROFEN 600MG TAB PO SCH ×2 (08:00→17:10)
[2022-09-14] MEDS: ASCORBIC ACID 500 MG TAB PO SCH ×2 (10:03→17:08)
[2022-09-14] MEDS: LACTOBACILLUS ACIDOPHILUS CAP (BACID) PO SCH ×2 (10:03→17:07)
[2022-09-14] MEDS: PANTOPRAZOLE 40MG TAB (PROTONIX) PO SCH (10:03)
[2022-09-14] MEDS: SUCRALFATE 1 GM TAB PO SCH ×2 (10:04→17:08)
[2022-09-14] MEDS: KETOCONAZOLE 2% CREAM TOP SCH (10:04)
[2022-09-14] MEDS: APIXABAN 5 MG TAB (ELIQUIS) PO SCH ×2 (10:04→20:47)
[2022-09-14] MEDS: FERROUS SULFATE 325MG TAB PO SCH ×2 (10:04→20:47)
[2022-09-14] MEDS: GABAPENTIN 300 MG CAP PO SCH ×2 (10:04→20:47)
[2022-09-14] MEDS: SENNA 8.6 MG TAB (SENOKOT) PO SCH (20:47)
[2022-09-14] MEDS: ANUSOL HC CREAM 30GM TOP SCH (20:49)
[2022-09-15] MEDS: SODIUM CHLORIDE 0.9% INJ 10 ML SYR IV PRN (05:51)
[2022-09-15] MEDS: SODIUM CHLORIDE 0.9% INJ 10 ML SYR IV SCH ×2 (05:51→19:06)
[2022-09-15 06:00] VITALS: BP 112/70; TEMP 97.9; O2SAT 97
[2022-09-15] MEDS: IBUPROFEN 600MG TAB PO SCH ×3 (08:00→20:56)
[2022-09-15] MEDS: SUCRALFATE 1 GM TAB PO SCH ×2 (09:29→19:05)
[2022-09-15] MEDS: FERROUS SULFATE 325MG TAB PO SCH ×2 (09:29→20:57)
[2022-09-15] MEDS: ASCORBIC ACID 500 MG TAB PO SCH ×2 (09:29→19:05)
[2022-09-15] MEDS: LACTOBACILLUS ACIDOPHILUS CAP (BACID) PO SCH ×2 (09:29→19:05)
[2022-09-15] MEDS: oxyCODONE 5MG TAB PO PRN ×3 (09:29→23:44)
[2022-09-15] MEDS: GABAPENTIN 300 MG CAP PO SCH ×2 (09:29→20:57)
[2022-09-15] MEDS: APIXABAN 5 MG TAB (ELIQUIS) PO SCH ×2 (09:29→20:57)
[2022-09-15] MEDS: PANTOPRAZOLE 40MG TAB (PROTONIX) PO SCH (09:29)
[2022-09-15] MEDS: KETOCONAZOLE 2% CREAM TOP SCH (09:31)
[2022-09-15] MEDS: SENNA 8.6 MG TAB (SENOKOT) PO SCH (20:56)
[2022-09-15] MEDS: ANUSOL HC CREAM 30GM TOP SCH (20:58)
[2022-09-16] MEDS: SODIUM CHLORIDE 0.9% INJ 10 ML SYR IV SCH ×2 (04:59→18:09)
[2022-09-16] MEDS: SODIUM CHLORIDE 0.9% INJ 10 ML SYR IV PRN (05:00)
[2022-09-16 06:00] VITALS: BP 115/72; TEMP 97.7; O2SAT 95
[2022-09-16] MEDS: SUCRALFATE 1 GM TAB PO SCH ×2 (08:25→18:09)
[2022-09-16] MEDS: ASCORBIC ACID 500 MG TAB PO SCH ×2 (08:25→18:09)
[2022-09-16] MEDS: LACTOBACILLUS ACIDOPHILUS CAP (BACID) PO SCH ×2 (08:25→18:09)
[2022-09-16] MEDS: GABAPENTIN 300 MG CAP PO SCH ×2 (08:25→20:36)
[2022-09-16] MEDS: oxyCODONE 5MG TAB PO PRN ×3 (08:26→20:51)
[2022-09-16] MEDS: APIXABAN 5 MG TAB (ELIQUIS) PO SCH ×2 (08:26→20:36)
[2022-09-16] MEDS: PANTOPRAZOLE 40MG TAB (PROTONIX) PO SCH (08:27)
[2022-09-16] MEDS: FERROUS SULFATE 325MG TAB PO SCH ×2 (08:27→20:36)
[2022-09-16] MEDS: KETOCONAZOLE 2% CREAM TOP SCH (08:27)
[2022-09-16] MEDS: IBUPROFEN 600MG TAB PO SCH (18:00)
[2022-09-16] MEDS: ANUSOL HC CREAM 30GM TOP SCH (20:36)
[2022-09-16] MEDS: SENNA 8.6 MG TAB (SENOKOT) PO SCH (20:36)
[2022-09-17] MEDS: RAMELTEON 8 MG TAB (ROZEREM) PO PRN (01:40)
[2022-09-17] MEDS: oxyCODONE 5MG TAB PO PRN ×3 (04:27→17:31)
[2022-09-17] MEDS: SODIUM CHLORIDE 0.9% INJ 10 ML SYR IV SCH ×2 (05:05→17:33)
[2022-09-17] MEDS: SODIUM CHLORIDE 0.9% INJ 10 ML SYR IV PRN (05:06)
[2022-09-17 05:56] VITALS: BP 115/72; TEMP 98.1; O2SAT 96
[2022-09-17] MEDS: IBUPROFEN 600MG TAB PO SCH (08:00)
[2022-09-17] MEDS: KETOCONAZOLE 2% CREAM TOP SCH (09:00)
[2022-09-17] MEDS: GABAPENTIN 300 MG CAP PO SCH ×2 (09:32→20:38)
[2022-09-17] MEDS: LACTOBACILLUS ACIDOPHILUS CAP (BACID) PO SCH ×2 (09:32→17:32)
[2022-09-17] MEDS: APIXABAN 5 MG TAB (ELIQUIS) PO SCH ×2 (09:33→20:38)
[2022-09-17] MEDS: PANTOPRAZOLE 40MG TAB (PROTONIX) PO SCH (09:33)
[2022-09-17] MEDS: ASCORBIC ACID 500 MG TAB PO SCH ×2 (09:33→17:32)
[2022-09-17] MEDS: FERROUS SULFATE 325MG TAB PO SCH ×2 (09:33→20:38)
[2022-09-17] MEDS: SUCRALFATE 1 GM TAB PO SCH ×2 (09:33→17:32)
[2022-09-17] MEDS ORDERED: PANT40TA29 PO (14:20)
[2022-09-17] MEDS ORDERED: FERR1TAB8 PO (14:20)
[2022-09-17] MEDS ORDERED: ELIQ5TAB PO (14:20)
[2022-09-17] MEDS ORDERED: GABA-282 PO (14:20)
[2022-09-17] MEDS: ANUSOL HC CREAM 30GM TOP SCH (20:39)
[2022-09-17] MEDS: SENNA 8.6 MG TAB (SENOKOT) PO SCH (20:39)
[2022-09-18] MEDS: RAMELTEON 8 MG TAB (ROZEREM) PO PRN (00:25)
[2022-09-18] MEDS: oxyCODONE 5MG TAB PO PRN ×3 (00:25→12:36)
[2022-09-18] MEDS: SODIUM CHLORIDE 0.9% INJ 10 ML SYR IV SCH (05:42)
[2022-09-18 06:25] LABS: HEMATOCRIT 35.5 % (42.0-52.0); HEMOGLOBIN 11.4 g/dl (13.5-17.5); MEAN CORPUSCULAR HEMOGLOBIN 27.5 pg (27.0-33.0); MEAN CORPUSCULAR HGB CONC 32.1 g/dl (32.0-36.5); MEAN CORPUSCULAR VOLUME 85.5 fl (80.0-96.0); PLATELET COUNT, AUTOMATED 230 10^3/uL (150-450); RED BLOOD COUNT 4.15 10^6/uL (4.30-6.10); WHITE BLOOD COUNT 6.2 10^3/uL (4.0-10.0)
[2022-09-18 06:30] VITALS: BP 116/70; TEMP 98.6; O2SAT 96
[2022-09-18 06:50] LABS: BLOOD UREA NITROGEN 16 MG/DL (9-23); CALCIUM LEVEL 9.8 MG/DL (8.5-10.1); CARBON DIOXIDE LEVEL 28 MMOL/L (20-31); CHLORIDE LEVEL 105 MMOL/L (98-107); GLOMERULAR FILTRATION RATE > 60.0 (>60); GLUCOSE, FASTING 83 MG/DL (60-100); SODIUM LEVEL 138 MMOL/L (136-145)
[2022-09-18] MEDS: KETOCONAZOLE 2% CREAM TOP SCH (08:36)
[2022-09-18] MEDS: GABAPENTIN 300 MG CAP PO SCH (08:36)
[2022-09-18] MEDS: PANTOPRAZOLE 40MG TAB (PROTONIX) PO SCH (08:37)
[2022-09-18] MEDS: FERROUS SULFATE 325MG TAB PO SCH (08:37)
[2022-09-18] MEDS: LACTOBACILLUS ACIDOPHILUS CAP (BACID) PO SCH (08:37)
[2022-09-18] MEDS: SUCRALFATE 1 GM TAB PO SCH (08:37)
[2022-09-18] MEDS: ASCORBIC ACID 500 MG TAB PO SCH (08:38)
[2022-09-18] MEDS: APIXABAN 5 MG TAB (ELIQUIS) PO SCH (08:38)
[2022-09-18] MEDS ORDERED: OXYC-517 PO (11:31)
== END 2022-09-18 14:45 | disposition home or self-care (01) | DRG 349 ==
LOC: M MS5PR 15:54
PROVIDERS: ADMIT Internal Medicine; ATTEND Family Medicine
PROC: 30233N1 Transfusion of Nonautologous Red Blood Cells into Peripheral Vein, Percutaneous Approach (ICD-10-PCS; principal; 2022-08-05)
PROC: B246ZZZ Ultrasonography of Right and Left Heart (ICD-10-PCS; 2022-08-08)
PROC: 02HV33Z Insertion of Infusion Device into Superior Vena Cava, Percutaneous Approach (ICD-10-PCS; 2022-08-14)
DX: T84.51XA Infection and inflammatory reaction due to internal right hip prosthesis, initial encounter (principal); R65.20 Severe sepsis without septic shock; D68.32 Hemorrhagic disorder due to extrinsic circulating anticoagulants; I82.401 Acute embolism and thrombosis of unspecified deep veins of right lower extremity; I27.20 Pulmonary hypertension, unspecified; D62 Acute posthemorrhagic anemia; A41.9 Sepsis, unspecified organism; B18.2 Chronic viral hepatitis C; F19.10 Other psychoactive substance abuse, uncomplicated; F41.9 Anxiety disorder, unspecified; I34.0 Nonrheumatic mitral (valve) insufficiency; M48.061 Spinal stenosis, lumbar region without neurogenic claudication; M79.81 Nontraumatic hematoma of soft tissue; Z96.641 Presence of right artificial hip joint; M19.90 Unspecified osteoarthritis, unspecified site; Z79.899 Other long term (current) drug therapy; Z20.822 Contact with and (suspected) exposure to COVID-19; K21.9 Gastro-esophageal reflux disease without esophagitis; L21.9 Seborrheic dermatitis, unspecified

== ENCOUNTER 2022-09-23 03:47 | Emergency (ER) | payer OTHER ==
[~2022-09-23] VITALS: Ht 180.3 cm; Wt 104.0 kg
[~2022-09-23 03:47] MED LIST changes: +ACET1TAB55 PO; +DOCU100C16 PO; +ELIQ5TAB PO; +ENOX80IN3 SC; +FERR1TAB8 PO; +GABA-282 PO; +MELA3TAB30 PO; +METH-1164 PO; +MILKSUS3 PO; +NARC1SPR NARES; +OXYC-517 PO; +PANT40TA29 PO; +SENN-186 PO; +VANC1PLA6 IV; +VITMTA PO
[2022-09-23] MEDS ORDERED: LIDOCAINE 2% 5ML JELLY UROJET TOP ONE (06:55)
[2022-09-23 08:51] LABS: BARBITURATES URINE NEGATIVE (NEGATIVE); BENZODIAZEPINES URINE NEGATIVE (NEGATIVE); CANNABINOIDS URINE NEGATIVE (NEGATIVE); COCAINE METABOLITE URINE NEGATIVE (NEGATIVE); METHADONE URINE NEGATIVE (NEGATIVE); OPIATES URINE NEGATIVE (NEGATIVE); PHENCYCLIDINE URINE NEGATIVE (NEGATIVE)
[2022-09-23 09:04] LABS: AMPHETAMINES LEVEL URINE POSITIVE (NEGATIVE)
[2022-09-23] MEDS ORDERED: ACETAMINOPHEN 500 MG TAB PO ONE (09:50)
[2022-09-23] MEDS ORDERED: PERCOCET 5MG/325MG TAB PO ONE (09:50)
[2022-09-23 10:20] VITALS: BP 126/83; TEMP 96.7; O2SAT 96
[2022-09-28] MEDS ORDERED: TRAM50TA2 PO (18:35)
[2022-09-28] MEDS ORDERED: BACT800T5 PO (18:35)
== END 2022-09-23 10:49 | disposition home or self-care (01) ==
LOC: EDBD 03:47 → M ED 03:47
DX: M25.551 Pain in right hip (principal); F15.10 Other stimulant abuse, uncomplicated; Z79.01 Long term (current) use of anticoagulants; Z79.899 Other long term (current) drug therapy

== ENCOUNTER → 2023-02-08 | Outpatient (CLI) | payer OTHER ==
[~2023-02-08] MED LIST changes: +BACT800T5 PO; -MIRT-62 PO; +MIRT-88 PO; +TRAM50TA2 PO
[2023-02-08 14:42] LABS: BASO % 0.5 % (0.0-1.0); EOS # 0.2 10^3/uL (0.0-0.5); HEMATOCRIT 43.3 % (42.0-52.0); LYMPH # 2.2 10^3/uL (1.5-5.0); LYMPH % 29.3 % (24.0-44.0); MEAN CORPUSCULAR HEMOGLOBIN 29.2 pg (27.0-33.0); MEAN CORPUSCULAR HGB CONC 32.3 g/dl (32.0-36.5); MEAN CORPUSCULAR VOLUME 90.2 fl (80.0-96.0); MONO # 0.4 10^3/uL (0.0-0.8); MONO % 5.9 % (2.0-8.0); NEUTROPHILS # 4.7 10^3/uL (1.5-8.5); NEUTROPHILS % 61.9 % (36.0-66.0); PLATELET COUNT, AUTOMATED 265 10^3/uL (150-450); WHITE BLOOD COUNT 7.5 10^3/uL (4.0-10.0)
[2023-02-08 14:51] LABS: ERYTHROCYTE SEDIMENTATION RATE 28 mm/hr (0-15)
[2023-02-08 15:06] LABS: BLOOD UREA NITROGEN 21 MG/DL (9-23); CALCIUM LEVEL 9.1 MG/DL (8.5-10.1); CARBON DIOXIDE LEVEL 25 MMOL/L (20-31); CHLORIDE LEVEL 104 MMOL/L (98-107); GLOMERULAR FILTRATION RATE > 60.0 (>60); GLUCOSE, FASTING 124 MG/DL (60-100); POTASSIUM SERUM 4.3 MMOL/L (3.5-5.1); SODIUM LEVEL 138 MMOL/L (136-145)
== END ==
LOC: M LAB 13:53
PROVIDERS: ATTEND Nurse Practitioner Adult Health
DX: Z01.818 Encounter for other preprocedural examination (principal)

== ENCOUNTER → 2023-10-15 | Outpatient (CLI) | payer OTHER ==
[~2023-10-15] MED LIST changes: +CEPH500C PO; -SENN1TAB41 PO; +SENN1TAB85 PO
[2023-10-15 09:51] LABS: HEMATOCRIT 41.3 % (42.0-52.0); HEMOGLOBIN 13.2 g/dl (13.5-17.5); MEAN CORPUSCULAR HEMOGLOBIN 28.7 pg (27.0-33.0); MEAN CORPUSCULAR VOLUME 89.8 fl (80.0-96.0); PLATELET COUNT, AUTOMATED 204 10^3/uL (150-450); WHITE BLOOD COUNT 5.7 10^3/uL (4.0-10.0)
[2023-10-15 10:19] LABS: ALKALINE PHOSPHATASE 136 U/L (46-116); ALT/SGPT 159 U/L (7.0-40); AST/SGOT 119 U/L (<34); BILIRUBIN,TOTAL 0.7 MG/DL (0.3-1.2); BLOOD UREA NITROGEN 21 MG/DL (9-23); CALCIUM LEVEL 8.9 MG/DL (8.5-10.1); CARBON DIOXIDE LEVEL 30 MMOL/L (20-31); CHLORIDE LEVEL 106 MMOL/L (98-107); CREATININE FOR GFR 0.96 MG/DL (0.70-1.30); GLOMERULAR FILTRATION RATE > 60.0 (>56); GLUCOSE, FASTING 99 MG/DL (60-100); POTASSIUM SERUM 4.9 MMOL/L (3.5-5.1); SODIUM LEVEL 136 MMOL/L (136-145); TOTAL PROTEIN 7.4 G/DL (5.7-8.2)
[2023-10-15 10:23] LABS: FREE T4 1.19 NG/DL (0.89-1.76)
== END ==
LOC: M LAB 08:33
PROVIDERS: ATTEND Internal Medicine Cardiovascular Disease
DX: F32.A Depression, unspecified (principal); R11.0 Nausea

== ENCOUNTER 2023-10-28 08:19 | Emergency (ER) | payer OTHER ==
[~2023-10-28] VITALS: Ht 180.3 cm; Wt 110.3 kg
[~2023-10-28 08:19] MED LIST changes: -CLONI1TA PO; -LEXA5TAB13 PO; -PROT1TAB2 PO; -SUBL100I SC; -WELLTAB38 PO
[2023-10-28] MEDS ORDERED: LEXA5TAB13 PO (08:32)
[2023-10-28] MEDS ORDERED: CLONI1TA PO (08:32)
[2023-10-28] MEDS ORDERED: WELLTAB38 PO (08:32)
[2023-10-28] MEDS ORDERED: SUBL100I SC (08:33)
[2023-10-28 09:21] LABS: BASO # 0.1 10^3/uL (0.0-0.2); BASO % 0.7 % (0.0-1.0); EOS # 0.3 10^3/uL (0.0-0.5); EOS % 4.5 % (0.0-3.0); HEMATOCRIT 43.1 % (42.0-52.0); HEMOGLOBIN 14.1 g/dl (13.5-17.5); LYMPH # 2.7 10^3/uL (1.5-5.0); LYMPH % 36.3 % (24.0-44.0); MEAN CORPUSCULAR HEMOGLOBIN 29.7 pg (27.0-33.0); MEAN CORPUSCULAR HGB CONC 32.7 g/dl (32.0-36.5); MEAN CORPUSCULAR VOLUME 90.7 fl (80.0-96.0); MONO # 0.6 10^3/uL (0.0-0.8); MONO % 7.9 % (2.0-8.0); NEUTROPHILS # 3.7 10^3/uL (1.5-8.5); NEUTROPHILS % 50.2 % (36.0-66.0); PLATELET COUNT, AUTOMATED 209 10^3/uL (150-450); RED BLOOD COUNT 4.75 10^6/uL (4.30-6.10); WHITE BLOOD COUNT 7.3 10^3/uL (4.0-10.0)
[2023-10-28 09:49] LABS: LIPASE 30 U/L (12-53)
[2023-10-28 09:52] LABS: ALBUMIN 4.2 G/DL (3.2-5.2); ALKALINE PHOSPHATASE 174 U/L (46-116); ALT/SGPT 150 U/L (7.0-40); AST/SGOT 114 U/L (<34); BILIRUBIN,DIRECT 0.1 MG/DL (<0.4); BILIRUBIN,TOTAL 0.3 MG/DL (0.3-1.2); BLOOD UREA NITROGEN 20 MG/DL (9-23); CALCIUM LEVEL 9.6 MG/DL (8.5-10.1); CARBON DIOXIDE LEVEL 30 MMOL/L (20-31); CHLORIDE LEVEL 105 MMOL/L (98-107); CREATININE FOR GFR 1.07 MG/DL (0.70-1.30); GLOMERULAR FILTRATION RATE > 60.0 (>56); GLUCOSE, FASTING 104 MG/DL (60-100); POTASSIUM SERUM 4.8 MMOL/L (3.5-5.1); SODIUM LEVEL 137 MMOL/L (136-145); TOTAL PROTEIN 7.7 G/DL (5.7-8.2)
[2023-10-28] MEDS: PANTOPRAZOLE 40MG VIAL IV ONE (10:35)
[2023-10-28] MEDS ORDERED: PROT1TAB2 PO (10:59)
[2023-10-28 11:09] VITALS: BP 114/70; TEMP 98.7; O2SAT 98
== END 2023-10-28 11:34 | disposition home or self-care (01) ==
LOC: M ED 08:19
DX: K21.9 Gastro-esophageal reflux disease without esophagitis (principal); F19.10 Other psychoactive substance abuse, uncomplicated; Z86.19 Personal history of other infectious and parasitic diseases; Z96.641 Presence of right artificial hip joint; Z79.899 Other long term (current) drug therapy
CPT/HCPCS: 80048; 80076; 83690; 85025; 96374; 99284; J2470

== ENCOUNTER → 2023-10-28 | Outpatient (CLI) | payer OTHER ==
[~2023-10-28] MED LIST changes: +CLONI1TA PO; +LEXA5TAB13 PO; +PROT1TAB2 PO; +SUBL100I SC; +WELLTAB38 PO
[2023-10-28 11:01] LABS: HEPATITIS B SURFACE ANTIGEN NEGATIVE (NEGATIVE)
[2023-10-28 11:23] LABS: HEPATITIS B CORE ANTIBODY IGM NEGATIVE (NEGATIVE)
[2023-10-28 11:56] LABS: HEPATITIS C VIRUS ABY INDEX > 11.00 INDEX (<0.8)
== END ==
LOC: M LAB 07:42
PROVIDERS: ATTEND Nurse Practitioner Adult Health
DX: B19.20 Unspecified viral hepatitis C without hepatic coma (principal)

== ENCOUNTER → 2024-04-29 | Outpatient (CLI) | payer OTHER ==
[~2024-04-29] MED LIST changes: +CLONI1TA PO; +GABA-1172 PO; -GABA-282 PO; +LEXA5TAB13 PO; +PROT1TAB2 PO; +SUBL100I SC; +WELLTAB38 PO
== END ==
LOC: M RAD 06:34
PROVIDERS: ATTEND Otolaryngology
DX: J34.81 Nasal mucositis (ulcerative) (principal)

== ENCOUNTER 2024-05-07 17:04 | Emergency (ER) | payer OTHER ==
[~2024-05-07] VITALS: Ht 180.3 cm; Wt 122.3 kg
[~2024-05-07 17:04] MED LIST changes: -FAMO20TA PO; -FIBE625T PO; -GINK60TA2 PO; -MELA5CAP2 PO; -METH-1177 PO; -MIRT-84 PO; -OXYB5TAB14 PO; -SENN8.6T28 PO
[2024-05-07 18:38] LABS: BASO # 0.1 10^3/uL (0.0-0.2); BASO % 0.5 % (0.0-1.0); EOS # 0.4 10^3/uL (0.0-0.5); EOS % 4.5 % (0.0-3.0); HEMOGLOBIN 12.5 g/dl (13.5-17.5); LYMPH # 2.8 10^3/uL (1.5-5.0); LYMPH % 30.4 % (24.0-44.0); MEAN CORPUSCULAR HEMOGLOBIN 28.7 pg (27.0-33.0); MEAN CORPUSCULAR HGB CONC 32.1 g/dl (32.0-36.5); MEAN CORPUSCULAR VOLUME 89.4 fl (80.0-96.0); MONO # 0.8 10^3/uL (0.0-0.8); MONO % 8.1 % (2.0-8.0); NEUTROPHILS # 5.2 10^3/uL (1.5-8.5); NEUTROPHILS % 56.2 % (36.0-66.0); PLATELET COUNT, AUTOMATED 255 10^3/uL (150-450); RED BLOOD COUNT 4.36 10^6/uL (4.30-6.10); WHITE BLOOD COUNT 9.3 10^3/uL (4.0-10.0)
[2024-05-07 18:56] LABS: ALBUMIN 3.8 G/DL (3.2-5.2); ALKALINE PHOSPHATASE 109 U/L (40-129); ALT/SGPT 23 U/L (7.0-40); AST/SGOT 27 U/L (<34); BILIRUBIN,DIRECT 0.1 MG/DL (<0.4); BILIRUBIN,TOTAL 0.3 MG/DL (0.3-1.2); BLOOD UREA NITROGEN 20 MG/DL (9-23); CALCIUM LEVEL 8.7 MG/DL (8.5-10.1); CARBON DIOXIDE LEVEL 25 MMOL/L (20-31); CHLORIDE LEVEL 108 MMOL/L (98-107); CREATININE FOR GFR 1.15 MG/DL (0.70-1.30); GLOMERULAR FILTRATION RATE > 60.0 (>56); GLUCOSE, FASTING 80 MG/DL (60-100); POTASSIUM SERUM 4.3 MMOL/L (3.5-5.1); SODIUM LEVEL 140 MMOL/L (136-145); TOTAL PROTEIN 7.2 G/DL (5.7-8.2)
[2024-05-07 21:33] VITALS: BP 140/96; TEMP 98.3; O2SAT 98
[2024-05-12] MEDS ORDERED: FAMO20TA PO (07:58)
[2024-05-12] MEDS ORDERED: OXYB5TAB14 PO (07:58)
[2024-05-12] MEDS ORDERED: MELA5CAP2 PO (07:58)
[2024-05-12] MEDS ORDERED: METH-1177 PO (07:58)
[2024-05-12] MEDS ORDERED: MIRT-84 PO (07:58)
[2024-05-12] MEDS ORDERED: FIBE625T PO (07:58)
[2024-05-12] MEDS ORDERED: SENN8.6T28 PO (07:58)
[2024-05-12] MEDS ORDERED: GINK60TA2 PO (07:58)
== END 2024-05-07 21:53 | disposition left against medical advice (07) ==
LOC: M ED 17:04
DX: Z53.21 Procedure and treatment not carried out due to patient leaving prior to being seen by health care provider (principal)

== ENCOUNTER → 2024-05-07 | Outpatient (CLI) | payer OTHER ==
[~2024-05-07] MED LIST changes: +FAMO20TA PO; +FIBE625T PO; +GINK60TA2 PO; +MELA5CAP2 PO; +METH-1177 PO; +MIRT-84 PO; +OXYB5TAB14 PO; +SENN8.6T28 PO
== END ==
LOC: M RAD 16:41
PROVIDERS: ATTEND Orthopaedic Surgery
DX: M79.89 Other specified soft tissue disorders (principal); Z96.641 Presence of right artificial hip joint; M79.661 Pain in right lower leg

== ENCOUNTER → 2024-05-14 | Outpatient (CLI) | payer OTHER ==
[~2024-05-14] MED LIST changes: +FAMO20TA PO; +FIBE625T PO; +GINK60TA2 PO; +MELA5CAP2 PO; +METH-1177 PO; +MIRT-84 PO; +OXYB5TAB14 PO; +SENN8.6T28 PO
== END ==
LOC: M RAD 08:48
DX: Z01.811 Encounter for preprocedural respiratory examination (principal)

== ENCOUNTER 2024-05-18 10:46 | Day surgery (SDC) | payer OTHER ==
[~2024-05-18] VITALS: Ht 180.3 cm; Wt 121.0 kg
[2024-05-18] MEDS ORDERED: LR 1,000 ML IV SCH ×2 (11:45→14:20)
[2024-05-18] MEDS ORDERED: LIDOCAINE 2% 100MG/5ML SDV (FOR ANES.) As Ordered ONE (12:41)
[2024-05-18] MEDS ORDERED: ONDANSETRON 4MG 2ML VIAL As Ordered ONE (12:41)
[2024-05-18] MEDS ORDERED: ROCURONIUM BROMIDE 50MG/5ML VIAL As Ordered ONE (12:41)
[2024-05-18] MEDS ORDERED: SUGAMMADEX SODIUM 500 MG/5 ML VIAL (BRIDION) As Ordered ONE (12:41)
[2024-05-18] MEDS ORDERED: MIDAZOLAM INJ 2MG/2ML VIAL As Ordered ONE (12:41)
[2024-05-18] MEDS ORDERED: fentaNYL 100 MCG/2 ML INJECTION As Ordered ONE (12:41)
[2024-05-18] MEDS ORDERED: propofoL 200 MG/20 ML VIAL As Ordered ONE (12:41)
[2024-05-18] MEDS ORDERED: ACETAMINOPHEN 1000MG/100ML IV BAG As Ordered ONE (12:41)
[2024-05-18] MEDS: OXYMETAZOLINE 0.05% NASAL SPRAY As Ordered ONE (13:58)
[2024-05-18] MEDS: COCAINE 4% 4ML NASAL SOLUTION BTL As Ordered ONE (13:59)
[2024-05-18] MEDS ORDERED: PHENYLephrine 500MCG 5ML (100MCG/ML) SYRINGE As Ordered ONE (14:04)
[2024-05-18] MEDS: LIDOCAINE W/EPINEPHRINE 1% 20ML VIAL As Ordered ONE (14:17)
[2024-05-18] MEDS ORDERED: fentaNYL 100 MCG/2 ML INJECTION IV PRN (14:20)
[2024-05-18] MEDS ORDERED: HYDROMORPHONE HCL 0.5 MG/ 0.5 ML SYRINGE IV PRN (14:20)
[2024-05-18] MEDS ORDERED: ONDANSETRON 4MG 2ML VIAL IV PRN (14:20)
[2024-05-18 15:08] VITALS: BP 133/85; TEMP 97.5; O2SAT 95
[2024-05-18] MEDS: oxyCODONE 5MG TAB PO PRN (15:14)
== END 2024-05-18 15:13 | disposition home or self-care (01) ==
LOC: M SDC 10:46
PROVIDERS: ATTEND Otolaryngology
DX: J34.89 Other specified disorders of nose and nasal sinuses (principal); B19.20 Unspecified viral hepatitis C without hepatic coma; Z87.891 Personal history of nicotine dependence; Z79.899 Other long term (current) drug therapy; Z86.73 Personal history of transient ischemic attack (TIA), and cerebral infarction without residual deficits; F41.9 Anxiety disorder, unspecified; F32.A Depression, unspecified; K21.9 Gastro-esophageal reflux disease without esophagitis; Z79.891 Long term (current) use of opiate analgesic; Z86.14 Personal history of Methicillin resistant Staphylococcus aureus infection
CPT/HCPCS: 31237; 88305; C9143; J0131; J1100; J2250; J2371; J2405; J3010

== ENCOUNTER → 2024-06-03 | Outpatient (CLI) | payer OTHER ==
[2024-06-03 11:00] LABS: AMORPHOUS SEDIMENT SMALL (NEGATIVE); BACTERIA, URINE AUTO NEGATIVE (NEGATIVE); MUCUS, URINE SMALL (NEGATIVE); RBC, URINE AUTO 1 /HPF (0-3); SQUAMOUS EPITHELIAL CELL UR AU 0 /HPF (0-6); WBC, URINE AUTO 1 /HPF (0-3)
[2024-06-03 11:20] LABS: ALBUMIN 3.9 G/DL (3.2-5.2); ALKALINE PHOSPHATASE 114 U/L (40-129); ALT/SGPT 18 U/L (7.0-40); AST/SGOT 22 U/L (<34); BILIRUBIN,TOTAL 0.6 MG/DL (0.3-1.2); BLOOD UREA NITROGEN 20 MG/DL (9-23); CALCIUM LEVEL 9.5 MG/DL (8.5-10.1); CARBON DIOXIDE LEVEL 27 MMOL/L (20-31); CHLORIDE LEVEL 107 MMOL/L (98-107); CREATININE FOR GFR 0.94 MG/DL (0.70-1.30); GLOMERULAR FILTRATION RATE > 60.0 (>56); GLUCOSE, FASTING 100 MG/DL (60-100); POTASSIUM SERUM 4.9 MMOL/L (3.5-5.1); SODIUM LEVEL 138 MMOL/L (136-145); TOTAL PROTEIN 7.5 G/DL (5.7-8.2)
[2024-06-03 11:34] LABS: HEPATITIS B SURFACE ANTIGEN NEGATIVE (NEGATIVE)
[2024-06-03 11:56] LABS: HEPATITIS B CORE ANTIBODY IGM NEGATIVE (NEGATIVE)
[2024-06-03 12:02] LABS: HEPATITIS C VIRUS ABY INDEX > 11.00 INDEX (<0.8)
[2024-06-04 22:58] LABS: HCV RNA QUANTITATION <15 NOT DETECTED IU/mL (NOT DETECTED); HCV RNA log10 <1.18 NOT DETECTED Log IU/mL (NOT DETECTED)
== END ==
LOC: M LAB 09:50
DX: Z00.8 Encounter for other general examination (principal)

== ENCOUNTER → 2024-06-17 | Outpatient (CLI) | payer OTHER | LOC: M RAD 10:57 | DX: R76.11 Nonspecific reaction to tuberculin skin test without active tuberculosis (principal) ==

== ENCOUNTER 2025-01-29 15:54 | Emergency (ER) | payer OTHER ==
[~2025-01-29] VITALS: Ht 180.3 cm; Wt 122.7 kg
[~2025-01-29 15:54] MED LIST changes: +PROZ10CA11 PO; -PROZ10CA7 PO
[2025-01-29 19:31] VITALS: BP 137/71; TEMP 96.7; O2SAT 96
== END 2025-01-29 19:33 | disposition home or self-care (01) ==
LOC: M ED 15:54
DX: R60.0 Localized edema (principal); M79.671 Pain in right foot; F19.10 Other psychoactive substance abuse, uncomplicated; Z86.718 Personal history of other venous thrombosis and embolism; F41.9 Anxiety disorder, unspecified; F32.A Depression, unspecified; Z79.899 Other long term (current) drug therapy